=== PATIENT | male | born 1960 | race Caucasian/White ===

== ENCOUNTER 2016-06-14 10:55 | Inpatient (IN) | payer OTHER ==
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
[2016-06-14] MEDS ORDERED: chlordiazePOXIDE HCL 25 MG CAPSULE PO PRN (16:23)
[2016-06-14] MEDS ORDERED: MAG HYDROX/AL HYDROX/SIMETH 30 ML UNIT-DOSE CUP PO PRN (16:23)
[2016-06-14] MEDS ORDERED: MAGNESIUM HYDROX 2400MG/30ML ORAL SUSPENSION 30 ML CUP PO PRN (16:23)
[2016-06-14] MEDS ORDERED: MAGNESIUM CITRATE 300 ML BOTTLE PO PRN (16:23)
[2016-06-14] MEDS ORDERED: MENTHOL/PHENOL 1 EACH UD MM PRN (16:23)
[2016-06-14] MEDS ORDERED: P-EPHED 60MG/TRIPROLIDI 2.5MG TABLET PO PRN (16:23)
[2016-06-14] MEDS ORDERED: guaiFENesin/D-METHORPHAN HB 10 ML UNIT-DOSE CUPS PO PRN (16:23)
[2016-06-14] MEDS ORDERED: LOPERAMIDE HCL 2 MG CAPSULE PO PRN (16:23)
[2016-06-14] MEDS ORDERED: chlordiazePOXIDE HCL 25 MG CAPSULE PO ONE (17:00)
[2016-06-14] MEDS: chlordiazePOXIDE HCL 25 MG CAPSULE PO SCH ×2 (17:53→22:03)
[2016-06-14] MEDS: THIAMINE HCL 100 MG TABLET (FP) PO SCH (22:03)
[2016-06-14] MEDS: hydrOXYzine PAMOATE 50 MG CAPSULE (FP) PO PRN (22:03)
[2016-06-15] MEDS: chlordiazePOXIDE HCL 25 MG CAPSULE PO SCH ×4 (05:37→22:24)
[2016-06-15 10:36] LABS: URINE APPEARANCE CLEAR; URINE BILIRUBIN NEGATIVE (NEGATIVE); URINE BLOOD NEGATIVE (NEGATIVE); URINE COLOR YELLOW; URINE GLUCOSE (UA) NEGATIVE (NEGATIVE); URINE KETONE NEGATIVE (NEGATIVE); URINE LEUK ESTERASE NEGATIVE (NEGATIVE); URINE NITRITE NEGATIVE (NEGATIVE); URINE PROTEIN NEGATIVE (NEGATIVE); URINE UROBILINOGEN 2.0 E.U/dl E.U./dl (0.2-1.0)
[2016-06-15 10:37] LABS: BASOPHIL 0.4 % (0-2.0); EOSINOPHIL 0.7 % (0-4.5); MCHC 33.5 g/dl (32.0-35.9); MEAN CELL VOLUME 89.7 fl (80-96); MEAN PLT VOLUME 8.5 fl (7.5-11.1); PLATELET COUNT 204 K/MM3 (134-434); RDW 15.7 % (11.9-15.9); WHITE BLOOD COUNT 7.8 K/mm3 (4.0-10.0)
[2016-06-15] MEDS: NICOTINE 21 MG/24 HOURS TOPICAL PATCH TD SCH (10:41)
[2016-06-15] MEDS: PRENATAL VITAMINS W/ FOLIC ACID TABLET (FP) PO SCH (10:41)
[2016-06-15 10:46] LABS: ALBUMIN 4.1 g/dl (3.4-5.0); ALK PHOS 131 U/L (45-117); ANION GAP 10 (8-16); BILIRUBIN,TOTAL 0.5 mg/dL (0.2-1.0); CALCIUM 10.1 mg/dL (8.5-10.1); CO2 26 mmol/L (21-32); CREATININE 0.8 mg/dL (0.7-1.3); GLUCOSE,RANDOM 86 mg/dL (74-106); SGOT/AST 30 U/L (15-37); SGPT/ALT 58 U/L (12-78); TOT PROT 8.2 g/dl (6.4-8.2)
[2016-06-15 11:32] LABS: HIV 1 & 2 AB NEGATIVE; HIV 1 AGp24 NEGATIVE
--- NOTE | 2016-06-15 11:34 | CONSULT ---
[facility] Psychiatric Consult - Data Date of interview: 06/15/16 Admission source: [facility] Identifying data: Readmisssion to [facility] for this 56 y/o male seeking detox treatment on for alcohol dependence.Patient is single,a father of one,domiciled,unemployed and supported on [facility] benefits. Substance Abuse History: - Smoking Cessation. Smoking history: Current every day smoker. Have you smoked in the past 12 months: Yes. Aproximately how many cigarettes per day: 10. Cigars Per Day: 0. Hx Chewing Tobacco Use: No. Initiated information on smoking cessation: Yes. 'Breaking Loose' booklet given : 06/14/16. - Substance & Tx. History. Hx Alcohol Use: Yes. Substance Use Type: Alcohol. Hx Substance Use Treatment: Yes. - Substances Abused. Alcohol. Route: Oral. Frequency: Daily. Amount used: 1 AND 1/2 PINTS VODKA. Age of first use: 37. Date of Last Use: 06/14/16. Patient confirmed. Medical History: Consistent with left eye blindness (traumatic injury in 1998). Psychiatric History: Patient denies. Physical/Sexual Abuse/Trauma History: Patient denies. Mental Status Exam - Mental Status Exam Alert and Oriented to: Time, Place, Person Cognitive Function: Good Patient Appearance: Well Groomed Mood: Hopeful, Euthymic Affect: Appropriate, Normal Range Patient Behavior: Fatigued, Appropriate, Cooperative Speech Pattern: Clear Voice Loudness: Normal Thought Process: Goal Oriented Thought Disorder: Not Present Hallucinations: Denies Suicidal Ideation: Denies Homicidal Ideation: Denies Insight/Judgement: Fair Sleep: Poorly, Difficulty falling asleep Appetite: Good Muscle strength/Tone: Normal Gait/Station: Normal Psychiatric Findings - Problem List ([place] 1, 2,3) (1) Alcohol dependence with uncomplicated withdrawal Current Visit: Yes Status: Acute (2) Nicotine dependence Current Visit: Yes Status: Acute Qualifiers: Nicotine product type: cigarettes Substance use status: uncomplicated Qualified Code(s): F17.210 - Nicotine dependence, cigarettes, uncomplicated (3) Substance induced mood disorder Current Visit: Yes Status: Chronic (4) 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 (5) Insomnia Current Visit: Yes Status: Acute - Initial Treatment Plan Initial Treatment Plan: Psychoeducation.Detoxification.Zolpidem 10 mg po hs prn (only for duration of detox course).Discussed with patient.He agrees with plan.Made aware of risk of parasomnias.Observation.
[2016-06-15] MEDS: ZOLPIDEM TARTRATE 5 MG TABLET PO PRN (22:22)
[2016-06-15] MEDS: THIAMINE HCL 100 MG TABLET (FP) PO SCH (22:22)
--- NOTE | 2016-06-15 23:11 | PN ---
S CIWA - CIWA Score Nausea/Vomitin-No Nausea/No Vomiting Muscle Tremors: 3 Anxiety: 3 Agitation: 4-Moderately Restless Paroxysmal Sweats: 3 Orientation: 0-Oriented Tacttile Disturbances: 0-None Auditory Disturbances: 0-None Visual Disturbances: 0-None Headache: 0-None Present CIWA-Ar Total Score: 13 BHS Progress Note (SOAP) Subjective: ANXIETY,TREMORS,SWEATING,INTERRUPTED SLEEP,RESTLESS. Objective: 06/15/16 23:09 Vital Signs - 8 hr 06/15/16 20:03 Temperature 97.1 F L Pulse Rate 90 Respiratory 18 Rate Blood Pressure 120/81 Assessment: 06/15/16 23:10 Withdrawal sx. Plan: CONTINUE DETOX
[2016-06-16] MEDS: chlordiazePOXIDE HCL 25 MG CAPSULE PO SCH ×2 (05:20→10:17)
[2016-06-16] MEDS: PRENATAL VITAMINS W/ FOLIC ACID TABLET (FP) PO SCH (10:17)
[2016-06-16] MEDS: NICOTINE 21 MG/24 HOURS TOPICAL PATCH TD SCH (10:18)
--- NOTE | 2016-06-16 15:11 | PN ---
S CIWA - CIWA Score Nausea/Vomitin Muscle Tremors: 4-Moderate,w/Arms Extend Anxiety: 4-Mod. Anxious/Guarded Agitation: 4-Moderately Restless Paroxysmal Sweats: No Perspiration Orientation: 0-Oriented Tacttile Disturbances: 1-Very Mild Itch/Numbness Auditory Disturbances: 0-None Visual Disturbances: 0-None Headache: 1-Very Mild CIWA-Ar Total Score: 20 BHS Progress Note (SOAP) Subjective: Nausea, diarrhea, anxiety, restless, interrupted sleep, sweating Objective: 06/16/16 15:10 Last Vital Signs Temp Pulse Resp BP Pulse Ox 96.1 F L 107 H 18 111/81 06/16/16 13:37 06/16/16 13:37 06/16/16 13:37 06/16/16 13:37 Laboratory Tests 06/15/16 06/15/16 06/15/16 06:00 06:00 06:00 WBC 7.8 D RBC 5.51 Hgb 16.5 D Hct 49.4 H D MCV 89.7 MCHC 33.5 RDW 15.7 Plt Count 204 MPV 8.5 Neutrophils % 74.0 Lymphocytes % 18.7 Monocytes % 6.2 Eosinophils % 0.7 Basophils % 0.4 Sodium 143 Potassium 4.6 Chloride 107 Carbon Dioxide 26 Anion Gap 10 BUN 12 Creatinine 0.8 Creat Clearance w eGFR > 60 Random Glucose 86 Calcium 10.1 Total Bilirubin 0.5 AST 30 D ALT 58 Alkaline Phosphatase 131 H D Total Protein 8.2 Albumin 4.1 Urine Color Urine Appearance Urine pH Ur Specific [place] Urine Protein Urine Glucose (UA) Urine Ketones Urine Blood Urine Nitrite Urine Bilirubin Urine Urobilinogen Ur Leukocyte Esterase RPR Titer Nonreactive HIV 1&2 Antibody Screen HIV P24 Antigen 06/15/16 06/15/16 07:30 08:00 WBC RBC Hgb Hct MCV MCHC RDW Plt Count MPV Neutrophils % Lymphocytes % Monocytes % Eosinophils % Basophils % Sodium Potassium Chloride Carbon Dioxide Anion Gap BUN Creatinine Creat Clearance w eGFR Random Glucose Calcium Total Bilirubin AST ALT Alkaline Phosphatase Total Protein Albumin Urine Color Yellow Urine Appearance Clear Urine pH 5.0 D Ur Specific [place] 1.021 Urine Protein Negative Urine Glucose (UA) Negative Urine Ketones Negative Urine Blood Negative Urine Nitrite Negative Urine Bilirubin Negative Urine Urobilinogen 2.0 e.u/dl Ur Leukocyte Esterase Negative RPR Titer HIV 1&2 Antibody Screen Negative HIV P24 Antigen Negative Labs noted Assessment: 06/16/16 15:11 Withdrawal symptoms Plan: Continue detox
[2016-06-16] MEDS: chlordiazePOXIDE 5 MG CAPSULE PO SCH ×2 (17:33→22:43)
[2016-06-16] MEDS: THIAMINE HCL 100 MG TABLET (FP) PO SCH (22:43)
[2016-06-16] MEDS: ZOLPIDEM TARTRATE 5 MG TABLET PO PRN (22:45)
[2016-06-17] MEDS: chlordiazePOXIDE 5 MG CAPSULE PO SCH ×2 (05:23→10:29)
[2016-06-17] MEDS: NICOTINE 21 MG/24 HOURS TOPICAL PATCH TD SCH (10:29)
[2016-06-17] MEDS: PRENATAL VITAMINS W/ FOLIC ACID TABLET (FP) PO SCH (10:29)
--- NOTE | 2016-06-17 12:01 | PN ---
BHS Progress Note (SOAP) Subjective: alert,irritable,anxious,interrupted sleep Objective: 06/17/16 12:00 Vital Signs Temperature 96.7 F L 06/17/16 10:03 Pulse Rate 100 H 06/17/16 10:03 Respiratory Rate 19 06/17/16 10:03 Blood Pressure 116/78 06/17/16 10:03 O2 Sat by Pulse Oximetry (%) Assessment: 06/17/16 12:01 withdrawal symptom Plan: continue detox
[2016-06-17] MEDS: ACETAMINOPHEN 325 MG TABLET (FP) PO PRN (17:11)
[2016-06-17] MEDS: chlordiazePOXIDE HCL 10 MG CAPSULE PO SCH ×2 (17:11→22:09)
[2016-06-17] MEDS: ZOLPIDEM TARTRATE 5 MG TABLET PO PRN (22:09)
[2016-06-17] MEDS: THIAMINE HCL 100 MG TABLET (FP) PO SCH (22:10)
[2016-06-18] MEDS: chlordiazePOXIDE HCL 10 MG CAPSULE PO SCH (06:20)
--- NOTE | 2016-06-18 09:06 | PN ---
S Progress Note (SOAP) Subjective: ALERT,NO COMPLAINT Objective: 06/18/16 09:04 Vital Signs Temperature 97.3 F L 06/18/16 06:25 Pulse Rate 94 H 06/18/16 06:25 Respiratory Rate 16 06/18/16 06:25 Blood Pressure 118/74 06/18/16 06:25 O2 Sat by Pulse Oximetry (%) Assessment: 06/18/16 09:04 DETOX COMPLETED,NO WITHDRAWAL SYMPTOM Plan: DISCHARGE FROM DETOX TODAY,CONTINUE NEXT LEVEL OF CARE IN [facility], TRANSFER TO REHAB
--- NOTE | 2016-06-18 09:09 | DS ---
[facility] Detox Discharge Summary Admission Date: 06/14/16 Discharge Date: 06/18/16 - History Present History: Alcohol Dependence Additional Comments: TRANSFER TO [facility] FOR CONTINUING CARE Pertinent Past History: BLINDNESS OF LEFT EYE NICOTINE DEPENDENCE POSITIVE PPD - Physical Exam Results Vital Signs: Vital Signs Temperature 97.3 F L 06/18/16 06:25 Pulse Rate 94 H 06/18/16 06:25 Respiratory Rate 16 06/18/16 06:25 Blood Pressure 118/74 06/18/16 06:25 O2 Sat by Pulse Oximetry (%) Pertinent Admission Physical Exam Findings: WITHDRAWAL SYMPTOM - Treatment Hospital Course: Detox Protocol Followed, Detoxed Safely, Responded well, Discharged Condition Good, Rehab Referral Accepted Patient has Accepted a Rehab Referral to: [facility] - Medication Discharge Medications: Ambulatory Orders NK [No Known Home Medication] 06/14/16 - AMA Did Patient Leave Against Medical Advice: No
[2016-06-18] MEDS: NICOTINE 21 MG/24 HOURS TOPICAL PATCH TD SCH (10:37)
[2016-06-18] MEDS: PRENATAL VITAMINS W/ FOLIC ACID TABLET (FP) PO SCH (10:37)
[2016-06-18 11:18] VITALS: BMI 24.1
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
[2016-06-18] MEDS: diphenhydrAMINE HCL 50 MG CAPSULE PO PRN (21:19)
[2016-06-18] MEDS: THIAMINE HCL 100 MG TABLET (FP) PO SCH (21:19)
--- NOTE | 2016-06-19 09:39 | EKG ---
Test Reason : Blood Pressure : / mmHG Vent. Rate : 078 BPM Atrial Rate : 078 BPM P-R Int : 150 ms QRS Dur : 092 ms QT Int : 366 ms P-R-T Axes : 083 058 068 degrees QTc Int : 417 ms NORMAL SINUS RHYTHM NORMAL ECG NO PREVIOUS ECGS AVAILABLE Confirmed by MARCELLE STEINER, JENN ([id number]) on 06/19/2016 9:39:28 AM Referred By: Jose Parra Confirmed By:JENN IBANEZ MD
[2016-06-19] MEDS: NICOTINE 21 MG/24 HOURS TOPICAL PATCH TD SCH (10:38)
[2016-06-19] MEDS: PRENATAL VITAMINS W/ FOLIC ACID TABLET (FP) PO SCH (10:38)
[2016-06-19] MEDS: THIAMINE HCL 100 MG TABLET (FP) PO SCH (21:13)
[2016-06-19] MEDS: diphenhydrAMINE HCL 50 MG CAPSULE PO PRN (21:13)
[2016-06-19] MEDS: traZODone HCL 100 MG TABLET (FP) PO SCH (21:13)
[2016-06-20] MEDS: NICOTINE 21 MG/24 HOURS TOPICAL PATCH TD SCH (10:28)
[2016-06-20] MEDS: PRENATAL VITAMINS W/ FOLIC ACID TABLET (FP) PO SCH (10:28)
[2016-06-20] MEDS: traZODone HCL 100 MG TABLET (FP) PO SCH (21:03)
[2016-06-20] MEDS: THIAMINE HCL 100 MG TABLET (FP) PO SCH (21:03)
[2016-06-20] MEDS: ACETAMINOPHEN 325 MG TABLET (FP) PO PRN (21:03)
[2016-06-21] MEDS: PRENATAL VITAMINS W/ FOLIC ACID TABLET (FP) PO SCH (09:45)
[2016-06-21] MEDS: NICOTINE 21 MG/24 HOURS TOPICAL PATCH TD SCH (09:45)
[2016-06-21] MEDS: diphenhydrAMINE HCL 50 MG CAPSULE PO PRN (21:32)
[2016-06-21] MEDS: THIAMINE HCL 100 MG TABLET (FP) PO SCH (21:32)
[2016-06-21] MEDS: traZODone HCL 100 MG TABLET (FP) PO SCH (21:32)
[2016-06-22] MEDS: IBUPROFEN 400 MG TABLET (FP) PO PRN (02:30)
[2016-06-22] MEDS: NICOTINE 21 MG/24 HOURS TOPICAL PATCH TD SCH (10:55)
[2016-06-22] MEDS: PRENATAL VITAMINS W/ FOLIC ACID TABLET (FP) PO SCH (10:55)
[2016-06-22] MEDS: traZODone HCL 100 MG TABLET (FP) PO SCH (21:09)
[2016-06-22] MEDS: diphenhydrAMINE HCL 50 MG CAPSULE PO PRN (21:09)
[2016-06-22] MEDS: THIAMINE HCL 100 MG TABLET (FP) PO SCH (21:09)
[2016-06-23] MEDS: PRENATAL VITAMINS W/ FOLIC ACID TABLET (FP) PO SCH (09:57)
[2016-06-23] MEDS: NICOTINE 21 MG/24 HOURS TOPICAL PATCH TD SCH (09:58)
[2016-06-23] MEDS: traZODone HCL 100 MG TABLET (FP) PO SCH (21:12)
[2016-06-23] MEDS: diphenhydrAMINE HCL 50 MG CAPSULE PO PRN (21:12)
[2016-06-23] MEDS: THIAMINE HCL 100 MG TABLET (FP) PO SCH (21:12)
[2016-06-24] MEDS: PRENATAL VITAMINS W/ FOLIC ACID TABLET (FP) PO SCH (09:43)
[2016-06-24] MEDS: NICOTINE 21 MG/24 HOURS TOPICAL PATCH TD SCH (09:43)
[2016-06-24] MEDS: traZODone HCL 100 MG TABLET (FP) PO SCH (21:38)
[2016-06-24] MEDS: diphenhydrAMINE HCL 50 MG CAPSULE PO PRN (21:38)
[2016-06-24] MEDS: THIAMINE HCL 100 MG TABLET (FP) PO SCH (21:38)
[2016-06-25] MEDS: diphenhydrAMINE HCL 50 MG CAPSULE PO PRN ×2 (01:02→21:21)
[2016-06-25] MEDS: IBUPROFEN 400 MG TABLET (FP) PO PRN (01:02)
[2016-06-25] MEDS: PRENATAL VITAMINS W/ FOLIC ACID TABLET (FP) PO SCH (10:51)
[2016-06-25] MEDS: NICOTINE 21 MG/24 HOURS TOPICAL PATCH TD SCH (10:52)
[2016-06-25] MEDS: THIAMINE HCL 100 MG TABLET (FP) PO SCH (21:21)
[2016-06-25] MEDS: traZODone HCL 100 MG TABLET (FP) PO SCH (21:21)
[2016-06-26] MEDS: diphenhydrAMINE HCL 50 MG CAPSULE PO PRN (00:40)
[2016-06-26] MEDS: ACETAMINOPHEN 325 MG TABLET (FP) PO PRN (00:43)
[2016-06-26] MEDS: NICOTINE 21 MG/24 HOURS TOPICAL PATCH TD SCH (10:29)
[2016-06-26] MEDS: PRENATAL VITAMINS W/ FOLIC ACID TABLET (FP) PO SCH (10:29)
[2016-06-26] MEDS: THIAMINE HCL 100 MG TABLET (FP) PO SCH (22:50)
[2016-06-26] MEDS: traZODone HCL 100 MG TABLET (FP) PO SCH (22:50)
[2016-06-27] MEDS: IBUPROFEN 400 MG TABLET (FP) PO PRN ×2 (04:37→21:35)
[2016-06-27] MEDS: PRENATAL VITAMINS W/ FOLIC ACID TABLET (FP) PO SCH (11:00)
[2016-06-27] MEDS: NICOTINE 21 MG/24 HOURS TOPICAL PATCH TD SCH (11:00)
[2016-06-27] MEDS: ACETAMINOPHEN 325 MG TABLET (FP) PO PRN (17:06)
[2016-06-27] MEDS: THIAMINE HCL 100 MG TABLET (FP) PO SCH ×2 (21:35→22:12)
[2016-06-27] MEDS: traZODone HCL 100 MG TABLET (FP) PO SCH ×2 (21:35→22:12)
[2016-06-28] MEDS: ACETAMINOPHEN 325 MG TABLET (FP) PO PRN ×2 (01:59→21:39)
[2016-06-28] MEDS: PRENATAL VITAMINS W/ FOLIC ACID TABLET (FP) PO SCH (10:24)
[2016-06-28] MEDS: NICOTINE 21 MG/24 HOURS TOPICAL PATCH TD SCH (10:24)
[2016-06-28] MEDS: traZODone HCL 100 MG TABLET (FP) PO SCH (21:38)
[2016-06-28] MEDS: THIAMINE HCL 100 MG TABLET (FP) PO SCH (21:38)
[2016-06-29] MEDS: PRENATAL VITAMINS W/ FOLIC ACID TABLET (FP) PO SCH (10:29)
[2016-06-29] MEDS: NICOTINE 21 MG/24 HOURS TOPICAL PATCH TD SCH (10:29)
[2016-06-29] MEDS: hydrOXYzine PAMOATE 50 MG CAPSULE (FP) PO PRN (21:35)
[2016-06-29] MEDS: THIAMINE HCL 100 MG TABLET (FP) PO SCH (21:35)
[2016-06-29] MEDS: traZODone HCL 100 MG TABLET (FP) PO SCH (21:35)
[2016-06-30] MEDS: PRENATAL VITAMINS W/ FOLIC ACID TABLET (FP) PO SCH (09:46)
[2016-06-30] MEDS: NICOTINE 21 MG/24 HOURS TOPICAL PATCH TD SCH (09:46)
[2016-06-30] MEDS: TOLNAFTATE 1% CREAM 15 GM TUBE TP SCH ×3 (09:47→21:55)
[2016-06-30] MEDS: THIAMINE HCL 100 MG TABLET (FP) PO SCH (21:55)
[2016-06-30] MEDS: traZODone HCL 100 MG TABLET (FP) PO SCH (21:55)
[2016-06-30] MEDS: hydrOXYzine PAMOATE 50 MG CAPSULE (FP) PO PRN (21:55)
[2016-07-01] MEDS: TOLNAFTATE 1% CREAM 15 GM TUBE TP SCH ×2 (10:09→21:54)
[2016-07-01] MEDS: NICOTINE 21 MG/24 HOURS TOPICAL PATCH TD SCH (10:09)
[2016-07-01] MEDS: PRENATAL VITAMINS W/ FOLIC ACID TABLET (FP) PO SCH (10:09)
[2016-07-01] MEDS: THIAMINE HCL 100 MG TABLET (FP) PO SCH (21:53)
[2016-07-01] MEDS: hydrOXYzine PAMOATE 50 MG CAPSULE (FP) PO PRN (21:53)
[2016-07-01] MEDS: traZODone HCL 100 MG TABLET (FP) PO SCH (21:53)
--- NOTE | 2016-07-02 09:07 | PN ---
Psychiatric Progress Note Vital Signs: Vital Signs Period Temp Pulse Resp BP Sys/Avalos Pulse Ox Last 24 Hr 98.3 F 90 18-18 99/59 Date of Session: 07/02/16 Chief Complaint:: Psychiatrist Discharge Note HPI: Patient addressing Alcohol Dependence comorbid with Nicotine Dependence and Substance-InducedMood Disorder ROS: Blindness left eye, PPD+ were medically managed Current Medications: Active Medications Generic Name Dose Route Start Last Admin Trade Name Freq PRN Reason Stop Dose Admin Acetaminophen 650 mg 06/14/16 16:23 06/28/16 21:39 Tylenol - PO 650 mg Q4H PRN Administration FEVER OR PAIN Al Hydroxide/Mg Hydroxide 30 ml 06/14/16 16:23 06/29/16 20:16 Mylanta Oral Suspension - PO 30 ml Q6H PRN Administration DYSPEPSIA Diphenhydramine HCl 50 mg 06/14/16 16:23 06/26/16 00:40 Benadryl - PO 50 mg HSMR1 PRN Administration INSOMNIA Eucalyptus/Menthol/Phenol/Sorbitol 1 each 06/14/16 16:23 Cepastat Lozenge - MM Q4H PRN SORE THROAT Guaifenesin 10 ml 06/14/16 16:23 Robitussin Dm - PO Q6H PRN COUGH Hydroxyzine Pamoate 50 mg 06/14/16 16:23 07/01/16 21:53 Vistaril - PO 50 mg Q4H PRN Administration AGITATION Ibuprofen 400 mg 06/14/16 16:23 06/27/16 21:35 Motrin - PO 400 mg Q6H PRN Administration SEVERE PAIN Loperamide HCl 4 mg 06/14/16 16:23 Imodium - PO Q6H PRN DIARRHEA Magnesium Citrate 300 ml 06/14/16 16:23 Citroma - PO Q48H PRN CONSTIPATION Magnesium Hydroxide 30 ml 06/14/16 16:23 Milk Of Magnesia - PO DAILY PRN CONSTIPATION Nicotine 21 mg 06/15/16 10:00 07/01/16 10:09 Nicoderm Patch - TD Not Given DAILY RAJAN Multivit/Folic Acid/Iron 1 tab 06/15/16 10:00 07/01/16 10:09 Vitamins (Sjr) - PO 1 tab DAILY RAJAN Administration Pseudoephedrine/Triprolidine 1 combo 06/14/16 16:23 Actifed - PO TID PRN NASAL CONGESTION Thiamine HCl 100 mg 06/14/16 22:00 07/01/16 21:53 Vitamin B1 - PO 100 mg HS RAJAN Administration Tolnaftate 1 applic 06/30/16 07:30 07/01/16 21:54 Tinactin 1% Cream - TP 1 applic BID RAJAN Administration Trazodone HCl 100 mg 06/19/16 22:00 07/01/16 21:53 Desyrel - PO 100 mg HS RAJAN Administration Current Side Effect: No Lab tests ordered: Yes Lab tests reviewed: Yes Provider note:: Patient will complete this program on 07/03/16. He has met his treatment goals and will continue to address his issues in outpatient treatment at [facility]. He verbalized understanding of the negative consequences of his addiction and from his participation in this program, he has learned to recognize his triggers and the need to attend outpatient program and 12 steps meeting to maintain abstinent. He responded well to Trazadone 100 mg po HS for insomnia. Script for 30 days supply of that medication will be electronically transmitted to [facility] at [facility] [place] [address]. He is stable for discharge on 07/03/16 Total face to face time:: 5 Psychiatric Treatment Plan - Problem List (1) Alcohol dependence with uncomplicated withdrawal Current Visit: Yes (2) Nicotine dependence Current Visit: Yes Qualifiers: Nicotine product type: cigarettes Substance use status: uncomplicated Qualified Code(s): F17.210 - Nicotine dependence, cigarettes, uncomplicated (3) Substance induced mood disorder Current Visit: Yes (4) Blindness of left eye Current Visit: Yes (5) Positive PPD Current Visit: No Comment: chest x-ray done. negative
[2016-07-02] MEDS: TOLNAFTATE 1% CREAM 15 GM TUBE TP SCH ×2 (10:30→21:28)
[2016-07-02] MEDS: NICOTINE 21 MG/24 HOURS TOPICAL PATCH TD SCH (10:30)
[2016-07-02] MEDS: PRENATAL VITAMINS W/ FOLIC ACID TABLET (FP) PO SCH (10:30)
[2016-07-02] MEDS: THIAMINE HCL 100 MG TABLET (FP) PO SCH (21:28)
[2016-07-02] MEDS: traZODone HCL 100 MG TABLET (FP) PO SCH (21:28)
[2016-07-03 07:35] VITALS: BP 119/65; PULSE 80; TEMP 98.2
== END 2016-07-03 09:55 | disposition home or self-care (01) | DRG 895 ==
LOC: YASAS 10:55 → Y3N 16:22 → Y3W 06-18 10:39
PROVIDERS: ADMIT Internal Medicine; ATTEND Psychiatry & Neurology Psychiatry
PROC: HZ2ZZZZ Detoxification Services for Substance Abuse Treatment (ICD-10-PCS; principal; 2016-06-14)
PROC: HZ42ZZZ Group Counseling for Substance Abuse Treatment, Cognitive-Behavioral (ICD-10-PCS; 2016-06-18)
DX: F10.230 Alcohol dependence with withdrawal, uncomplicated (principal); F17.210 Nicotine dependence, cigarettes, uncomplicated; F19.24 Other psychoactive substance dependence with psychoactive substance-induced mood disorder; H54.41 Blindness, right eye, normal vision left eye; R76.11 Nonspecific reaction to tuberculin skin test without active tuberculosis; G47.00 Insomnia, unspecified
CPT/HCPCS: 36415; 80053; 81003; 85025; 86593; 87389; 93005; 93010

== ENCOUNTER 2017-10-08 10:57 | Inpatient (IN) | payer OTHER ==
[2017-10-08 11:57] VITALS: BMI 20.5
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
[2017-10-08] MEDS ORDERED: MAG HYDROX/AL HYDROX/SIMETH 30 ML UNIT-DOSE CUP PO PRN (13:38)
[2017-10-08] MEDS ORDERED: guaiFENesin/D-METHORPHAN HB 10 ML UNIT-DOSE CUPS PO PRN (13:38)
[2017-10-08] MEDS ORDERED: P-EPHED 60MG/TRIPROLIDI 2.5MG TABLET PO PRN (13:38)
[2017-10-08] MEDS ORDERED: MAGNESIUM CITRATE 300 ML BOTTLE PO PRN (13:38)
[2017-10-08] MEDS ORDERED: ACETAMINOPHEN 325 MG TABLET (FP) PO PRN (13:38)
[2017-10-08] MEDS ORDERED: LOPERAMIDE HCL 2 MG CAPSULE PO PRN (13:38)
[2017-10-08] MEDS ORDERED: hydrOXYzine PAMOATE 50 MG CAPSULE (FP) PO PRN (13:38)
[2017-10-08] MEDS ORDERED: IBUPROFEN 400 MG TABLET (FP) PO PRN (13:38)
[2017-10-08] MEDS ORDERED: MAGNESIUM HYDROX 2400MG/30ML ORAL SUSPENSION 30 ML CUP PO PRN (13:38)
[2017-10-08] MEDS ORDERED: MENTHOL/PHENOL 1 EACH UD MM PRN (13:38)
[2017-10-08] MEDS ORDERED: METHADONE HCL 10 MG TABLET (FOR DETOX USE ONLY) PO ONE ×2 (14:45→23:00)
[2017-10-08] MEDS: diazePAM 5 MG TABLET PO PRN ×2 (14:58→19:44)
[2017-10-08] MEDS: NICOTINE POLACRILEX 2 MG GUM BC PRN (14:59)
[2017-10-08] MEDS: NICOTINE 21 MG/24 HOURS TOPICAL PATCH TD SCH (14:59)
--- NOTE | 2017-10-08 16:53 | CONSULT ---
[facility] Psychiatric Consult - Data Date of interview: 10/08/17 Admission source: [facility] Identifying data: Another admisssion to [facility] for this 57 y/o male seeking detox treatment on for heroin and cocaine dependence.Patient is single,a father of one,domiciled,unemployed and supported on [facility] benefits. Substance Abuse History: Confirmed by patient in this session.Details in current [facility] report : Smoking history: Current every day smoker. Have you smoked in the past 12 months: Yes. Aproximately how many cigarettes per day: 10. Cigars Per Day: 0. Hx Chewing Tobacco Use: No. Initiated information on smoking cessation: Yes. 'Breaking Loose' booklet given: 10/08/17. - Substance & Tx. History. Hx Alcohol Use: No. Hx Substance Use: Yes. Substance Use Type : Cocaine, Heroin. Hx Substance Use Treatment: Yes ([facility] rehab 07/03/16 ). - Substances Abused. Heroin. Route: Injection. Frequency: Daily. Amount used: 10 BAGS. Age of first use: 37. Date of Last Use: 10/08/17. Crack. Route: Smoking. Frequency: Daily. Amount used: $80. Age of first use : 50. Date of Last Use: 10/08/17 Medical History: Hearing impediment,hepatitis C and left eye blindness ( traumatic injury in 1998). Psychiatric History: Patient denies. Physical/Sexual Abuse/Trauma History: Patient denies. Additional Comment: Urine Drug Screen Results: DOMINICK-Cocaine, OPI-Opiates, MTD- Methadone.Noted. Mental Status Exam - Mental Status Exam Alert and Oriented to: Time, Place, Person Cognitive Function: Good Patient Appearance: Well Groomed Mood: Withdrawn, Apprehensive Affect: Mood Congruent Patient Behavior: Fatigued, Appropriate, Cooperative Speech Pattern: Clear Voice Loudness: Normal Thought Process: Intact, Goal Oriented Thought Disorder: Not Present Hallucinations: Denies Suicidal Ideation: Denies Homicidal Ideation: Denies Insight/Judgement: Poor Sleep: Poorly, Difficulty falling asleep Appetite: Fair Muscle strength/Tone: Normal Gait/Station: Normal Psychiatric Findings - Problem List ([place] 1, 2,3) (1) Alcohol dependence with uncomplicated withdrawal Current Visit: Yes Status: Acute (2) Cocaine dependence Current Visit: Yes Status: Acute Qualifiers: Substance use status: uncomplicated Qualified Code(s): F14.20 - Cocaine dependence, uncomplicated (3) Nicotine dependence Current Visit: Yes Status: Acute Qualifiers: Nicotine product type: cigarettes Substance use status: uncomplicated Qualified Code(s): F17.210 - Nicotine dependence, cigarettes, uncomplicated (4) Substance induced mood disorder Current Visit: Yes Status: Acute (5) Insomnia Current Visit: Yes Status: Acute - Initial Treatment Plan Initial Treatment Plan: Psychoeducation and support.Detoxification.Sleep hygiene.Ambien 5 mg po hs prn.Side effects/benefits discussed with the patient.Consent (verbal) given.Observation.
[2017-10-08 18:32] LABS: URINE APPEARANCE SLCLOUDY; URINE BILIRUBIN NEGATIVE (<2.0 mg/dL); URINE COLOR AMBER; URINE GLUCOSE (UA) NEGATIVE (NEGATIVE); URINE KETONE NEGATIVE (NEGATIVE); URINE LEUK ESTERASE NEGATIVE (NEGATIVE); URINE NITRITE NEGATIVE (NEGATIVE); URINE PROTEIN NEGATIVE (NEGATIVE); URINE UROBILINOGEN 4.0 E.U/dl mg/dL (0.2-1.0)
[2017-10-08 19:01] LABS: EPI CELLS RARE /HPF (FEW); URINE BACTERIA RARE /hpf (NONE SEEN); URINE MUCUS MANY
[2017-10-08] MEDS ORDERED: MELATONIN 5 MG TABLETS PO PRN (22:00)
[2017-10-08] MEDS: THIAMINE HCL 100 MG TABLET (FP) PO SCH (22:15)
[2017-10-08] MEDS: BACITRACIN 0.9 GM PACKET TP SCH (22:45)
[2017-10-09] MEDS: diazePAM 5 MG TABLET PO PRN ×3 (02:14→10:17)
[2017-10-09] MEDS: NICOTINE POLACRILEX 2 MG GUM BC PRN ×2 (07:01→10:18)
[2017-10-09 09:51] LABS: HEMATOCRIT 35.7 % (35.4-49); HEMOGLOBIN 12.4 GM/dL (11.7-16.9); MCHC 34.7 g/dl (32.0-35.9); MEAN CELL VOLUME 86.5 fl (80-96); MEAN PLT VOLUME 8.5 fl (7.5-11.1); PLATELET COUNT 222 K/MM3 (134-434); RBC 4.13 M/mm3 (4.00-5.60); RDW 13.5 % (11.9-15.9); WHITE BLOOD COUNT 4.3 K/mm3 (4.0-10.0)
[2017-10-09] MEDS ORDERED: METHADONE HCL 10 MG TABLET (FOR DETOX USE ONLY) PO ONE (10:00)
[2017-10-09] MEDS: PRENATAL VITAMINS W/ FOLIC ACID TABLET (FP) PO SCH (10:17)
[2017-10-09] MEDS: BACITRACIN 0.9 GM PACKET TP SCH ×2 (10:17→22:23)
[2017-10-09] MEDS: NICOTINE 21 MG/24 HOURS TOPICAL PATCH TD SCH (10:18)
[2017-10-09 11:01] LABS: ALBUMIN 3.2 g/dl (3.4-5.0); ANION GAP 3 (8-16); BLOOD UREA NITROGEN 14 mg/dL (7-18); CALCIUM 8.8 mg/dL (8.5-10.1); CHLORIDE 104 mmol/L (98-107); CO2 31 mmol/L (21-32); CREATININE 0.9 mg/dL (0.7-1.3); GLUCOSE,RANDOM 75 mg/dL (74-106); POTASSIUM 5.3 mmol/L (3.5-5.1); SGOT/AST 29 U/L (15-37); SGPT/ALT 34 U/L (12-78); SODIUM 138 mmol/L (136-145)
[2017-10-09 11:02] LABS: ALK PHOS 102 U/L (45-117); BILIRUBIN,TOTAL 0.6 mg/dL (0.2-1.0); TOT PROT 7.7 g/dl (6.4-8.2)
--- NOTE | 2017-10-09 12:40 | PN ---
BHS COWS - Scale Resting Pulse: 0= [place] 80 or Below Sweatin= Chills/Flushing Restless Observation: 0= Sits Still Pupil Size: 0= Normal to Room Light Bone or Joint Aches: 0= None Runny Nose/ Eye Tearin= Runny Nose/Eyes GI Upset > 30mins: 1= Stomach Cramp Tremor Observation of Outstretched Hands: 0= None Yawning Observation: 2= >3x During Session Anxiety or Irritability: 2=Irritable/Anxious Goose Flesh Skin: 3=Piloerection COWS Score: 11 BHS Progress Note (SOAP) Subjective: Fatigue, Interrupted Sleep, Anxious, H/A, Sweating. Objective: PATIENT A & O X 3. NO ACUTE DISTRESS. 10/09/17 12:38 Vital Signs Temperature 95.8 F L 10/09/17 09:20 Pulse Rate 72 10/09/17 09:20 Respiratory Rate 16 10/09/17 09:20 Blood Pressure 87/54 10/09/17 09:20 O2 Sat by Pulse Oximetry (%) Laboratory Tests 10/08/17 10/08/17 10/09/17 15:00 15:00 06:00 WBC 4.3 D RBC 4.13 D Hgb 12.4 D Hct 35.7 D MCV 86.5 MCH 30.0 MCHC 34.7 RDW 13.5 D Plt Count 222 MPV 8.5 Sodium Potassium Chloride Carbon Dioxide Anion Gap BUN Creatinine Creat Clearance w eGFR Random Glucose Calcium Total Bilirubin AST ALT Alkaline Phosphatase Total Protein Albumin Urine Color Claire Urine Appearance Slcloudy Urine pH 6.0 Ur Specific [place] 1.024 Urine Protein Negative Urine Glucose (UA) Negative Urine Ketones Negative Urine Blood 1+ H Urine Nitrite Negative Urine Bilirubin Negative Urine Urobilinogen 4.0 e.u/dl Ur Leukocyte Esterase Negative Urine WBC (Auto) 1 Urine RBC (Auto) 7 Ur Epithelial Cells Rare Urine Bacteria Rare Urine Mucus Many RPR Titer HIV 1&2 Antibody Screen Negative HIV P24 Antigen Negative 10/09/17 10/09/17 06:00 06:00 WBC RBC Hgb Hct MCV MCH MCHC RDW Plt Count MPV Sodium 138 Potassium 5.3 H Chloride 104 Carbon Dioxide 31 Anion Gap 3 L BUN 14 Creatinine 0.9 Creat Clearance w eGFR > 60 Random Glucose 75 Calcium 8.8 Total Bilirubin 0.6 AST 29 ALT 34 D Alkaline Phosphatase 102 D Total Protein 7.7 Albumin 3.2 L D Urine Color Urine Appearance Urine pH Ur Specific [place] Urine Protein Urine Glucose (UA) Urine Ketones Urine Blood Urine Nitrite Urine Bilirubin Urine Urobilinogen Ur Leukocyte Esterase Urine WBC (Auto) Urine RBC (Auto) Ur Epithelial Cells Urine Bacteria Urine Mucus RPR Titer Nonreactive HIV 1&2 Antibody Screen HIV P24 Antigen LABS NOTED. Assessment: 10/09/17 12:39 WITHDRAWAL SYMPTOMS. Plan: CONTINUE DETOX. INCREASE DAILY PO FLUID INTAKE. REPEAT K LEVEL ON 10/11/2017 FOR ELEVATED ADMISSION LEVEL.
[2017-10-09] MEDS: THIAMINE HCL 100 MG TABLET (FP) PO SCH (22:23)
[2017-10-09] MEDS: ZOLPIDEM TARTRATE 5 MG TABLET PO PRN (23:26)
[2017-10-10] MEDS: diazePAM 5 MG TABLET PO PRN ×4 (05:12→19:35)
[2017-10-10] MEDS ORDERED: METHADONE HCL 5 MG TABLET (FOR DETOX USE ONLY) PO ONE (10:00)
[2017-10-10] MEDS: PRENATAL VITAMINS W/ FOLIC ACID TABLET (FP) PO SCH (10:16)
[2017-10-10] MEDS: BACITRACIN 0.9 GM PACKET TP SCH ×2 (10:16→22:22)
[2017-10-10] MEDS: NICOTINE 21 MG/24 HOURS TOPICAL PATCH TD SCH (10:17)
[2017-10-10] MEDS: NICOTINE POLACRILEX 2 MG GUM BC PRN ×2 (10:18→19:37)
--- NOTE | 2017-10-10 12:40 | PN ---
BHS COWS - Scale Resting Pulse: 0= [place] 80 or Below Sweatin= Chills/Flushing Restless Observation: 1= Difficult to Sit Still Pupil Size: 0= Normal to Room Light Bone or Joint Aches: 0= None Runny Nose/ Eye Tearin= Runny Nose/Eyes GI Upset > 30mins: 0= None Tremor Observation of Outstretched Hands: 2= Slight Tremor Visible Yawning Observation: 1= 1-2x During Session Anxiety or Irritability: 2=Irritable/Anxious Goose Flesh Skin: 3=Piloerection COWS Score: 12 BHS Progress Note (SOAP) Subjective: Tremors, H/A, Anxious, Fatigue. Objective: PATIENT A & O X 3, OBSERVED AMBULATING ON UNIT. NO ACUTE DISTRESS. 10/10/17 12:41 Vital Signs Temperature 96.9 F L 10/10/17 09:29 Pulse Rate 79 10/10/17 09:29 Respiratory Rate 16 10/10/17 09:29 Blood Pressure 102/57 10/10/17 09:29 O2 Sat by Pulse Oximetry (%) Laboratory Tests 10/08/17 10/08/17 10/09/17 15:00 15:00 06:00 WBC 4.3 D RBC 4.13 D Hgb 12.4 D Hct 35.7 D MCV 86.5 MCH 30.0 MCHC 34.7 RDW 13.5 D Plt Count 222 MPV 8.5 Sodium Potassium Chloride Carbon Dioxide Anion Gap BUN Creatinine Creat Clearance w eGFR Random Glucose Calcium Total Bilirubin AST ALT Alkaline Phosphatase Total Protein Albumin Urine Color Claire Urine Appearance Slcloudy Urine pH 6.0 Ur Specific [place] 1.024 Urine Protein Negative Urine Glucose (UA) Negative Urine Ketones Negative Urine Blood 1+ H Urine Nitrite Negative Urine Bilirubin Negative Urine Urobilinogen 4.0 e.u/dl Ur Leukocyte Esterase Negative Urine WBC (Auto) 1 Urine RBC (Auto) 7 Ur Epithelial Cells Rare Urine Bacteria Rare Urine Mucus Many RPR Titer HIV 1&2 Antibody Screen Negative HIV P24 Antigen Negative 10/09/17 10/09/17 06:00 06:00 WBC RBC Hgb Hct MCV MCH MCHC RDW Plt Count MPV Sodium 138 Potassium 5.3 H Chloride 104 Carbon Dioxide 31 Anion Gap 3 L BUN 14 Creatinine 0.9 Creat Clearance w eGFR > 60 Random Glucose 75 Calcium 8.8 Total Bilirubin 0.6 AST 29 ALT 34 D Alkaline Phosphatase 102 D Total Protein 7.7 Albumin 3.2 L D Urine Color Urine Appearance Urine pH Ur Specific [place] Urine Protein Urine Glucose (UA) Urine Ketones Urine Blood Urine Nitrite Urine Bilirubin Urine Urobilinogen Ur Leukocyte Esterase Urine WBC (Auto) Urine RBC (Auto) Ur Epithelial Cells Urine Bacteria Urine Mucus RPR Titer Nonreactive HIV 1&2 Antibody Screen HIV P24 Antigen LABS NOTED. Assessment: 10/10/17 12:41 WITHDRAWAL SYMPTOMS. Plan: CONTINUE DETOX. INCREASE DAILY PO FLUID INTAKE.
[2017-10-10] MEDS: THIAMINE HCL 100 MG TABLET (FP) PO SCH (22:23)
[2017-10-10] MEDS: ZOLPIDEM TARTRATE 5 MG TABLET PO PRN (22:23)
[2017-10-11] MEDS: diazePAM 5 MG TABLET PO PRN ×3 (00:41→10:31)
[2017-10-11] MEDS ORDERED: METHADONE HCL 5 MG TABLET (FOR DETOX USE ONLY) PO ONE (10:00)
[2017-10-11] MEDS: BACITRACIN 0.9 GM PACKET TP SCH ×2 (10:31→22:24)
[2017-10-11] MEDS: NICOTINE 21 MG/24 HOURS TOPICAL PATCH TD SCH (10:31)
[2017-10-11] MEDS: PRENATAL VITAMINS W/ FOLIC ACID TABLET (FP) PO SCH (10:31)
[2017-10-11] MEDS: NICOTINE POLACRILEX 2 MG GUM BC PRN (10:33)
--- NOTE | 2017-10-11 16:24 | PN ---
BHS Progress Note (SOAP) Subjective: Fatigue, Sweating, Tremors. Objective: PATIENT A & O X 3, OBSERVED AMBULATING ON UNIT. NO ACUTE DISTRESS. 10/11/17 16:25 Vital Signs Temperature 96.4 F L 10/11/17 13:25 Pulse Rate 80 10/11/17 13:25 Respiratory Rate 16 10/11/17 13:25 Blood Pressure 105/61 10/11/17 13:25 O2 Sat by Pulse Oximetry (%) Laboratory Tests 10/08/17 10/08/17 10/09/17 15:00 15:00 06:00 WBC 4.3 D RBC 4.13 D Hgb 12.4 D Hct 35.7 D MCV 86.5 MCH 30.0 MCHC 34.7 RDW 13.5 D Plt Count 222 MPV 8.5 Sodium Potassium Chloride Carbon Dioxide Anion Gap BUN Creatinine Creat Clearance w eGFR Random Glucose Calcium Total Bilirubin AST ALT Alkaline Phosphatase Total Protein Albumin Urine Color Claire Urine Appearance Slcloudy Urine pH 6.0 Ur Specific [place] 1.024 Urine Protein Negative Urine Glucose (UA) Negative Urine Ketones Negative Urine Blood 1+ H Urine Nitrite Negative Urine Bilirubin Negative Urine Urobilinogen 4.0 e.u/dl Ur Leukocyte Esterase Negative Urine WBC (Auto) 1 Urine RBC (Auto) 7 Ur Epithelial Cells Rare Urine Bacteria Rare Urine Mucus Many RPR Titer HIV 1&2 Antibody Screen Negative HIV P24 Antigen Negative 10/09/17 10/09/17 10/11/17 06:00 06:00 07:40 WBC RBC Hgb Hct MCV MCH MCHC RDW Plt Count MPV Sodium 138 Potassium 5.3 H 4.1 D Chloride 104 Carbon Dioxide 31 Anion Gap 3 L BUN 14 Creatinine 0.9 Creat Clearance w eGFR > 60 Random Glucose 75 Calcium 8.8 Total Bilirubin 0.6 AST 29 ALT 34 D Alkaline Phosphatase 102 D Total Protein 7.7 Albumin 3.2 L D Urine Color Urine Appearance Urine pH Ur Specific [place] Urine Protein Urine Glucose (UA) Urine Ketones Urine Blood Urine Nitrite Urine Bilirubin Urine Urobilinogen Ur Leukocyte Esterase Urine WBC (Auto) Urine RBC (Auto) Ur Epithelial Cells Urine Bacteria Urine Mucus RPR Titer Nonreactive HIV 1&2 Antibody Screen HIV P24 Antigen LABS NOTED. Assessment: 10/11/17 16:25 WITHDRAWAL SYMPTOMS. Plan: CONTINUE DETOX.
[2017-10-11] MEDS: THIAMINE HCL 100 MG TABLET (FP) PO SCH (22:24)
[2017-10-11] MEDS: ZOLPIDEM TARTRATE 5 MG TABLET PO PRN (22:24)
[2017-10-12 06:35] VITALS: BP 90/64; PULSE 81; TEMP 96.1
[2017-10-12] MEDS ORDERED: METHADONE HCL 10 MG TABLET (FOR DETOX USE ONLY) PO ONE (10:00)
--- NOTE | 2017-10-12 16:24 | PN ---
S Progress Note (SOAP) Subjective: PT DECLINED TO CONTINUE WITH DETOX. Objective: 10/12/17 16:31 Vital Signs Temperature 96.1 F L 10/12/17 06:35 Pulse Rate 81 10/12/17 06:35 Respiratory Rate 18 10/12/17 06:35 Blood Pressure 90/64 10/12/17 06:35 O2 Sat by Pulse Oximetry (%) Laboratory Last Values WBC 4.3 K/mm3 (4.0-10.0) D 10/09/17 06:00 RBC 4.13 M/mm3 (4.00-5.60) D 10/09/17 06:00 Hgb 12.4 GM/dL (11.7-16.9) D 10/09/17 06:00 Hct 35.7 % (35.4-49) D 10/09/17 06:00 MCV 86.5 fl (80-96) 10/09/17 06:00 MCH 30.0 pg (25.7-33.7) 10/09/17 06:00 MCHC 34.7 g/dl (32.0-35.9) 10/09/17 06:00 RDW 13.5 % (11.9-15.9) D 10/09/17 06:00 Plt Count 222 K/MM3 (134-434) 10/09/17 06:00 MPV 8.5 fl (7.5-11.1) 10/09/17 06:00 Sodium 138 mmol/L (136-145) 10/09/17 06:00 Potassium 4.1 mmol/L (3.5-5.1) D 10/11/17 07:40 Chloride 104 mmol/L (98-107) 10/09/17 06:00 Carbon Dioxide 31 mmol/L (21-32) 10/09/17 06:00 Anion Gap 3 (8-16) L 10/09/17 06:00 BUN 14 mg/dL (7-18) 10/09/17 06:00 Creatinine 0.9 mg/dL (0.7-1.3) 10/09/17 06:00 Creat Clearance w eGFR > 60 (>60) 10/09/17 06:00 Random Glucose 75 mg/dL (74-106) 10/09/17 06:00 Calcium 8.8 mg/dL (8.5-10.1) 10/09/17 06:00 Total Bilirubin 0.6 mg/dL (0.2-1.0) 10/09/17 06:00 AST 29 U/L (15-37) 10/09/17 06:00 ALT 34 U/L (12-78) D 10/09/17 06:00 Alkaline Phosphatase 102 U/L (45-117) D 10/09/17 06:00 Total Protein 7.7 g/dl (6.4-8.2) 10/09/17 06:00 Albumin 3.2 g/dl (3.4-5.0) L D 10/09/17 06:00 Urine Color Claire 10/08/17 15:00 Urine Appearance Slcloudy 10/08/17 15:00 Urine pH 6.0 (5.0-8.0) 10/08/17 15:00 Ur Specific [place] 1.024 (1.001-1.035) 10/08/17 15:00 Urine Protein Negative (NEGATIVE) 10/08/17 15:00 Urine Glucose (UA) Negative (NEGATIVE) 10/08/17 15:00 Urine Ketones Negative (NEGATIVE) 10/08/17 15:00 Urine Blood 1+ (NEGATIVE) H 10/08/17 15:00 Urine Nitrite Negative (NEGATIVE) 10/08/17 15:00 Urine Bilirubin Negative (<2.0 mg/dL) 10/08/17 15:00 Urine Urobilinogen 4.0 e.u/dl mg/dL (0.2-1.0) 10/08/17 15:00 Ur Leukocyte Esterase Negative (NEGATIVE) 10/08/17 15:00 Urine WBC (Auto) 1 /hpf (3-5) 10/08/17 15:00 Urine RBC (Auto) 7 /hpf (0-3) 10/08/17 15:00 Ur Epithelial Cells Rare /HPF (FEW) 10/08/17 15:00 Urine Bacteria Rare /hpf (NONE SEEN) 10/08/17 15:00 Urine Mucus Many 10/08/17 15:00 RPR Titer Nonreactive (NONREACTIVE) 10/09/17 06:00 HIV 1&2 Antibody Screen Negative 10/08/17 15:00 HIV P24 Antigen Negative 10/08/17 15:00 Assessment: 10/12/17 16:32 NAD Plan: PT SIGNED OUT AMA
--- NOTE | 2017-10-12 16:24 | DS ---
[facility] Detox Discharge Summary Admission Date: 10/08/17 Discharge Date: 10/12/17 - History Present History: Cocaine Dependence, Opioid Dependence Additional Comments: PT DECLINED TO CONTINUE WITH DETOX. ALERT O X 3. NAD. Pertinent Past History: PLEASE SEE DX BELOW - Physical Exam Results Vital Signs: Vital Signs Temperature 96.1 F L 10/12/17 06:35 Pulse Rate 81 10/12/17 06:35 Respiratory Rate 18 10/12/17 06:35 Blood Pressure 90/64 10/12/17 06:35 O2 Sat by Pulse Oximetry (%) Pertinent Admission Physical Exam Findings: WITHDRAWAL SX Laboratory Tests 10/08/17 10/08/17 10/09/17 15:00 15:00 06:00 WBC 4.3 D RBC 4.13 D Hgb 12.4 D Hct 35.7 D MCV 86.5 MCH 30.0 MCHC 34.7 RDW 13.5 D Plt Count 222 MPV 8.5 Sodium Potassium Chloride Carbon Dioxide Anion Gap BUN Creatinine Creat Clearance w eGFR Random Glucose Calcium Total Bilirubin AST ALT Alkaline Phosphatase Total Protein Albumin Urine Color [place] Urine Appearance Slcloudy Urine pH 6.0 Ur Specific [place] 1.024 Urine Protein Negative Urine Glucose (UA) Negative Urine Ketones Negative Urine Blood 1+ H Urine Nitrite Negative Urine Bilirubin Negative Urine Urobilinogen 4.0 e.u/dl Ur Leukocyte Esterase Negative Urine WBC (Auto) 1 Urine RBC (Auto) 7 Ur Epithelial Cells Rare Urine Bacteria Rare Urine Mucus Many RPR Titer HIV 1&2 Antibody Screen Negative HIV P24 Antigen Negative 10/09/17 10/09/17 10/11/17 06:00 06:00 07:40 WBC RBC Hgb Hct MCV MCH MCHC RDW Plt Count MPV Sodium 138 Potassium 5.3 H 4.1 D Chloride 104 Carbon Dioxide 31 Anion Gap 3 L BUN 14 Creatinine 0.9 Creat Clearance w eGFR > 60 Random Glucose 75 Calcium 8.8 Total Bilirubin 0.6 AST 29 ALT 34 D Alkaline Phosphatase 102 D Total Protein 7.7 Albumin 3.2 L D Urine Color Urine Appearance Urine pH Ur Specific [place] Urine Protein Urine Glucose (UA) Urine Ketones Urine Blood Urine Nitrite Urine Bilirubin Urine Urobilinogen Ur Leukocyte Esterase Urine WBC (Auto) Urine RBC (Auto) Ur Epithelial Cells Urine Bacteria Urine Mucus RPR Titer Nonreactive HIV 1&2 Antibody Screen HIV P24 Antigen - Treatment Hospital Course: Discharged Condition Good - Medication Discharge Medications: Ambulatory Orders NK [No Known Home Medication] 10/08/17 - Diagnosis (1) Cocaine dependence Status: Acute Qualifiers: Substance use status: uncomplicated Qualified Code(s): F14.20 - Cocaine dependence, uncomplicated (2) Nicotine dependence Status: Acute Qualifiers: Nicotine product type: cigarettes Substance use status: in withdrawal Qualified Code(s): F17.213 - Nicotine dependence, cigarettes, with withdrawal (3) Opioid dependence with withdrawal Status: Acute (4) Weight loss Status: Acute (5) Blindness of left eye Status: Chronic - AMA Did Patient Leave Against Medical Advice: Yes (AMA)
[2017-10-13] MEDS ORDERED: METHADONE HCL 5 MG TABLET (FOR DETOX USE ONLY) PO ONE (06:00)
== END 2017-10-12 09:00 | disposition left against medical advice (07) | DRG 894 ==
LOC: YASAS 10:57 → Y3N 14:17
PROVIDERS: ADMIT Internal Medicine; ATTEND Internal Medicine
PROC: HZ2ZZZZ Detoxification Services for Substance Abuse Treatment (ICD-10-PCS; principal; 2017-10-08)
DX: F11.23 Opioid dependence with withdrawal (principal); F14.20 Cocaine dependence, uncomplicated; F17.213 Nicotine dependence, cigarettes, with withdrawal; F51.05 Insomnia due to other mental disorder; F19.24 Other psychoactive substance dependence with psychoactive substance-induced mood disorder; H54.42A3 Blindness left eye category 3, normal vision right eye
CPT/HCPCS: 36415; 71046-TC-FY; 80053; 81003; 81015; 84132; 85027; 86593; 87389

== ENCOUNTER 2018-02-14 13:07 | Inpatient (IN) | payer OTHER ==
[2018-02-14 13:58] VITALS: BMI 20.6
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
[2018-02-14] MEDS ORDERED: MENTHOL/PHENOL 1 EACH UD MM PRN (14:55)
[2018-02-14] MEDS ORDERED: MAGNESIUM CITRATE 300 ML BOTTLE PO PRN (14:55)
[2018-02-14] MEDS ORDERED: MAGNESIUM HYDROX 2400MG/30ML ORAL SUSPENSION 30 ML CUP PO PRN (14:55)
[2018-02-14] MEDS ORDERED: IBUPROFEN 400 MG TABLET (FP) PO PRN (14:55)
[2018-02-14] MEDS ORDERED: guaiFENesin/D-METHORPHAN HB 10 ML UNIT-DOSE CUPS PO PRN (14:55)
[2018-02-14] MEDS ORDERED: ACETAMINOPHEN 325 MG TABLET (FP) PO PRN (14:55)
[2018-02-14] MEDS ORDERED: hydrOXYzine PAMOATE 25 MG CAPSULE (FP) PO PRN (14:55)
[2018-02-14] MEDS ORDERED: MAG HYDROX/AL HYDROX/SIMETH 30 ML UNIT-DOSE CUP PO PRN (14:55)
[2018-02-14] MEDS ORDERED: LOPERAMIDE HCL 2 MG CAPSULE PO PRN (14:55)
[2018-02-14] MEDS ORDERED: P-EPHED 60MG/TRIPROLIDI 2.5MG TABLET PO PRN (14:55)
[2018-02-14] MEDS ORDERED: METHADONE HCL 10 MG TABLET (FOR DETOX USE ONLY) PO ONE ×2 (14:55→23:00)
[2018-02-14] MEDS ORDERED: METHADONE HCL 10 MG TABLET (FOR DETOX USE ONLY) ONE (19:41)
[2018-02-14] MEDS: diazePAM 5 MG TABLET PO PRN ×2 (19:42→22:54)
[2018-02-14] MEDS ORDERED: MELATONIN 5 MG TABLETS PO PRN (22:00)
[2018-02-14] MEDS: THIAMINE HCL 100 MG TABLET (FP) PO SCH (22:53)
[2018-02-15] MEDS ORDERED: METHADONE HCL 10 MG TABLET (FOR DETOX USE ONLY) PO ONE (10:00)
[2018-02-15] MEDS: PRENATAL VITAMINS W/ FOLIC ACID TABLET (FP) PO SCH (10:25)
[2018-02-15 10:52] LABS: HEMATOCRIT 35.2 % (35.4-49); HEMOGLOBIN 11.9 GM/dL (11.7-16.9); MCH 28.4 pg (25.7-33.7); MCHC 33.7 g/dl (32.0-35.9); MEAN PLT VOLUME 8.1 fl (7.5-11.1); PLATELET COUNT 183 K/MM3 (134-434); RBC 4.19 M/mm3 (4.00-5.60); WHITE BLOOD COUNT 4.1 K/mm3 (4.0-10.0)
[2018-02-15 11:04] LABS: ALBUMIN 2.7 g/dl (3.4-5.0); ALK PHOS 134 U/L (45-117); ANION GAP 9 MMOL/L (8-16); BILIRUBIN,TOTAL 0.3 mg/dL (0.2-1.0); BLOOD UREA NITROGEN 16 mg/dL (7-18); CALCIUM 8.4 mg/dL (8.5-10.1); CHLORIDE 107 mmol/L (98-107); CO2 26 mmol/L (21-32); CREATININE 0.7 mg/dL (0.7-1.3); GLUCOSE,RANDOM 87 mg/dL (74-106); SGOT/AST 38 U/L (15-37); SGPT/ALT 50 U/L (12-78); SODIUM 142 mmol/L (136-145); TOT PROT 7.2 g/dl (6.4-8.2)
[2018-02-15 11:33] LABS: URINE APPEARANCE SLCLOUDY; URINE BILIRUBIN NEGATIVE (<2.0 mg/dL); URINE COLOR YELLOW; URINE GLUCOSE (UA) NEGATIVE (NEGATIVE); URINE KETONE NEGATIVE (NEGATIVE); URINE LEUK ESTERASE NEGATIVE (NEGATIVE); URINE NITRITE NEGATIVE (NEGATIVE); URINE PROTEIN NEGATIVE (NEGATIVE); URINE UROBILINOGEN 4.0 E.U/dl mg/dL (0.2-1.0)
[2018-02-15] MEDS: diazePAM 5 MG TABLET PO PRN ×2 (14:38→22:39)
--- NOTE | 2018-02-15 14:39 | PN ---
BHS COWS - Scale Resting Pulse: 0= [place] 80 or Below Sweatin= Chills/Flushing Restless Observation: 3= Extraneous Movement Pupil Size: 1= Pupils >than Normal Bone or Joint Aches: 2= Severe Diffuse Aches Runny Nose/ Eye Tearin= Runny Nose/Eyes GI Upset > 30mins: 2= Nausea/Diarrhea Tremor Observation of Outstretched Hands: 2= Slight Tremor Visible Yawning Observation: 1= 1-2x During Session Anxiety or Irritability: 2=Irritable/Anxious Goose Flesh Skin: 0=Smooth Skin COWS Score: 16 BHS Progress Note (SOAP) Subjective: Stomach cramps, sweating, interrupted sleep, anxious Objective: 02/15/18 14:38 Last Vital Signs Temp Pulse Resp BP Pulse Ox 96.1 F L 75 18 97/69 02/15/18 13:12 02/15/18 13:12 02/15/18 13:12 02/15/18 13:12 Laboratory Tests 02/15/18 02/15/18 02/15/18 08:00 08:00 08:00 WBC 4.1 RBC 4.19 Hgb 11.9 Hct 35.2 L MCV 84.0 MCH 28.4 MCHC 33.7 RDW 15.0 D Plt Count 183 MPV 8.1 Sodium 142 Potassium 4.0 Chloride 107 Carbon Dioxide 26 Anion Gap 9 BUN 16 Creatinine 0.7 Creat Clearance w eGFR > 60 Random Glucose 87 Calcium 8.4 L Total Bilirubin 0.3 AST 38 H D ALT 50 D Alkaline Phosphatase 134 H Total Protein 7.2 Albumin 2.7 L Urine Color Urine Appearance Urine pH Ur Specific [place] Urine Protein Urine Glucose (UA) Urine Ketones Urine Blood Urine Nitrite Urine Bilirubin Urine Urobilinogen Ur Leukocyte Esterase RPR Titer Nonreactive HIV 1&2 Antibody Screen HIV P24 Antigen 02/15/18 02/15/18 09:00 09:30 WBC RBC Hgb Hct MCV MCH MCHC RDW Plt Count MPV Sodium Potassium Chloride Carbon Dioxide Anion Gap BUN Creatinine Creat Clearance w eGFR Random Glucose Calcium Total Bilirubin AST ALT Alkaline Phosphatase Total Protein Albumin Urine Color Yellow Urine Appearance Slcloudy Urine pH 6.0 Ur Specific [place] 1.019 Urine Protein Negative Urine Glucose (UA) Negative Urine Ketones Negative Urine Blood Negative Urine Nitrite Negative Urine Bilirubin Negative Urine Urobilinogen 4.0 e.u/dl Ur Leukocyte Esterase Negative RPR Titer HIV 1&2 Antibody Screen Negative HIV P24 Antigen Negative Labs reviewed Assessment: 02/15/18 14:39 Withdrawal symptoms Plan: Continue detox Encouraged PO water hydration
[2018-02-15] MEDS: THIAMINE HCL 100 MG TABLET (FP) PO SCH (22:39)
[2018-02-16] MEDS: diazePAM 5 MG TABLET PO PRN ×4 (06:32→22:19)
[2018-02-16] MEDS ORDERED: METHADONE HCL 5 MG TABLET (FOR DETOX USE ONLY) PO ONE (10:00)
[2018-02-16] MEDS: PRENATAL VITAMINS W/ FOLIC ACID TABLET (FP) PO SCH (10:40)
--- NOTE | 2018-02-16 11:24 | EKG ---
Test Reason : Blood Pressure : / mmHG Vent. Rate : 066 BPM Atrial Rate : 066 BPM P-R Int : 166 ms QRS Dur : 092 ms QT Int : 414 ms P-R-T Axes : 074 049 057 degrees QTc Int : 434 ms NORMAL SINUS RHYTHM NORMAL ECG WHEN COMPARED WITH ECG OF 14-JUN-2016 17:59, NO SIGNIFICANT CHANGE WAS FOUND Confirmed by SP MELVIN MD ([id number]) on 02/16/2018 11:24:01 AM Referred By: Confirmed By:SP MELVIN MD
--- NOTE | 2018-02-16 12:43 | PN ---
BHS COWS - Scale Resting Pulse: 0= [place] 80 or Below Sweatin= Chills/Flushing Restless Observation: 3= Extraneous Movement Pupil Size: 2= Moderately Dilated Bone or Joint Aches: 4=Acute Joint/Muscle Pain Runny Nose/ Eye Tearin= None GI Upset > 30mins: 0= None Tremor Observation of Outstretched Hands: 2= Slight Tremor Visible Yawning Observation: 1= 1-2x During Session Anxiety or Irritability: 2=Irritable/Anxious Goose Flesh Skin: 0=Smooth Skin COWS Score: 15 BHS Progress Note (SOAP) Subjective: ANXIETY,SWEATS,CHILLS,MUSCLE ACHES. Objective: 02/16/18 12:42 Vital Signs 02/16/18 02/16/18 02/16/18 06:15 06:30 10:49 Temperature 97 F L 98.6 F Pulse Rate 64 74 Respiratory 18 18 20 Rate Blood Pressure 91/58 100/62 Laboratory Tests 02/15/18 02/15/18 02/15/18 08:00 08:00 08:00 WBC 4.1 RBC 4.19 Hgb 11.9 Hct 35.2 L MCV 84.0 MCH 28.4 MCHC 33.7 RDW 15.0 D Plt Count 183 MPV 8.1 Sodium 142 Potassium 4.0 Chloride 107 Carbon Dioxide 26 Anion Gap 9 BUN 16 Creatinine 0.7 Creat Clearance w eGFR > 60 Random Glucose 87 Calcium 8.4 L Total Bilirubin 0.3 AST 38 H D ALT 50 D Alkaline Phosphatase 134 H Total Protein 7.2 Albumin 2.7 L Urine Color Urine Appearance Urine pH Ur Specific [place] Urine Protein Urine Glucose (UA) Urine Ketones Urine Blood Urine Nitrite Urine Bilirubin Urine Urobilinogen Ur Leukocyte Esterase RPR Titer Nonreactive HIV 1&2 Antibody Screen HIV P24 Antigen 02/15/18 02/15/18 09:00 09:30 WBC RBC Hgb Hct MCV MCH MCHC RDW Plt Count MPV Sodium Potassium Chloride Carbon Dioxide Anion Gap BUN Creatinine Creat Clearance w eGFR Random Glucose Calcium Total Bilirubin AST ALT Alkaline Phosphatase Total Protein Albumin Urine Color Yellow Urine Appearance Slcloudy Urine pH 6.0 Ur Specific [place] 1.019 Urine Protein Negative Urine Glucose (UA) Negative Urine Ketones Negative Urine Blood Negative Urine Nitrite Negative Urine Bilirubin Negative Urine Urobilinogen 4.0 e.u/dl Ur Leukocyte Esterase Negative RPR Titer HIV 1&2 Antibody Screen Negative HIV P24 Antigen Negative Assessment: 02/16/18 12:42 WITHDRAWAL SX Plan: CONTINUE DETOX
[2018-02-16] MEDS: NICOTINE POLACRILEX 4 MG GUM BC PRN (17:42)
[2018-02-16] MEDS: THIAMINE HCL 100 MG TABLET (FP) PO SCH (22:19)
[2018-02-17] MEDS ORDERED: METHADONE HCL 5 MG TABLET (FOR DETOX USE ONLY) PO ONE (10:00)
[2018-02-17] MEDS: PRENATAL VITAMINS W/ FOLIC ACID TABLET (FP) PO SCH (10:34)
[2018-02-17] MEDS: diazePAM 5 MG TABLET PO PRN (10:34)
--- NOTE | 2018-02-17 12:38 | PN ---
BHS Progress Note (SOAP) Subjective: SLIGHT ANXIETY,SWEATS, FATIGUE. OOB WITH STEADY GAIT. REPORTS DETOX TAPER PROCEEDING WELL. Objective: 02/17/18 12:38 Vital Signs - 24 hr 02/16/18 02/16/18 02/16/18 14:22 18:06 22:00 Temperature 96.1 F L 97.8 F 97.3 F L Pulse Rate 83 97 H 92 H Respiratory 16 18 18 Rate Blood Pressure 107/74 97/63 102/71 02/17/18 02/17/18 02/17/18 00:30 04:56 06:31 Temperature 97.9 F Pulse Rate 67 Respiratory 18 18 18 Rate Blood Pressure 100/63 02/17/18 10:30 Temperature 96.8 F L Pulse Rate 74 Respiratory 18 Rate Blood Pressure 102/61 Laboratory Tests 02/15/18 02/15/18 02/15/18 08:00 08:00 08:00 WBC 4.1 RBC 4.19 Hgb 11.9 Hct 35.2 L MCV 84.0 MCH 28.4 MCHC 33.7 RDW 15.0 D Plt Count 183 MPV 8.1 Sodium 142 Potassium 4.0 Chloride 107 Carbon Dioxide 26 Anion Gap 9 BUN 16 Creatinine 0.7 Creat Clearance w eGFR > 60 Random Glucose 87 Calcium 8.4 L Total Bilirubin 0.3 AST 38 H D ALT 50 D Alkaline Phosphatase 134 H Total Protein 7.2 Albumin 2.7 L Urine Color Urine Appearance Urine pH Ur Specific [place] Urine Protein Urine Glucose (UA) Urine Ketones Urine Blood Urine Nitrite Urine Bilirubin Urine Urobilinogen Ur Leukocyte Esterase RPR Titer Nonreactive HIV 1&2 Antibody Screen HIV P24 Antigen 02/15/18 02/15/18 09:00 09:30 WBC RBC Hgb Hct MCV MCH MCHC RDW Plt Count MPV Sodium Potassium Chloride Carbon Dioxide Anion Gap BUN Creatinine Creat Clearance w eGFR Random Glucose Calcium Total Bilirubin AST ALT Alkaline Phosphatase Total Protein Albumin Urine Color Yellow Urine Appearance Slcloudy Urine pH 6.0 Ur Specific [place] 1.019 Urine Protein Negative Urine Glucose (UA) Negative Urine Ketones Negative Urine Blood Negative Urine Nitrite Negative Urine Bilirubin Negative Urine Urobilinogen 4.0 e.u/dl Ur Leukocyte Esterase Negative RPR Titer HIV 1&2 Antibody Screen Negative HIV P24 Antigen Negative Assessment: 02/17/18 12:39 WITHDRAWAL SX Plan: CONTINUE DETOX INCREASE PO FLUIDS.
[2018-02-17] MEDS: THIAMINE HCL 100 MG TABLET (FP) PO SCH (22:01)
[2018-02-18] MEDS ORDERED: METHADONE HCL 10 MG TABLET (FOR DETOX USE ONLY) PO ONE (10:00)
[2018-02-18] MEDS: PRENATAL VITAMINS W/ FOLIC ACID TABLET (FP) PO SCH (10:26)
[2018-02-18] MEDS: NICOTINE POLACRILEX 4 MG GUM BC PRN ×2 (10:27→17:37)
--- NOTE | 2018-02-18 14:29 | PN ---
BHS Progress Note (SOAP) Subjective: DETOX PROCEEDING WELL-DECREASED ANXIETY, IRRITABILITY, FATIGUE. OOB. NAD. Objective: 02/18/18 14:29 Vital Signs 02/18/18 02/18/18 02/18/18 06:36 10:49 13:46 Temperature 98.1 F 98.2 F Pulse Rate 77 57 L Respiratory 18 18 18 Rate Blood Pressure 98/64 91/55 Laboratory Tests 02/15/18 02/15/18 02/15/18 08:00 08:00 08:00 WBC 4.1 RBC 4.19 Hgb 11.9 Hct 35.2 L MCV 84.0 MCH 28.4 MCHC 33.7 RDW 15.0 D Plt Count 183 MPV 8.1 Sodium 142 Potassium 4.0 Chloride 107 Carbon Dioxide 26 Anion Gap 9 BUN 16 Creatinine 0.7 Creat Clearance w eGFR > 60 Random Glucose 87 Calcium 8.4 L Total Bilirubin 0.3 AST 38 H D ALT 50 D Alkaline Phosphatase 134 H Total Protein 7.2 Albumin 2.7 L Urine Color Urine Appearance Urine pH Ur Specific [place] Urine Protein Urine Glucose (UA) Urine Ketones Urine Blood Urine Nitrite Urine Bilirubin Urine Urobilinogen Ur Leukocyte Esterase RPR Titer Nonreactive HIV 1&2 Antibody Screen HIV P24 Antigen 02/15/18 02/15/18 09:00 09:30 WBC RBC Hgb Hct MCV MCH MCHC RDW Plt Count MPV Sodium Potassium Chloride Carbon Dioxide Anion Gap BUN Creatinine Creat Clearance w eGFR Random Glucose Calcium Total Bilirubin AST ALT Alkaline Phosphatase Total Protein Albumin Urine Color Yellow Urine Appearance Slcloudy Urine pH 6.0 Ur Specific [place] 1.019 Urine Protein Negative Urine Glucose (UA) Negative Urine Ketones Negative Urine Blood Negative Urine Nitrite Negative Urine Bilirubin Negative Urine Urobilinogen 4.0 e.u/dl Ur Leukocyte Esterase Negative RPR Titer HIV 1&2 Antibody Screen Negative HIV P24 Antigen Negative Assessment: 02/18/18 14:29 WITHDRAWAL SX Plan: CONTINUE DETOX
[2018-02-18] MEDS: THIAMINE HCL 100 MG TABLET (FP) PO SCH (22:04)
[2018-02-19] MEDS ORDERED: METHADONE HCL 5 MG TABLET (FOR DETOX USE ONLY) PO ONE (06:00)
[2018-02-19 06:22] VITALS: BP 100/54; PULSE 66; TEMP 97
--- NOTE | 2018-02-19 11:20 | DS ---
[facility] Detox Discharge Summary Admission Date: 02/14/18 - History Present History: Alcohol Dependence - Physical Exam Results Vital Signs: Vital Signs Temperature 97.0 F L 02/19/18 06:21 Pulse Rate 66 02/19/18 06:21 Respiratory Rate 02/19/18 07:12 Blood Pressure 100/54 02/19/18 06:21 O2 Sat by Pulse Oximetry (%) - Treatment Hospital Course: Detox Protocol Followed, Detoxed Safely, Responded well, Discharged Condition Good - Medication Discharge Medications: Ambulatory Orders NK [No Known Home Medication] 10/08/17 - AMA Did Patient Leave Against Medical Advice: No
== END 2018-02-19 08:56 | disposition home or self-care (01) | DRG 897 ==
LOC: YASAS 13:07 → Y3N 17:19
PROC: HZ2ZZZZ Detoxification Services for Substance Abuse Treatment (ICD-10-PCS; principal; 2018-02-14)
DX: F11.23 Opioid dependence with withdrawal (principal); F14.20 Cocaine dependence, uncomplicated; F17.213 Nicotine dependence, cigarettes, with withdrawal; F41.8 Other specified anxiety disorders; H54.62 Unqualified visual loss, left eye, normal vision right eye; R63.6 Underweight; Z68.20 Body mass index [BMI] 20.0-20.9, adult; R76.11 Nonspecific reaction to tuberculin skin test without active tuberculosis
CPT/HCPCS: 36415; 80053; 81003; 85027; 86593; 87389; 93005; 93010

== ENCOUNTER 2018-03-23 14:35 | Inpatient (IN) | payer OTHER ==
[2018-03-23 16:20] VITALS: BMI 20.9
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
[2018-03-23] MEDS ORDERED: LOPERAMIDE HCL 2 MG CAPSULE PO PRN (17:24)
[2018-03-23] MEDS ORDERED: MAGNESIUM HYDROX 2400MG/30ML ORAL SUSPENSION 30 ML CUP PO PRN (17:24)
[2018-03-23] MEDS ORDERED: IBUPROFEN 400 MG TABLET (FP) PO PRN (17:24)
[2018-03-23] MEDS ORDERED: MAG HYDROX/AL HYDROX/SIMETH 30 ML UNIT-DOSE CUP PO PRN (17:24)
[2018-03-23] MEDS ORDERED: P-EPHED 60MG/TRIPROLIDI 2.5MG TABLET PO PRN (17:24)
[2018-03-23] MEDS ORDERED: guaiFENesin/D-METHORPHAN HB 10 ML UNIT-DOSE CUPS PO PRN (17:24)
[2018-03-23] MEDS ORDERED: MENTHOL/PHENOL 1 EACH UD MM PRN (17:24)
[2018-03-23] MEDS ORDERED: NICOTINE POLACRILEX 2 MG GUM BC PRN (17:24)
[2018-03-23] MEDS ORDERED: ACETAMINOPHEN 325 MG TABLET (FP) PO PRN (17:24)
[2018-03-23] MEDS ORDERED: MAGNESIUM CITRATE 300 ML BOTTLE PO PRN (17:24)
[2018-03-23] MEDS ORDERED: METHADONE HCL 10 MG TABLET (FOR DETOX USE ONLY) PO ONE ×2 (18:15→23:00)
[2018-03-23] MEDS: chlordiazePOXIDE HCL 25 MG CAPSULE PO PRN (19:16)
[2018-03-23 22:14] LABS: URINE APPEARANCE CLOUDY; URINE BILIRUBIN NEGATIVE (<2.0 mg/dL); URINE COLOR YELLOW; URINE GLUCOSE (UA) NEGATIVE (NEGATIVE); URINE KETONE NEGATIVE (NEGATIVE); URINE LEUK ESTERASE NEGATIVE (NEGATIVE); URINE NITRITE NEGATIVE (NEGATIVE); URINE PROTEIN NEGATIVE (NEGATIVE); URINE UROBILINOGEN NEGATIVE mg/dL (0.2-1.0)
[2018-03-23] MEDS: chlordiazePOXIDE HCL 25 MG CAPSULE PO SCH (22:54)
[2018-03-23] MEDS: THIAMINE HCL 100 MG TABLET (FP) PO SCH (22:54)
[2018-03-23 23:24] LABS: CALCIUM OXALATE CRYSTALS MODERATE /hpf (NONE SEEN); EPI CELLS RARE /HPF (FEW); URINE MUCUS MODERATE
[2018-03-24] MEDS: chlordiazePOXIDE HCL 25 MG CAPSULE PO SCH ×4 (05:23→22:08)
[2018-03-24] MEDS ORDERED: METHADONE HCL 10 MG TABLET (FOR DETOX USE ONLY) PO SCH (10:00)
[2018-03-24 10:11] LABS: HEMATOCRIT 41.9 % (35.4-49); HEMOGLOBIN 14.6 GM/dL (11.7-16.9); MCH 29.9 pg (25.7-33.7); MCHC 34.8 g/dl (32.0-35.9); MEAN CELL VOLUME 85.8 fl (80-96); MEAN PLT VOLUME 8.4 fl (7.5-11.1); PLATELET COUNT 168 K/MM3 (134-434); RBC 4.88 M/mm3 (4.00-5.60); RDW 14.8 % (11.9-15.9); WHITE BLOOD COUNT 5.1 K/mm3 (4.0-10.0)
[2018-03-24] MEDS: PRENATAL VITAMINS W/ FOLIC ACID TABLET (FP) PO SCH (10:20)
[2018-03-24] MEDS: NICOTINE 14 MG/24 HOURS TOPICAL PATCH TD SCH (10:20)
[2018-03-24 10:26] LABS: ALBUMIN 3.6 g/dl (3.4-5.0); ALK PHOS 131 U/L (45-117); ANION GAP 8 MMOL/L (8-16); BILIRUBIN,TOTAL 0.8 mg/dL (0.2-1); BLOOD UREA NITROGEN 11 mg/dL (7-18); CALCIUM 9.9 mg/dL (8.5-10.1); CHLORIDE 106 mmol/L (98-107); CO2 28 mmol/L (21-32); CREATININE 0.8 mg/dL (0.55-1.3); GLUCOSE,RANDOM 80 mg/dL (74-106); POTASSIUM 4.5 mmol/L (3.5-5.1); SGOT/AST 55 U/L (15-37); SGPT/ALT 96 U/L (13-61); SODIUM 142 mmol/L (136-145); TOT PROT 8.4 g/dl (6.4-8.2)
[2018-03-24] MEDS ORDERED: FLU VACCINE QUAD 60 MCG/0.5 ML (MDV 18-19) IM ONE (12:00)
--- NOTE | 2018-03-24 12:43 | PN ---
[facility] CIWA - CIWA Score Nausea/Vomitin Muscle Tremors: 4-Moderate,w/Arms Extend Anxiety: 4-Mod. Anxious/Guarded Agitation: 4-Moderately Restless Paroxysmal Sweats: 3 Orientation: 0-Oriented Tacttile Disturbances: 1-Very Mild Itch/Numbness Auditory Disturbances: 0-None Visual Disturbances: 0-None Headache: 0-None Present CIWA-Ar Total Score: 18 BHS COWS - Scale Resting Pulse: 1= [place] 81-100 Sweatin= Chills/Flushing Restless Observation: 3= Extraneous Movement Pupil Size: 1= Pupils >than Normal Bone or Joint Aches: 1= Mild Discomfort Runny Nose/ Eye Tearin= Runny Nose/Eyes GI Upset > 30mins: 2= Nausea/Diarrhea Tremor Observation of Outstretched Hands: 2= Slight Tremor Visible Yawning Observation: 1= 1-2x During Session Anxiety or Irritability: 2=Irritable/Anxious Goose Flesh Skin: 0=Smooth Skin COWS Score: 16 S Progress Note (SOAP) Subjective: Yawning, watery eyes, chills Objective: 03/24/18 12:39 Last Vital Signs Temp Pulse Resp BP Pulse Ox 97.8 F 83 16 103/66 03/24/18 10:08 03/24/18 10:08 03/24/18 10:08 03/24/18 10:08 Laboratory Tests 03/23/18 03/24/18 03/24/18 20:48 07:00 07:00 WBC 5.1 RBC 4.88 Hgb 14.6 Hct 41.9 D MCV 85.8 MCH 29.9 MCHC 34.8 RDW 14.8 Plt Count 168 MPV 8.4 Sodium Potassium Chloride Carbon Dioxide Anion Gap BUN Creatinine Creat Clearance w eGFR Random Glucose Calcium Total Bilirubin AST ALT Alkaline Phosphatase Total Protein Albumin Urine Color Yellow Urine Appearance Cloudy Urine pH 6.0 Ur Specific [place] 1.017 Urine Protein Negative Urine Glucose (UA) Negative Urine Ketones Negative Urine Blood 1+ H Urine Nitrite Negative Urine Bilirubin Negative Urine Urobilinogen Negative Ur Leukocyte Esterase Negative Urine WBC (Auto) None Urine RBC (Auto) 8 Ur Epithelial Cells Rare Calcium Oxalate Crystal Moderate Urine Mucus Moderate RPR Titer HIV 1&2 Antibody Screen Negative HIV P24 Antigen Negative 10/16/18 10/16/18 07:00 07:00 WBC RBC Hgb Hct MCV MCH MCHC RDW Plt Count MPV Sodium 142 Potassium 4.5 Chloride 106 Carbon Dioxide 28 Anion Gap 8 BUN 11 Creatinine 0.8 Creat Clearance w eGFR > 60 Random Glucose 80 Calcium 9.9 Total Bilirubin 0.8 AST 55 H ALT 96 H Alkaline Phosphatase 131 H Total Protein 8.4 H Albumin 3.6 Urine Color Urine Appearance Urine pH Ur Specific [place] Urine Protein Urine Glucose (UA) Urine Ketones Urine Blood Urine Nitrite Urine Bilirubin Urine Urobilinogen Ur Leukocyte Esterase Urine WBC (Auto) Urine RBC (Auto) Ur Epithelial Cells Calcium Oxalate Crystal Urine Mucus RPR Titer Nonreactive HIV 1&2 Antibody Screen HIV P24 Antigen Labs reviewed: abnormal UA Assessment: 03/24/18 12:40 Withdrawal symptoms Noted with abnormal UA Plan: Continue detox Abnormal UA: encouraged PO water intake, repeat UA
--- NOTE | 2018-03-24 13:17 | EKG ---
Test Reason : Blood Pressure : / mmHG Vent. Rate : 077 BPM Atrial Rate : 077 BPM P-R Int : 166 ms QRS Dur : 092 ms QT Int : 364 ms P-R-T Axes : 078 062 070 degrees QTc Int : 411 ms NORMAL SINUS RHYTHM NORMAL ECG WHEN COMPARED WITH ECG OF 14-FEB-2018 18:34, NO SIGNIFICANT CHANGE WAS FOUND Confirmed by MD GUILLEN PENG ([id number]) on 03/24/2018 1:17:25 PM Referred By: Confirmed By:ROCKY GUILLEN MD
--- NOTE | 2018-03-24 13:44 | CONSULT ---
[facility] Psychiatric Consult - Data Date of interview: 03/24/18 Admission source: [facility] Identifying data: Re-admisssion to [facility] for this 58 y/o male seeking detox treatment on for heroin and cocaine dependence.Patient is single,a father of one,undomiciled, unemployed and supported on [facility] benefits. Substance Abuse History: Confirmed by the patient in this interview. Details in current [facility] report : Smoking history: Current every day smoker. Have you smoked in the past 12 months: Yes. Aproximately how many cigarettes per day: 10. Cigars Per Day: 0. Hx Chewing Tobacco Use: No. Initiated information on smoking cessation: Yes. 'Breaking Loose' booklet given: 03/23/18. - Substance & Tx. History. Hx Alcohol Use: Yes. Hx Substance Use: Yes. Substance Use Type : Alcohol, Cocaine, Opiates. Hx Substance Use Treatment: Yes (ast detox [facility] 02/14/18 - 02/19/18). - Substances Abused. Heroin. Route: Injection. Frequency : Daily. Amount used: 6-12 BAGS. Age of first use: 32. Date of Last Use: . Alcohol. Route: Oral. Frequency: Daily. Amount used: 1/2 [place]. Age of first use: 17. Date of Last Use: 03/22/18. Crack. Route: Smoking. Frequency: Daily. Amount used: $40. Age of first use: 52. Date of Last Use: 03/22/18 Medical History: Hearing impediment,hepatitis C and left eye blindness ( traumatic injury in 1998). Psychiatric History: Patient denies history of psychiatric hospitalizations,OPD care or suicide attempts. Physical/Sexual Abuse/Trauma History: Patient denies. Additional Comment: Urine Drug Screen Results: DOMINICK-Cocaine, OPI-Opiates.Noted. Mental Status Exam - Mental Status Exam Alert and Oriented to: Time, Place, Person Cognitive Function: Good Patient Appearance: Well Groomed Mood: Withdrawn, Hopeful Affect: Appropriate, Normal Range Patient Behavior: Fatigued, Cooperative Speech Pattern: Clear, Appropriate Voice Loudness: Normal Thought Process: Intact, Goal Oriented Thought Disorder: Not Present Hallucinations: Denies Suicidal Ideation: Denies Homicidal Ideation: Denies Insight/Judgement: Poor Sleep: Poorly, Difficulty falling asleep Muscle strength/Tone: Normal Gait/Station: Normal Psychiatric Findings - Problem List ([place] 1, 2,3) (1) Opioid dependence with withdrawal Current Visit: Yes Status: Acute (2) Alcohol dependence with uncomplicated withdrawal Current Visit: Yes Status: Acute (3) Cocaine dependence Current Visit: Yes Status: Acute Qualifiers: Substance use status: uncomplicated Qualified Code(s): F14.20 - Cocaine dependence, uncomplicated (4) Nicotine dependence Current Visit: Yes Status: Acute Qualifiers: Nicotine product type: cigarettes Substance use status: in withdrawal Qualified Code(s): F17.213 - Nicotine dependence, cigarettes, with withdrawal (5) Insomnia Current Visit: Yes Status: Acute - Initial Treatment Plan Initial Treatment Plan: Psychoeducation.Sleep hygiene.Detoxification in progress.Insomnia is addressed with melatoinin at bedtime.Patient is in agreement with this careplan.Observation.
[2018-03-24] MEDS: MELATONIN 5 MG TABLETS PO PRN (22:08)
[2018-03-24] MEDS: THIAMINE HCL 100 MG TABLET (FP) PO SCH (22:08)
[2018-03-25] MEDS: chlordiazePOXIDE HCL 25 MG CAPSULE PO PRN (01:06)
[2018-03-25] MEDS: chlordiazePOXIDE HCL 25 MG CAPSULE PO SCH ×3 (05:47→17:53)
[2018-03-25] MEDS: PRENATAL VITAMINS W/ FOLIC ACID TABLET (FP) PO SCH (10:13)
[2018-03-25] MEDS: METHADONE HCL 5 MG TABLET (FOR DETOX USE ONLY) PO SCH (10:13)
[2018-03-25] MEDS: NICOTINE 14 MG/24 HOURS TOPICAL PATCH TD SCH (10:14)
--- NOTE | 2018-03-25 13:52 | PN ---
[facility] CIWA - CIWA Score Nausea/Vomitin-Mild Nausea/No Vomiting Muscle Tremors: 3 Anxiety: 3 Agitation: 3 Paroxysmal Sweats: 3 Orientation: 0-Oriented Tacttile Disturbances: 0-None Auditory Disturbances: 0-None Visual Disturbances: 0-None Headache: 0-None Present CIWA-Ar Total Score: 13 BHS COWS - Scale Resting Pulse: 0= [place] 80 or Below Sweatin= Chills/Flushing Restless Observation: 3= Extraneous Movement Pupil Size: 0= Normal to Room Light Bone or Joint Aches: 2= Severe Diffuse Aches Runny Nose/ Eye Tearin= Runny Nose/Eyes GI Upset > 30mins: 2= Nausea/Diarrhea Tremor Observation of Outstretched Hands: 2= Slight Tremor Visible Yawning Observation: 0= None Anxiety or Irritability: 2=Irritable/Anxious Goose Flesh Skin: 0=Smooth Skin COWS Score: 14 BHS Progress Note (SOAP) Subjective: Interrupted sleep, anxious Objective: 03/25/18 13:52 Last Vital Signs Temp Pulse Resp BP Pulse Ox 96.6 F L 73 18 92/54 L 03/25/18 10:55 03/25/18 10:55 03/25/18 10:55 03/25/18 10:55 Hypotension noted Laboratory Tests 03/23/18 03/24/18 03/24/18 20:48 07:00 07:00 WBC 5.1 RBC 4.88 Hgb 14.6 Hct 41.9 D MCV 85.8 MCH 29.9 MCHC 34.8 RDW 14.8 Plt Count 168 MPV 8.4 Sodium Potassium Chloride Carbon Dioxide Anion Gap BUN Creatinine Creat Clearance w eGFR Random Glucose Calcium Total Bilirubin AST ALT Alkaline Phosphatase Total Protein Albumin Urine Color Yellow Urine Appearance Cloudy Urine pH 6.0 Ur Specific [place] 1.017 Urine Protein Negative Urine Glucose (UA) Negative Urine Ketones Negative Urine Blood 1+ H Urine Nitrite Negative Urine Bilirubin Negative Urine Urobilinogen Negative Ur Leukocyte Esterase Negative Urine WBC (Auto) None Urine RBC (Auto) 8 Ur Epithelial Cells Rare Calcium Oxalate Crystal Moderate Urine Mucus Moderate RPR Titer HIV 1&2 Antibody Screen Negative HIV P24 Antigen Negative 03/24/18 03/24/18 07:00 07:00 WBC RBC Hgb Hct MCV MCH MCHC RDW Plt Count MPV Sodium 142 Potassium 4.5 Chloride 106 Carbon Dioxide 28 Anion Gap 8 BUN 11 Creatinine 0.8 Creat Clearance w eGFR > 60 Random Glucose 80 Calcium 9.9 Total Bilirubin 0.8 AST 55 H ALT 96 H Alkaline Phosphatase 131 H Total Protein 8.4 H Albumin 3.6 Urine Color Urine Appearance Urine pH Ur Specific [place] Urine Protein Urine Glucose (UA) Urine Ketones Urine Blood Urine Nitrite Urine Bilirubin Urine Urobilinogen Ur Leukocyte Esterase Urine WBC (Auto) Urine RBC (Auto) Ur Epithelial Cells Calcium Oxalate Crystal Urine Mucus RPR Titer Nonreactive HIV 1&2 Antibody Screen HIV P24 Antigen Labs reviewed: abnormal UA Assessment: 03/25/18 13:54 Withdrawal symptoms Noted with hypotension and abnormal UA Plan: Continue detox Hypotension: asympotomatic, encouraged to drink more water Abnormal UA: encouraged PO water intake, repeat UA
[2018-03-25 15:58] LABS: URINE APPEARANCE CLEAR; URINE BILIRUBIN NEGATIVE (<2.0 mg/dL); URINE COLOR LTYELLOW; URINE GLUCOSE (UA) NEGATIVE (NEGATIVE); URINE KETONE NEGATIVE (NEGATIVE); URINE LEUK ESTERASE NEGATIVE (NEGATIVE); URINE NITRITE NEGATIVE (NEGATIVE); URINE PROTEIN NEGATIVE (NEGATIVE); URINE UROBILINOGEN NEGATIVE mg/dL (0.2-1.0)
[2018-03-25] MEDS: chlordiazePOXIDE 5 MG CAPSULE PO SCH (22:07)
[2018-03-25] MEDS: THIAMINE HCL 100 MG TABLET (FP) PO SCH (22:07)
[2018-03-25] MEDS: MELATONIN 5 MG TABLETS PO PRN (22:07)
[2018-03-26] MEDS: chlordiazePOXIDE 5 MG CAPSULE PO SCH ×3 (06:11→17:20)
[2018-03-26] MEDS: PRENATAL VITAMINS W/ FOLIC ACID TABLET (FP) PO SCH (10:25)
[2018-03-26] MEDS: METHADONE HCL 5 MG TABLET (FOR DETOX USE ONLY) PO SCH (10:25)
[2018-03-26] MEDS: NICOTINE 14 MG/24 HOURS TOPICAL PATCH TD SCH (10:26)
--- NOTE | 2018-03-26 13:06 | PN ---
BHS Progress Note (SOAP) Subjective: Back pain Objective: 03/26/18 13:04 Last Vital Signs Temp Pulse Resp BP Pulse Ox 97.9 F 70 18 96/82 03/26/18 10:30 03/26/18 10:30 03/26/18 10:30 03/26/18 10:30 Hypotension noted Laboratory Tests 03/23/18 03/24/18 03/24/18 20:48 07:00 07:00 WBC 5.1 RBC 4.88 Hgb 14.6 Hct 41.9 D MCV 85.8 MCH 29.9 MCHC 34.8 RDW 14.8 Plt Count 168 MPV 8.4 Sodium Potassium Chloride Carbon Dioxide Anion Gap BUN Creatinine Creat Clearance w eGFR Random Glucose Calcium Total Bilirubin AST ALT Alkaline Phosphatase Total Protein Albumin Urine Color Yellow Urine Appearance Cloudy Urine pH 6.0 Ur Specific [place] 1.017 Urine Protein Negative Urine Glucose (UA) Negative Urine Ketones Negative Urine Blood 1+ H Urine Nitrite Negative Urine Bilirubin Negative Urine Urobilinogen Negative Ur Leukocyte Esterase Negative Urine WBC (Auto) None Urine RBC (Auto) 8 Ur Epithelial Cells Rare Calcium Oxalate Crystal Moderate Urine Mucus Moderate RPR Titer HIV 1&2 Antibody Screen Negative HIV P24 Antigen Negative 03/24/18 03/24/18 03/25/18 07:00 07:00 09:10 WBC RBC Hgb Hct MCV MCH MCHC RDW Plt Count MPV Sodium 142 Potassium 4.5 Chloride 106 Carbon Dioxide 28 Anion Gap 8 BUN 11 Creatinine 0.8 Creat Clearance w eGFR > 60 Random Glucose 80 Calcium 9.9 Total Bilirubin 0.8 AST 55 H ALT 96 H Alkaline Phosphatase 131 H Total Protein 8.4 H Albumin 3.6 Urine Color L[place] Urine Appearance Clear Urine pH 7.0 Ur Specific [place] 1.010 Urine Protein Negative Urine Glucose (UA) Negative Urine Ketones Negative Urine Blood Negative Urine Nitrite Negative Urine Bilirubin Negative Urine Urobilinogen Negative Ur Leukocyte Esterase Negative Urine WBC (Auto) Urine RBC (Auto) Ur Epithelial Cells Calcium Oxalate Crystal Urine Mucus RPR Titer Nonreactive HIV 1&2 Antibody Screen HIV P24 Antigen Labs reviewed Assessment: 03/26/18 13:05 Withdrawal symptoms Noted with hypotension Plan: Continue detox Hypotension: asymptomatic, encouraged PO water intake
[2018-03-26] MEDS: MELATONIN 5 MG TABLETS PO PRN (22:19)
[2018-03-26] MEDS: chlordiazePOXIDE HCL 10 MG CAPSULE PO SCH (22:19)
[2018-03-26] MEDS: THIAMINE HCL 100 MG TABLET (FP) PO SCH (22:19)
[2018-03-27] MEDS: chlordiazePOXIDE HCL 10 MG CAPSULE PO SCH ×3 (05:48→17:18)
[2018-03-27] MEDS ORDERED: TRIMETHOBENZAMIDE HCL 200MG/2ML INJ IM PRN (09:26)
[2018-03-27] MEDS ORDERED: METHADONE HCL 10 MG TABLET (FOR DETOX USE ONLY) PO SCH (10:00)
[2018-03-27] MEDS: NICOTINE 14 MG/24 HOURS TOPICAL PATCH TD SCH (10:28)
[2018-03-27] MEDS: PRENATAL VITAMINS W/ FOLIC ACID TABLET (FP) PO SCH (10:28)
--- NOTE | 2018-03-27 14:35 | PN ---
BHS Progress Note (SOAP) Subjective: Vomiting, interrupted sleep Objective: 03/27/18 14:30 Last Vital Signs Temp Pulse Resp BP Pulse Ox 96.8 F L 82 18 94/65 03/27/18 09:42 03/27/18 09:42 03/27/18 09:42 03/27/18 09:42 Hypotension: b/p 94/65 Laboratory Tests 03/23/18 03/24/18 03/24/18 20:48 07:00 07:00 WBC 5.1 RBC 4.88 Hgb 14.6 Hct 41.9 D MCV 85.8 MCH 29.9 MCHC 34.8 RDW 14.8 Plt Count 168 MPV 8.4 Sodium Potassium Chloride Carbon Dioxide Anion Gap BUN Creatinine Creat Clearance w eGFR Random Glucose Calcium Total Bilirubin AST ALT Alkaline Phosphatase Total Protein Albumin Urine Color Yellow Urine Appearance Cloudy Urine pH 6.0 Ur Specific [place] 1.017 Urine Protein Negative Urine Glucose (UA) Negative Urine Ketones Negative Urine Blood 1+ H Urine Nitrite Negative Urine Bilirubin Negative Urine Urobilinogen Negative Ur Leukocyte Esterase Negative Urine WBC (Auto) None Urine RBC (Auto) 8 Ur Epithelial Cells Rare Calcium Oxalate Crystal Moderate Urine Mucus Moderate RPR Titer HIV 1&2 Antibody Screen Negative HIV P24 Antigen Negative 03/24/18 03/24/18 03/25/18 07:00 07:00 09:10 WBC RBC Hgb Hct MCV MCH MCHC RDW Plt Count MPV Sodium 142 Potassium 4.5 Chloride 106 Carbon Dioxide 28 Anion Gap 8 BUN 11 Creatinine 0.8 Creat Clearance w eGFR > 60 Random Glucose 80 Calcium 9.9 Total Bilirubin 0.8 AST 55 H ALT 96 H Alkaline Phosphatase 131 H Total Protein 8.4 H Albumin 3.6 Urine Color L[place]ellow Urine Appearance Clear Urine pH 7.0 Ur Specific [place] 1.010 Urine Protein Negative Urine Glucose (UA) Negative Urine Ketones Negative Urine Blood Negative Urine Nitrite Negative Urine Bilirubin Negative Urine Urobilinogen Negative Ur Leukocyte Esterase Negative Urine WBC (Auto) Urine RBC (Auto) Ur Epithelial Cells Calcium Oxalate Crystal Urine Mucus RPR Titer Nonreactive HIV 1&2 Antibody Screen HIV P24 Antigen Labs reviewed Assessment: 03/27/18 14:31 Withdrawal symptoms Noted with hypotension Plan: Continue detox Hypotension: encouraged PO water intake
[2018-03-27] MEDS: THIAMINE HCL 100 MG TABLET (FP) PO SCH (22:17)
[2018-03-27] MEDS: MELATONIN 5 MG TABLETS PO PRN (22:17)
[2018-03-28] MEDS ORDERED: METHADONE HCL 5 MG TABLET (FOR DETOX USE ONLY) PO SCH (06:00)
[2018-03-28 10:44] VITALS: BP 99/66; PULSE 78; TEMP 97
--- NOTE | 2018-03-28 13:46 | DS ---
[facility] Detox Discharge Summary Admission Date: 03/23/18 Discharge Date: 03/28/18 - History Present History: Alcohol Dependence, Opioid Dependence - Physical Exam Results Vital Signs: Vital Signs Temperature 97 F L 03/28/18 10:38 Pulse Rate 78 03/28/18 10:38 Respiratory Rate 18 03/28/18 10:38 Blood Pressure 99/66 03/28/18 10:38 O2 Sat by Pulse Oximetry (%) Pertinent Admission Physical Exam Findings: PATIENT TOLERATED AND COMPLETED DETOX REGIMEN WITHOUT ADVERSE EVENT. MEDICALLY STABLE. DENIES SI/HI. PATIENT ALERT AND ORIENTED X 3, IN NAD. SKIN WARM AND DRY. AMB AD QUENTIN. EXT FULL ROM. P[place]INT ENCOURAGED TO ATTEND GROUP MEETINGS TO PREVENT RELAPSE AND FOLLOW UP WITH PCP WITHIN ONE WEEK OF D/C. PATIENT EDUCATED TO SEEK MEDICAL ATTENTION IF WITHDRAWAL SX OCCUR. D/C INSTRUCTIONS PROVIDED BY STAFF AND GIVEN TO PATIENT. - Treatment Hospital Course: Detox Protocol Followed, Detoxed Safely, Responded well, Discharged Condition Good - Medication Discharge Medications: Ambulatory Orders NK [No Known Home Medication] 10/08/17 - AMA Did Patient Leave Against Medical Advice: No
== END 2018-03-28 12:48 | disposition home or self-care (01) | DRG 897 ==
LOC: YASAS 14:35 → Y3N 17:27
PROC: HZ2ZZZZ Detoxification Services for Substance Abuse Treatment (ICD-10-PCS; principal; 2018-03-23)
DX: F11.23 Opioid dependence with withdrawal (principal); F14.20 Cocaine dependence, uncomplicated; F10.230 Alcohol dependence with withdrawal, uncomplicated; F17.210 Nicotine dependence, cigarettes, uncomplicated; I95.9 Hypotension, unspecified; G47.00 Insomnia, unspecified; B18.2 Chronic viral hepatitis C; R76.11 Nonspecific reaction to tuberculin skin test without active tuberculosis; R82.90 Unspecified abnormal findings in urine; R63.4 Abnormal weight loss; Z68.21 Body mass index [BMI] 21.0-21.9, adult; H54.62 Unqualified visual loss, left eye, normal vision right eye
CPT/HCPCS: 36415; 80053; 81003; 81015; 85027; 86593; 87389; 90688; 93005; 93010; G0008

== ENCOUNTER 2019-01-09 10:04 | Inpatient (IN) | payer OTHER ==
[2019-01-09 10:31] VITALS: BMI 21.1
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
[2019-01-09] MEDS ORDERED: METHADONE HCL 10 MG TABLET (FOR DETOX USE ONLY) PO ONE (12:25)
[2019-01-09] MEDS ORDERED: MAGNESIUM CITRATE 300 ML BOTTLE PO PRN (12:25)
[2019-01-09] MEDS ORDERED: MAGNESIUM HYDROX 2400MG/30ML ORAL SUSPENSION 30 ML CUP PO PRN (12:25)
[2019-01-09] MEDS ORDERED: MELATONIN 5 MG TABLETS PO PRN (12:25)
[2019-01-09] MEDS ORDERED: MAG HYDROX/AL HYDROX/SIMETH 30 ML UNIT-DOSE CUP PO PRN (12:25)
[2019-01-09] MEDS ORDERED: METHOCARBAMOL 500 MG TABLET PO PRN (12:25)
[2019-01-09] MEDS ORDERED: cloNIDine HCL 0.1 MG TABLET PO PRN (12:25)
[2019-01-09] MEDS ORDERED: MENTHOL/PHENOL 1 EACH UD MM PRN (12:25)
[2019-01-09] MEDS ORDERED: IBUPROFEN 400 MG TABLET (FP) PO PRN (12:25)
[2019-01-09] MEDS ORDERED: BISMUTH SUBSALICYLATE 262 MG/15 ML BTL PO PRN (12:25)
[2019-01-09] MEDS ORDERED: ACETAMINOPHEN 325 MG TABLET (FP) PO PRN (12:25)
[2019-01-09] MEDS: NICOTINE 21 MG/24 HOURS TOPICAL PATCH TD SCH (13:36)
[2019-01-09] MEDS: THIAMINE HCL 100 MG TABLET (FP) PO SCH (22:34)
[2019-01-09] MEDS: clonazePAM 0.5 MG TABLET PO PRN (22:34)
[2019-01-09] MEDS: QUEtiapine FUMARATE 100 MG TABLET (FP) PO PRN (22:34)
[2019-01-10] MEDS ORDERED: METHADONE HCL 5 MG TABLET (FOR DETOX USE ONLY) ONE (08:44)
[2019-01-10] MEDS ORDERED: METHADONE HCL 10 MG TABLET (FOR DETOX USE ONLY) ONE (08:44)
[2019-01-10] MEDS ORDERED: METHADONE (DETOX) 20 MG, METHADONE (DETOX) 5 MG PO ONE (10:00)
[2019-01-10] MEDS: NICOTINE 21 MG/24 HOURS TOPICAL PATCH TD SCH (10:30)
[2019-01-10] MEDS: PRENATAL VITAMINS W/ FOLIC ACID TABLET (FP) PO SCH (10:30)
--- NOTE | 2019-01-10 10:36 | PN ---
BHS COWS - Scale Resting Pulse: 1= [place] 81-100 Sweatin= Chills/Flushing Restless Observation: 0= Sits Still Pupil Size: 1= Pupils >than Normal Bone or Joint Aches: 1= Mild Discomfort Runny Nose/ Eye Tearin= None GI Upset > 30mins: 1= Stomach Cramp Tremor Observation of Outstretched Hands: 1= Tremor [place], Not Seen Yawning Observation: 0= None Anxiety or Irritability: 1=Feels Anxious/Irritable Goose Flesh Skin: 3=Piloerection COWS Score: 10 BHS Progress Note (SOAP) Subjective: 58 years old male admitted on 01/09/19 for opiate withdrawal sx management doing well with methadone detox regimen less body aches better concentration discuss medication assisted treatment program Objective: 01/10/19 10:36 Vital Signs Temperature 97.4 F L 01/10/19 09:23 Pulse Rate 87 01/10/19 09:23 Respiratory Rate 18 01/10/19 09:23 Blood Pressure 97/69 01/10/19 09:23 O2 Sat by Pulse Oximetry (%) 01/10/19 10:36 admission lab ordered Assessment: 01/10/19 10:37 opiate withdrawal sx Plan: continue opiate detox
[2019-01-10] MEDS: THIAMINE HCL 100 MG TABLET (FP) PO SCH (22:15)
[2019-01-10] MEDS: clonazePAM 0.5 MG TABLET PO PRN (22:15)
[2019-01-10] MEDS: QUEtiapine FUMARATE 100 MG TABLET (FP) PO PRN (22:15)
[2019-01-11] MEDS ORDERED: METHADONE HCL 10 MG TABLET (FOR DETOX USE ONLY) PO ONE (10:00)
--- NOTE | 2019-01-11 10:05 | PN ---
BHS COWS - Scale Resting Pulse: 1= [place] 81-100 Sweatin= Chills/Flushing Restless Observation: 0= Sits Still Pupil Size: 1= Pupils >than Normal Bone or Joint Aches: 1= Mild Discomfort Runny Nose/ Eye Tearin= Nasal Congestion GI Upset > 30mins: 1= Stomach Cramp Tremor Observation of Outstretched Hands: 1= Tremor [place], Not Seen Yawning Observation: 1= 1-2x During Session Anxiety or Irritability: 1=Feels Anxious/Irritable Goose Flesh Skin: 0=Smooth Skin COWS Score: 9 BHS Progress Note (SOAP) Subjective: doing well with methadone detox regimen less body aches mild sweat but tired resting on bed discuss medication assisted treatment program Objective: 01/11/19 10:05 Vital Signs Temperature 97.4 F L 01/11/19 09:08 Pulse Rate 86 01/11/19 09:08 Respiratory Rate 18 01/11/19 09:08 Blood Pressure 97/69 01/11/19 09:08 O2 Sat by Pulse Oximetry (%) 01/11/19 10:06 lab pending Assessment: 01/11/19 10:06 opiate withdrawal sx Plan: continue opiate detox
[2019-01-11] MEDS: PRENATAL VITAMINS W/ FOLIC ACID TABLET (FP) PO SCH (10:39)
[2019-01-11] MEDS: NICOTINE 21 MG/24 HOURS TOPICAL PATCH TD SCH (10:39)
[2019-01-11] MEDS: NICOTINE POLACRILEX 4 MG GUM BUC PRN (10:39)
[2019-01-11 10:47] LABS: HEMOGLOBIN 13.5 GM/dL (11.7-16.9); MCH 29.3 pg (25.7-33.7); MCHC 33.8 g/dl (32.0-35.9); MEAN CELL VOLUME 86.8 fl (80-96); MEAN PLT VOLUME 8.5 fl (7.5-11.1); PLATELET COUNT 170 K/MM3 (134-434); RDW 14.3 % (11.9-15.9); WHITE BLOOD COUNT 4.7 K/mm3 (4.0-10.0)
[2019-01-11 11:10] LABS: ALBUMIN 3.4 g/dl (3.4-5.0); BILIRUBIN,TOTAL 0.4 mg/dL (0.2-1); CALCIUM 9.3 mg/dL (8.5-10.1); CREATININE 0.8 mg/dL (0.55-1.3); POTASSIUM 4.1 mmol/L (3.5-5.1); TOT PROT 8.1 g/dl (6.4-8.2)
[2019-01-11] MEDS: THIAMINE HCL 100 MG TABLET (FP) PO SCH (22:28)
[2019-01-11] MEDS: QUEtiapine FUMARATE 100 MG TABLET (FP) PO PRN (22:28)
[2019-01-11] MEDS: clonazePAM 0.5 MG TABLET PO PRN (22:30)
[2019-01-12] MEDS ORDERED: METHADONE HCL 5 MG TABLET (FOR DETOX USE ONLY) ONE (09:04)
[2019-01-12] MEDS ORDERED: METHADONE HCL 10 MG TABLET (FOR DETOX USE ONLY) ONE (09:04)
[2019-01-12] MEDS ORDERED: METHADONE (DETOX) 10 MG, METHADONE (DETOX) 5 MG PO ONE (10:00)
[2019-01-12] MEDS: NICOTINE POLACRILEX 4 MG GUM BUC PRN (10:14)
[2019-01-12] MEDS: PRENATAL VITAMINS W/ FOLIC ACID TABLET (FP) PO SCH (10:14)
[2019-01-12] MEDS: NICOTINE 21 MG/24 HOURS TOPICAL PATCH TD SCH (10:52)
--- NOTE | 2019-01-12 14:06 | PN ---
BHS COWS - Scale Resting Pulse: 2= ND 101-120 Sweatin= Chills/Flushing Restless Observation: 0= Sits Still Pupil Size: 1= Pupils >than Normal Bone or Joint Aches: 1= Mild Discomfort Runny Nose/ Eye Tearin= None GI Upset > 30mins: 0= None Tremor Observation of Outstretched Hands: 1= Tremor [place], Not Seen Yawning Observation: 0= None Anxiety or Irritability: 1=Feels Anxious/Irritable Goose Flesh Skin: 0=Smooth Skin COWS Score: 7 BHS Progress Note (SOAP) Subjective: patient is doing well with methadone detox regimen tolerate food and fluid well social with peers in day room discuss medication assisted treatment program Objective: 01/12/19 14:10 Vital Signs Temperature 97.4 F L 01/12/19 13:26 Pulse Rate 101 H 01/12/19 13:26 Respiratory Rate 20 01/12/19 13:26 Blood Pressure 90/61 01/12/19 13:26 O2 Sat by Pulse Oximetry (%) Laboratory Last Values WBC 4.7 K/mm3 (4.0-10.0) 01/11/19 07:00 RBC 4.60 M/mm3 (4.00-5.60) 01/11/19 07:00 Hgb 13.5 GM/dL (11.7-16.9) 01/11/19 07:00 Hct 40.0 % (35.4-49) 01/11/19 07:00 MCV 86.8 fl (80-96) 01/11/19 07:00 MCH 29.3 pg (25.7-33.7) 01/11/19 07:00 MCHC 33.8 g/dl (32.0-35.9) 01/11/19 07:00 RDW 14.3 % (11.9-15.9) 01/11/19 07:00 Plt Count 170 K/MM3 (134-434) 01/11/19 07:00 MPV 8.5 fl (7.5-11.1) 01/11/19 07:00 Sodium 139 mmol/L (136-145) 01/11/19 07:00 Potassium 4.1 mmol/L (3.5-5.1) 01/11/19 07:00 Chloride 106 mmol/L (98-107) 01/11/19 07:00 Carbon Dioxide 26 mmol/L (21-32) 01/11/19 07:00 Anion Gap 7 MMOL/L (8-16) L 01/11/19 07:00 BUN 12.0 mg/dL (7-18) 01/11/19 07:00 Creatinine 0.8 mg/dL (0.55-1.3) 01/11/19 07:00 Est GFR (CKD-EPI)AfAm 115.74 01/11/19 07:00 Est GFR (CKD-EPI)NonAf 99.86 01/11/19 07:00 Random Glucose 81 mg/dL (74-106) 01/11/19 07:00 Calcium 9.3 mg/dL (8.5-10.1) 01/11/19 07:00 Total Bilirubin 0.4 mg/dL (0.2-1) 01/11/19 07:00 AST 30 U/L (15-37) 01/11/19 07:00 ALT 55 U/L (13-61) 01/11/19 07:00 Alkaline Phosphatase 106 U/L (45-117) 01/11/19 07:00 Total Protein 8.1 g/dl (6.4-8.2) 01/11/19 07:00 Albumin 3.4 g/dl (3.4-5.0) 01/11/19 07:00 RPR Titer Nonreactive (NONREACTIVE) 01/11/19 07:00 lab noted Assessment: 01/12/19 14:12 opiate withdrawal sx Plan: continue opiate detox
[2019-01-12] MEDS: THIAMINE HCL 100 MG TABLET (FP) PO SCH (22:18)
[2019-01-12] MEDS: clonazePAM 0.5 MG TABLET PO PRN (22:18)
[2019-01-12] MEDS: QUEtiapine FUMARATE 100 MG TABLET (FP) PO PRN (22:18)
[2019-01-13] MEDS ORDERED: METHADONE HCL 10 MG TABLET (FOR DETOX USE ONLY) PO ONE (10:00)
[2019-01-13] MEDS: PRENATAL VITAMINS W/ FOLIC ACID TABLET (FP) PO SCH (10:24)
[2019-01-13] MEDS: NICOTINE 21 MG/24 HOURS TOPICAL PATCH TD SCH (10:24)
--- NOTE | 2019-01-13 10:46 | PN ---
BHS COWS - Scale Resting Pulse: 1= [place] 81-100 Sweatin= No chills or Flushing Restless Observation: 0= Sits Still Pupil Size: 0= Normal to Room Light Bone or Joint Aches: 1= Mild Discomfort Runny Nose/ Eye Tearin= None GI Upset > 30mins: 0= None Tremor Observation of Outstretched Hands: 1= Tremor [place], Not Seen Yawning Observation: 0= None Anxiety or Irritability: 1=Feels Anxious/Irritable Goose Flesh Skin: 0=Smooth Skin COWS Score: 4 S Progress Note (SOAP) Subjective: doing well with methadone detox mild body aches less tremor discuss medication assisted treatment program Objective: 01/13/19 10:45 Vital Signs Temperature 97.1 F L 01/13/19 09:22 Pulse Rate 88 01/13/19 09:22 Respiratory Rate 18 01/13/19 09:22 Blood Pressure 91/64 01/13/19 09:22 O2 Sat by Pulse Oximetry (%) Laboratory Last Values WBC 4.7 K/mm3 (4.0-10.0) 01/11/19 07:00 RBC 4.60 M/mm3 (4.00-5.60) 01/11/19 07:00 Hgb 13.5 GM/dL (11.7-16.9) 01/11/19 07:00 Hct 40.0 % (35.4-49) 01/11/19 07:00 MCV 86.8 fl (80-96) 01/11/19 07:00 MCH 29.3 pg (25.7-33.7) 01/11/19 07:00 MCHC 33.8 g/dl (32.0-35.9) 01/11/19 07:00 RDW 14.3 % (11.9-15.9) 01/11/19 07:00 Plt Count 170 K/MM3 (134-434) 01/11/19 07:00 MPV 8.5 fl (7.5-11.1) 01/11/19 07:00 Sodium 139 mmol/L (136-145) 01/11/19 07:00 Potassium 4.1 mmol/L (3.5-5.1) 01/11/19 07:00 Chloride 106 mmol/L (98-107) 01/11/19 07:00 Carbon Dioxide 26 mmol/L (21-32) 01/11/19 07:00 Anion Gap 7 MMOL/L (8-16) L 01/11/19 07:00 BUN 12.0 mg/dL (7-18) 01/11/19 07:00 Creatinine 0.8 mg/dL (0.55-1.3) 01/11/19 07:00 Est GFR (CKD-EPI)AfAm 115.74 01/11/19 07:00 Est GFR (CKD-EPI)NonAf 99.86 01/11/19 07:00 Random Glucose 81 mg/dL (74-106) 01/11/19 07:00 Calcium 9.3 mg/dL (8.5-10.1) 01/11/19 07:00 Total Bilirubin 0.4 mg/dL (0.2-1) 01/11/19 07:00 AST 30 U/L (15-37) 01/11/19 07:00 ALT 55 U/L (13-61) 01/11/19 07:00 Alkaline Phosphatase 106 U/L (45-117) 01/11/19 07:00 Total Protein 8.1 g/dl (6.4-8.2) 01/11/19 07:00 Albumin 3.4 g/dl (3.4-5.0) 01/11/19 07:00 RPR Titer Nonreactive (NONREACTIVE) 01/11/19 07:00 lab noted Assessment: 01/13/19 10:45 opiate withdrawal sx Plan: continue opiate detox
[2019-01-13] MEDS: QUEtiapine FUMARATE 100 MG TABLET (FP) PO PRN (22:24)
[2019-01-13] MEDS: clonazePAM 0.5 MG TABLET PO PRN (22:24)
[2019-01-13] MEDS: THIAMINE HCL 100 MG TABLET (FP) PO SCH (22:24)
[2019-01-14] MEDS ORDERED: METHADONE HCL 5 MG TABLET (FOR DETOX USE ONLY) PO ONE (06:00)
[2019-01-14 06:16] VITALS: BP 94/59; PULSE 57; TEMP 98
--- NOTE | 2019-01-14 11:30 | DS ---
[facility] Detox Discharge Summary Admission Date: 01/09/19 Discharge Date: 01/14/19 - History Present History: Opioid Dependence Additional Comments: 58 years old presented to [facility] with opiate withdrawal sx treated with methadone detox regimen tolerate well no complication through out the detox stay history of hepatitic c positive ppd and left eye blind x "years" patient is alert oriented x 3 denies shortness of breathe no dizziness S1S2 clear lung bilaterally abdomen soft none tenderness - Physical Exam Results Vital Signs: Vital Signs Temperature 98 F 01/14/19 06:15 Pulse Rate 57 L 01/14/19 06:15 Respiratory Rate 16 01/14/19 06:15 Blood Pressure 94/59 L 01/14/19 06:15 O2 Sat by Pulse Oximetry (%) Pertinent Admission Physical Exam Findings: opiate withdrawal sx Vital Signs Temperature 98 F 01/14/19 06:15 Pulse Rate 57 L 01/14/19 06:15 Respiratory Rate 16 01/14/19 06:15 Blood Pressure 94/59 L 01/14/19 06:15 O2 Sat by Pulse Oximetry (%) Laboratory Last Values WBC 4.7 K/mm3 (4.0-10.0) 01/11/19 07:00 RBC 4.60 M/mm3 (4.00-5.60) 01/11/19 07:00 Hgb 13.5 GM/dL (11.7-16.9) 01/11/19 07:00 Hct 40.0 % (35.4-49) 01/11/19 07:00 MCV 86.8 fl (80-96) 01/11/19 07:00 MCH 29.3 pg (25.7-33.7) 01/11/19 07:00 MCHC 33.8 g/dl (32.0-35.9) 01/11/19 07:00 RDW 14.3 % (11.9-15.9) 01/11/19 07:00 Plt Count 170 K/MM3 (134-434) 01/11/19 07:00 MPV 8.5 fl (7.5-11.1) 01/11/19 07:00 Sodium 139 mmol/L (136-145) 01/11/19 07:00 Potassium 4.1 mmol/L (3.5-5.1) 01/11/19 07:00 Chloride 106 mmol/L (98-107) 01/11/19 07:00 Carbon Dioxide 26 mmol/L (21-32) 01/11/19 07:00 Anion Gap 7 MMOL/L (8-16) L 01/11/19 07:00 BUN 12.0 mg/dL (7-18) 01/11/19 07:00 Creatinine 0.8 mg/dL (0.55-1.3) 01/11/19 07:00 Est GFR (CKD-EPI)AfAm 115.74 01/11/19 07:00 Est GFR (CKD-EPI)NonAf 99.86 01/11/19 07:00 Random Glucose 81 mg/dL (74-106) 01/11/19 07:00 Calcium 9.3 mg/dL (8.5-10.1) 01/11/19 07:00 Total Bilirubin 0.4 mg/dL (0.2-1) 01/11/19 07:00 AST 30 U/L (15-37) 01/11/19 07:00 ALT 55 U/L (13-61) 01/11/19 07:00 Alkaline Phosphatase 106 U/L (45-117) 01/11/19 07:00 Total Protein 8.1 g/dl (6.4-8.2) 01/11/19 07:00 Albumin 3.4 g/dl (3.4-5.0) 01/11/19 07:00 RPR Titer Nonreactive (NONREACTIVE) 01/11/19 07:00 lab noted - Treatment Hospital Course: Detox Protocol Followed, Detoxed Safely, Responded well, Discharged Condition Good, Rehab Referral Accepted Patient has Accepted a Rehab Referral to: [facility] - Medication Discharge Medications: Ambulatory Orders NK [No Known Home Medication] 10/08/17 - Diagnosis (1) Nicotine dependence Status: Acute Qualifiers: Nicotine product type: cigarettes Substance use status: in withdrawal Qualified Code(s): F17.213 - Nicotine dependence, cigarettes, with withdrawal (2) PPD positive, treated Status: Resolved (3) Substance induced mood disorder Status: Suspected (4) Underweight Status: Acute (5) Blindness of left eye Status: Chronic Qualifiers: Right eye visual impairment category: right - unspecified blindness Qualified Code(s): H54.3 - Unqualified visual loss, both eyes (6) Hepatitis C Status: Chronic Qualifiers: Viral hepatitis chronicity: chronic Hepatic coma status: without hepatic coma Qualified Code(s): B18.2 - Chronic viral hepatitis C (7) Opioid dependence with withdrawal Status: Acute - AMA Did Patient Leave Against Medical Advice: No
== END 2019-01-14 08:49 | disposition home or self-care (01) | DRG 897 ==
LOC: YASAS 10:04 → Y3N 12:41
PROVIDERS: ADMIT Surgery; ATTEND Surgery
PROC: HZ2ZZZZ Detoxification Services for Substance Abuse Treatment (ICD-10-PCS; principal; 2019-01-09)
DX: F11.23 Opioid dependence with withdrawal (principal); F14.20 Cocaine dependence, uncomplicated; F17.210 Nicotine dependence, cigarettes, uncomplicated; F32.9 Major depressive disorder, single episode, unspecified; B18.2 Chronic viral hepatitis C; H54.62 Unqualified visual loss, left eye, normal vision right eye; R63.4 Abnormal weight loss; Z68.21 Body mass index [BMI] 21.0-21.9, adult
CPT/HCPCS: 36415; 80053; 85027; 86593

== ENCOUNTER 2019-05-12 14:14 | Inpatient (IN) | payer OTHER ==
[2019-05-12 15:52] VITALS: BMI 21.6
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
[2019-05-12] MEDS ORDERED: MAGNESIUM HYDROX 2400MG/30ML ORAL SUSPENSION 30 ML CUP PO PRN (17:51)
[2019-05-12] MEDS ORDERED: IBUPROFEN 400 MG TABLET (FP) PO PRN (17:51)
[2019-05-12] MEDS ORDERED: NICOTINE POLACRILEX 4 MG GUM BUC PRN (17:51)
[2019-05-12] MEDS ORDERED: PROCHLORPERAZINE MALEATE 5 MG TABLET PO PRN (17:51)
[2019-05-12] MEDS ORDERED: MENTHOL/PHENOL 1 EACH UD MM PRN (17:51)
[2019-05-12] MEDS ORDERED: METHOCARBAMOL 500 MG TABLET PO PRN (17:51)
[2019-05-12] MEDS ORDERED: BISMUTH SUBSALICYLATE 524 MG/30 ML UD PO PRN (17:51)
[2019-05-12] MEDS ORDERED: hydrOXYzine PAMOATE 25 MG CAPSULE (FP) PO PRN (17:51)
[2019-05-12] MEDS ORDERED: MAGNESIUM CITRATE 300 ML BOTTLE PO PRN (17:51)
[2019-05-12] MEDS ORDERED: MAG HYDROX/AL HYDROX/SIMETH 30 ML UNIT-DOSE CUP PO PRN (17:51)
[2019-05-12] MEDS ORDERED: ACETAMINOPHEN 325 MG TABLET (FP) PO PRN ×2 (17:51)
[2019-05-12] MEDS ORDERED: cloNIDine HCL 0.1 MG TABLET PO PRN (18:08)
[2019-05-12] MEDS ORDERED: METHADONE HCL 10 MG TABLET (FOR DETOX USE ONLY) PO ONE (18:30)
--- NOTE | 2019-05-12 19:11 | PN ---
Teaching Attending Note Name of Resident: Mona Mayer ATTENDING PHYSICIAN STATEMENT I saw and evaluated the patient. I reviewed the resident's note and discussed the case with the resident. I agree with the resident's findings and plan as documented. SUBJECTIVE:59 y/o male pt here requesting detox from opiate use , claims 10-12 bags/day via IV , illicit methadone use 30 mg 2 days ago , DENIES participation in [facility] . ETOH - not daily , 1/2 pint vodka 2 days ago . cocaine 20 $ occasional use tobacco : 1/2 ppd x 30 yrs PMH: treated hep c 1 yr ago in [place] Psych: none PSH: none OBJECTIVE: thin Vital Signs - 24 hr 05/12/19 05/12/19 15:45 18:32 Temperature 98.3 F 97.9 F Pulse Rate 81 71 Respiratory 17 18 Rate Blood Pressure 105/71 103/70 ASSESSMENT AND PLAN:OUD - Methadone detox
[2019-05-12] MEDS: THIAMINE HCL 100 MG TABLET (FP) PO SCH (22:07)
[2019-05-12] MEDS: MELATONIN 5 MG TABLETS PO PRN (22:07)
[2019-05-13] MEDS ORDERED: METHADONE HCL 10 MG TABLET (FOR DETOX USE ONLY) ONE (08:43)
[2019-05-13] MEDS ORDERED: diazePAM 5 MG TABLET PO PRN (09:41)
--- NOTE | 2019-05-13 09:42 | PN ---
[facility] CIWA - CIWA Score Nausea/Vomitin-Mild Nausea/No Vomiting Muscle Tremors: 3 Anxiety: 3 Agitation: 2 Paroxysmal Sweats: 1-Minimal [place]ms Moist Orientation: 0-Oriented Tacttile Disturbances: 1-Very Mild Itch/Numbness Auditory Disturbances: 0-None Visual Disturbances: 0-None Headache: 0-None Present CIWA-Ar Total Score: 11 BHS COWS - Scale Resting Pulse: 0= [place] 80 or Below Sweatin= Chills/Flushing Restless Observation: 0= Sits Still Pupil Size: 1= Pupils >than Normal Bone or Joint Aches: 1= Mild Discomfort Runny Nose/ Eye Tearin= Nasal Congestion GI Upset > 30mins: 2= Nausea/Diarrhea Tremor Observation of Outstretched Hands: 1= Tremor [place], Not Seen Yawning Observation: 1= 1-2x During Session Anxiety or Irritability: 1=Feels Anxious/Irritable Goose Flesh Skin: 0=Smooth Skin COWS Score: 9 [facility] Progress Note (SOAP) Subjective: 59 years old male admitted on 05/12/19 for opiate and alcohol withdrawal sx management treated with valium prn and methadone detox regimen patient has bp below 140/90 discontinue clonidine 0.1mg po prn begin valium prn for alcohol withdrawal sx Objective: 05/13/19 09:46 Vital Signs Temperature 96.9 F L 05/13/19 09:02 Pulse Rate 63 05/13/19 09:02 Respiratory Rate 16 05/13/19 09:02 Blood Pressure 92/61 05/13/19 09:02 O2 Sat by Pulse Oximetry (%) 05/13/19 09:46 lab pending Assessment: 05/13/19 09:47 alcohol and opiate withdrawal sx Plan: valium prn and methadone detox regimen
[2019-05-13 09:46] LABS: HEMATOCRIT 40.9 % (35.4-49); HEMOGLOBIN 13.9 GM/dL (11.7-16.9); MCH 28.9 pg (25.7-33.7); MCHC 34.1 g/dl (32.0-35.9); MEAN CELL VOLUME 84.7 fl (80-96); MEAN PLT VOLUME 8.2 fl (7.5-11.1); PLATELET COUNT 168 K/MM3 (134-434); RBC 4.83 M/mm3 (4.00-5.60); RDW 14.6 % (11.9-15.9); WHITE BLOOD COUNT 4.2 K/mm3 (4.0-10.0)
[2019-05-13] MEDS ORDERED: METHADONE HCL 10 MG TABLET (FOR DETOX USE ONLY) PO ONE (10:00)
[2019-05-13] MEDS ORDERED: METHADONE HCL 5 MG TABLET (FOR DETOX USE ONLY) PO ONE (10:00)
[2019-05-13] MEDS ORDERED: METHADONE (DETOX) 20 MG, METHADONE (DETOX) 5 MG PO ONE (10:00)
[2019-05-13] MEDS: PRENATAL VITAMINS W/ FOLIC ACID TABLET (FP) PO SCH (10:05)
[2019-05-13 10:11] LABS: ALBUMIN 3.3 g/dl (3.4-5.0); BILIRUBIN,TOTAL 0.9 mg/dL (0.2-1); CREATININE 0.8 mg/dL (0.55-1.3); POTASSIUM 4.2 mmol/L (3.5-5.1); TOT PROT 7.9 g/dl (6.4-8.2)
--- NOTE | 2019-05-13 10:45 | EKG ---
Test Reason : Blood Pressure : / mmHG Vent. Rate : 071 BPM Atrial Rate : 071 BPM P-R Int : 180 ms QRS Dur : 094 ms QT Int : 416 ms P-R-T Axes : 071 040 052 degrees QTc Int : 452 ms NORMAL SINUS RHYTHM LOW VOLTAGE QRS BORDERLINE ECG WHEN COMPARED WITH ECG OF 23-MAR-2018 18:59, NO SIGNIFICANT CHANGE WAS FOUND Confirmed by CHAPO VERDUGO MD ([id number]) on 05/13/2019 10:44:59 AM Referred By: Confirmed By:CHAPO VERDUGO MD
[2019-05-13] MEDS: BACITRACIN 15 GM TUBE TOPICAL OINTMENT TP SCH (11:31)
[2019-05-13] MEDS: THIAMINE HCL 100 MG TABLET (FP) PO SCH (22:02)
[2019-05-13] MEDS: MELATONIN 5 MG TABLETS PO PRN (22:02)
[2019-05-14] MEDS ORDERED: METHADONE HCL 10 MG TABLET (FOR DETOX USE ONLY) PO ONE (10:00)
[2019-05-14] MEDS: BACITRACIN 15 GM TUBE TOPICAL OINTMENT TP SCH (10:09)
[2019-05-14] MEDS: PRENATAL VITAMINS W/ FOLIC ACID TABLET (FP) PO SCH (10:10)
[2019-05-14] MEDS: diazePAM 5 MG TABLET PO PRN ×2 (10:10→19:09)
--- NOTE | 2019-05-14 11:25 | PN ---
[facility] CIWA - CIWA Score Nausea/Vomitin-No Nausea/No Vomiting Muscle Tremors: 2 Anxiety: 3 Agitation: 1-Slight > Activity Paroxysmal Sweats: 2 Orientation: 0-Oriented Tacttile Disturbances: 2-Mild Itch/Numbness/Burn Auditory Disturbances: 0-None Visual Disturbances: 0-None Headache: 1-Very Mild CIWA-Ar Total Score: 11 S COWS - Scale Resting Pulse: 1= [place] 81-100 Sweatin=Flushed/Facial Moisture Restless Observation: 1= Difficult to Sit Still Pupil Size: 0= Normal to Room Light Bone or Joint Aches: 1= Mild Discomfort Runny Nose/ Eye Tearin= Runny Nose/Eyes GI Upset > 30mins: 0= None Tremor Observation of Outstretched Hands: 0= None Yawning Observation: 2= >3x During Session Anxiety or Irritability: 2=Irritable/Anxious Goose Flesh Skin: 0=Smooth Skin COWS Score: 11 S Progress Note (SOAP) Subjective: Patient admitted for opiate and alcohol withdrawal sx management treated with valium prn and methadone detox regimen c/o of chills, sweats, interrupted sleep Objective: 05/14/19 11:21 Vital Signs Temperature 97.7 F 05/14/19 09:19 Pulse Rate 85 05/14/19 09:19 Respiratory Rate 18 05/14/19 09:19 Blood Pressure 95/70 05/14/19 09:19 O2 Sat by Pulse Oximetry (%) Laboratory Last Values WBC 4.2 K/mm3 (4.0-10.0) 05/13/19 08:00 RBC 4.83 M/mm3 (4.00-5.60) 05/13/19 08:00 Hgb 13.9 GM/dL (11.7-16.9) 05/13/19 08:00 Hct 40.9 % (35.4-49) 05/13/19 08:00 MCV 84.7 fl (80-96) 05/13/19 08:00 MCH 28.9 pg (25.7-33.7) 05/13/19 08:00 MCHC 34.1 g/dl (32.0-35.9) 05/13/19 08:00 RDW 14.6 % (11.9-15.9) 05/13/19 08:00 Plt Count 168 K/MM3 (134-434) 05/13/19 08:00 MPV 8.2 fl (7.5-11.1) 05/13/19 08:00 Sodium 137 mmol/L (136-145) 05/13/19 08:00 Potassium 4.2 mmol/L (3.5-5.1) 05/13/19 08:00 Chloride 104 mmol/L (98-107) 05/13/19 08:00 Carbon Dioxide 27 mmol/L (21-32) 05/13/19 08:00 Anion Gap 6 MMOL/L (8-16) L 05/13/19 08:00 BUN 12.0 mg/dL (7-18) 05/13/19 08:00 Creatinine 0.8 mg/dL (0.55-1.3) 05/13/19 08:00 Est GFR (CKD-EPI)AfAm 114.93 05/13/19 08:00 Est GFR (CKD-EPI)NonAf 99.16 05/13/19 08:00 Random Glucose 83 mg/dL (74-106) 05/13/19 08:00 Calcium 9.0 mg/dL (8.5-10.1) 05/13/19 08:00 Total Bilirubin 0.9 mg/dL (0.2-1) 05/13/19 08:00 AST 50 U/L (15-37) H 05/13/19 08:00 ALT 72 U/L (13-61) H 05/13/19 08:00 Alkaline Phosphatase 117 U/L (45-117) 05/13/19 08:00 Total Protein 7.9 g/dl (6.4-8.2) 05/13/19 08:00 Albumin 3.3 g/dl (3.4-5.0) L 05/13/19 08:00 RPR Titer Nonreactive (NONREACTIVE) 05/13/19 08:00 Assessment: 05/14/19 11:23 Patient Aox3 no acute distress no adventitious breath sounds full ROM no gait disturbance ambulating in the unit withdrawal sx elevated LFTS Plan: Patient to follow up with PCP upon discharge increase PO fluids continue detox Continue to monitor
[2019-05-14] MEDS: MELATONIN 5 MG TABLETS PO PRN (22:00)
[2019-05-14] MEDS: THIAMINE HCL 100 MG TABLET (FP) PO SCH (22:00)
[2019-05-15] MEDS: diazePAM 5 MG TABLET PO PRN ×2 (06:16→17:59)
[2019-05-15] MEDS ORDERED: METHADONE HCL 10 MG TABLET (FOR DETOX USE ONLY) ONE (09:04)
[2019-05-15] MEDS ORDERED: METHADONE HCL 5 MG TABLET (FOR DETOX USE ONLY) ONE (09:04)
[2019-05-15] MEDS ORDERED: METHADONE (DETOX) 10 MG, METHADONE (DETOX) 5 MG PO ONE (10:00)
[2019-05-15] MEDS: BACITRACIN 15 GM TUBE TOPICAL OINTMENT TP SCH (10:09)
[2019-05-15] MEDS: PRENATAL VITAMINS W/ FOLIC ACID TABLET (FP) PO SCH (10:10)
--- NOTE | 2019-05-15 11:47 | PN ---
[facility] CIWA - CIWA Score Nausea/Vomitin-No Nausea/No Vomiting Muscle Tremors: None Anxiety: 3 Agitation: 0-Normal Activity Paroxysmal Sweats: 3 Orientation: 0-Oriented Tacttile Disturbances: 0-None Auditory Disturbances: 0-None Visual Disturbances: 0-None Headache: 2-Mild CIWA-Ar Total Score: 8 S COWS - Scale Resting Pulse: 0= [place] 80 or Below Sweatin= Beads of Sweat on Face Restless Observation: 1= Difficult to Sit Still Pupil Size: 0= Normal to Room Light Bone or Joint Aches: 1= Mild Discomfort Runny Nose/ Eye Tearin= None GI Upset > 30mins: 0= None Tremor Observation of Outstretched Hands: 0= None Yawning Observation: 1= 1-2x During Session Anxiety or Irritability: 2=Irritable/Anxious Goose Flesh Skin: 0=Smooth Skin COWS Score: 8 [facility] Progress Note (SOAP) Subjective: c/o sweats, anxiety, headache, and irritability. Objective: 05/15/19 11:45 Vital Signs 05/15/19 05/15/19 05/15/19 06:30 06:51 09:16 Temperature 97.4 F L 96.4 F L Pulse Rate 58 L 76 Respiratory 18 18 16 Rate Blood Pressure 95/61 94/62 Laboratory Last Values WBC 4.2 K/mm3 (4.0-10.0) 05/13/19 08:00 RBC 4.83 M/mm3 (4.00-5.60) 05/13/19 08:00 Hgb 13.9 GM/dL (11.7-16.9) 05/13/19 08:00 Hct 40.9 % (35.4-49) 05/13/19 08:00 MCV 84.7 fl (80-96) 05/13/19 08:00 MCH 28.9 pg (25.7-33.7) 05/13/19 08:00 MCHC 34.1 g/dl (32.0-35.9) 05/13/19 08:00 RDW 14.6 % (11.9-15.9) 05/13/19 08:00 Plt Count 168 K/MM3 (134-434) 05/13/19 08:00 MPV 8.2 fl (7.5-11.1) 05/13/19 08:00 Sodium 137 mmol/L (136-145) 05/13/19 08:00 Potassium 4.2 mmol/L (3.5-5.1) 05/13/19 08:00 Chloride 104 mmol/L (98-107) 05/13/19 08:00 Carbon Dioxide 27 mmol/L (21-32) 05/13/19 08:00 Anion Gap 6 MMOL/L (8-16) L 05/13/19 08:00 BUN 12.0 mg/dL (7-18) 05/13/19 08:00 Creatinine 0.8 mg/dL (0.55-1.3) 05/13/19 08:00 Est GFR (CKD-EPI)AfAm 114.93 05/13/19 08:00 Est GFR (CKD-EPI)NonAf 99.16 05/13/19 08:00 Random Glucose 83 mg/dL (74-106) 05/13/19 08:00 Calcium 9.0 mg/dL (8.5-10.1) 05/13/19 08:00 Total Bilirubin 0.9 mg/dL (0.2-1) 05/13/19 08:00 AST 50 U/L (15-37) H 05/13/19 08:00 ALT 72 U/L (13-61) H 05/13/19 08:00 Alkaline Phosphatase 117 U/L (45-117) 05/13/19 08:00 Total Protein 7.9 g/dl (6.4-8.2) 05/13/19 08:00 Albumin 3.3 g/dl (3.4-5.0) L 05/13/19 08:00 RPR Titer Nonreactive (NONREACTIVE) 05/13/19 08:00 Labs noted. Assessment: 05/15/19 11:46 AOX3, in no acute respiratory distress. Full ROM, ambulating in the unit. Withdrawal symptoms. 05/15/19 11:46 Plan: continue detox.
[2019-05-15] MEDS: MELATONIN 5 MG TABLETS PO PRN (22:00)
[2019-05-15] MEDS: THIAMINE HCL 100 MG TABLET (FP) PO SCH (22:00)
[2019-05-16] MEDS ORDERED: diazePAM 5 MG TABLET PO PRN (00:01)
[2019-05-16] MEDS ORDERED: METHADONE HCL 10 MG TABLET (FOR DETOX USE ONLY) PO ONE (10:00)
[2019-05-16] MEDS: PRENATAL VITAMINS W/ FOLIC ACID TABLET (FP) PO SCH (10:52)
[2019-05-16] MEDS: BACITRACIN 15 GM TUBE TOPICAL OINTMENT TP SCH (11:04)
--- NOTE | 2019-05-16 11:25 | PN ---
S CIWA - CIWA Score Nausea/Vomitin-No Nausea/No Vomiting Muscle Tremors: 1-None Visible, but [place] Anxiety: 1-Mildly Anxious Agitation: 1-Slight > Activity Paroxysmal Sweats: 1-Minimal Palms Moist Orientation: 0-Oriented Tacttile Disturbances: 0-None Auditory Disturbances: 0-None Visual Disturbances: 0-None Headache: 0-None Present CIWA-Ar Total Score: 4 BHS COWS - Scale Resting Pulse: 0= [place] 80 or Below Sweatin= Chills/Flushing Restless Observation: 0= Sits Still Pupil Size: 0= Normal to Room Light Bone or Joint Aches: 0= None Runny Nose/ Eye Tearin= None GI Upset > 30mins: 1= Stomach Cramp Tremor Observation of Outstretched Hands: 1= Tremor [place], Not Seen Yawning Observation: 0= None Anxiety or Irritability: 1=Feels Anxious/Irritable Goose Flesh Skin: 0=Smooth Skin COWS Score: 4 S Progress Note (SOAP) Subjective: 59 years old male admitted on 05/12/19 for alcohol and opiate withdrawal sx management treated with valium and methadone detox regimen feeling better today less tremor mild anxiety 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5-11.1) 05/13/19 08:00 Sodium 137 mmol/L (136-145) 05/13/19 08:00 Potassium 4.2 mmol/L (3.5-5.1) 05/13/19 08:00 Chloride 104 mmol/L (98-107) 05/13/19 08:00 Carbon Dioxide 27 mmol/L (21-32) 05/13/19 08:00 Anion Gap 6 MMOL/L (8-16) L 05/13/19 08:00 BUN 12.0 mg/dL (7-18) 05/13/19 08:00 Creatinine 0.8 mg/dL (0.55-1.3) 05/13/19 08:00 Est GFR (CKD-EPI)AfAm 114.93 05/13/19 08:00 Est GFR (CKD-EPI)NonAf 99.16 05/13/19 08:00 Random Glucose 83 mg/dL (74-106) 05/13/19 08:00 Calcium 9.0 mg/dL (8.5-10.1) 05/13/19 08:00 Total Bilirubin 0.9 mg/dL (0.2-1) 05/13/19 08:00 AST 50 U/L (15-37) H 05/13/19 08:00 ALT 72 U/L (13-61) H 05/13/19 08:00 Alkaline Phosphatase 117 U/L (45-117) 05/13/19 08:00 Total Protein 7.9 g/dl (6.4-8.2) 05/13/19 08:00 Albumin 3.3 g/dl (3.4-5.0) L 05/13/19 08:00 RPR Titer Nonreactive (NONREACTIVE) 05/13/19 08:00 lab noted Assessment: 05/16/19 11:25 alcohol and opiate withdrawal sx Plan: continue valium and methadone detox regimen
[2019-05-16] MEDS: MELATONIN 5 MG TABLETS PO PRN (22:04)
[2019-05-16] MEDS: THIAMINE HCL 100 MG TABLET (FP) PO SCH (22:04)
[2019-05-17] MEDS ORDERED: METHADONE HCL 5 MG TABLET (FOR DETOX USE ONLY) PO ONE (06:00)
[2019-05-17 09:05] VITALS: BP 93/56; PULSE 70; TEMP 98
--- NOTE | 2019-05-17 11:42 | DS ---
[facility] Detox Discharge Summary Admission Date: 05/12/19 Discharge Date: 05/17/19 - History Present History: Alcohol Dependence, Opioid Dependence Additional Comments: 59 years old male admitted on 05/12/19 for alcohol and opiate withdrawal sx management treated with valium and methadone detox regimen patient tolerated well alert oriented x 3 cardiac s1s2 regular rate rhythm respiratory clear lung bilaterally on auscultation extremities full range of motion - Physical Exam Results Vital Signs: Vital Signs Temperature 98.0 F 05/17/19 09:05 Pulse Rate 70 05/17/19 09:05 Respiratory Rate 16 05/17/19 09:05 Blood Pressure 93/56 L 05/17/19 09:05 O2 Sat by Pulse Oximetry (%) Pertinent Admission Physical Exam Findings: alcohol opiate withdrawal sx Laboratory Last Values WBC 4.2 K/mm3 (4.0-10.0) 05/13/19 08:00 RBC 4.83 M/mm3 (4.00-5.60) 05/13/19 08:00 Hgb 13.9 GM/dL (11.7-16.9) 05/13/19 08:00 Hct 40.9 % (35.4-49) 05/13/19 08:00 MCV 84.7 fl (80-96) 05/13/19 08:00 MCH 28.9 pg (25.7-33.7) 05/13/19 08:00 MCHC 34.1 g/dl (32.0-35.9) 05/13/19 08:00 RDW 14.6 % (11.9-15.9) 05/13/19 08:00 Plt Count 168 K/MM3 (134-434) 05/13/19 08:00 MPV 8.2 fl (7.5-11.1) 05/13/19 08:00 Sodium 137 mmol/L (136-145) 05/13/19 08:00 Potassium 4.2 mmol/L (3.5-5.1) 05/13/19 08:00 Chloride 104 mmol/L (98-107) 05/13/19 08:00 Carbon Dioxide 27 mmol/L (21-32) 05/13/19 08:00 Anion Gap 6 MMOL/L (8-16) L 05/13/19 08:00 BUN 12.0 mg/dL (7-18) 05/13/19 08:00 Creatinine 0.8 mg/dL (0.55-1.3) 05/13/19 08:00 Est GFR (CKD-EPI)AfAm 114.93 05/13/19 08:00 Est GFR (CKD-EPI)NonAf 99.16 05/13/19 08:00 Random Glucose 83 mg/dL (74-106) 05/13/19 08:00 Calcium 9.0 mg/dL (8.5-10.1) 05/13/19 08:00 Total Bilirubin 0.9 mg/dL (0.2-1) 05/13/19 08:00 AST 50 U/L (15-37) H 05/13/19 08:00 ALT 72 U/L (13-61) H 05/13/19 08:00 Alkaline Phosphatase 117 U/L (45-117) 05/13/19 08:00 Total Protein 7.9 g/dl (6.4-8.2) 05/13/19 08:00 Albumin 3.3 g/dl (3.4-5.0) L 05/13/19 08:00 RPR Titer Nonreactive (NONREACTIVE) 05/13/19 08:00 lab noted Vital Signs Temperature 98.0 F 05/17/19 09:05 Pulse Rate 70 05/17/19 09:05 Respiratory Rate 16 05/17/19 09:05 Blood Pressure 93/56 L 05/17/19 09:05 O2 Sat by Pulse Oximetry (%) - Treatment Hospital Course: Detox Protocol Followed, Detoxed Safely, Responded well, Discharged Condition Good, Rehab Referral Accepted Patient has Accepted a [facility] Referral [facility]: [facility] - Medication Discharge Medications: Ambulatory Orders Naloxone HCl [Narcan] 4 mg NS ASDIR PRN #1 spray 05/13/19 - Diagnosis (1) Nicotine dependence Current Visit: Yes Status: Acute Qualifiers: Nicotine product type: cigarettes Substance use status: in withdrawal Qualified Code(s): F17.213 - Nicotine dependence, cigarettes, with withdrawal (2) Opioid dependence with withdrawal Current Visit: Yes Status: Acute (3) Underweight Current Visit: Yes Status: Acute (4) 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 Qualifiers: Right eye visual impairment category: right - unspecified blindness Qualified Code(s): H54.3 - Unqualified visual loss, both eyes (5) Hepatitis C Current Visit: Yes Status: Chronic Qualifiers: Viral hepatitis chronicity: chronic Hepatic coma status: without hepatic coma Qualified Code(s): B18.2 - Chronic viral hepatitis C (6) Positive PPD Current Visit: Yes Status: Resolved (7) Substance induced mood disorder Current Visit: Yes Status: Suspected (8) Alcohol dependence with uncomplicated withdrawal Current Visit: Yes Status: Acute - AMA Did Patient Leave Against Medical Advice: No CIWA Score - CIWA Score Nausea/Vomitin-No Nausea/No Vomiting Muscle Tremors: 1-None Visible, but [place] Anxiety: 0-No Anxiety, at Ease Agitation: 0-Normal Activity Paroxysmal Sweats: No Perspiration Orientation: 0-Oriented Tacttile Disturbances: 0-None Auditory Disturbances: 0-None Visual Disturbances: 0-None Headache: 0-None Present CIWA-Ar Total Score: 1 COWS (PN) - Opiate Withdrawal Resting Pulse: 0= [place] 80 or Below Sweatin= Chills/Flushing Restless Observation: 0= Sits Still Pupil Size: 0= Normal to Room Light Bone or Joint Aches: 0= None Runny Nose/ Eye Tearin= None GI Upset > 30mins: 0= None Tremor Observation of Outstretched Hands: 0= None Yawning Observation: 0= None Anxiety or Irritability: 0= None Goose Flesh Skin: 0=Smooth Skin COWS Score: 1
== END 2019-05-17 09:31 | disposition home or self-care (01) | DRG 897 ==
LOC: YASAS 14:14 → Y3N 18:00
PROVIDERS: ADMIT Allergy & Immunology; ATTEND Allergy & Immunology
PROC: HZ2ZZZZ Detoxification Services for Substance Abuse Treatment (ICD-10-PCS; principal; 2019-05-12)
DX: F10.230 Alcohol dependence with withdrawal, uncomplicated (principal); F14.20 Cocaine dependence, uncomplicated; F11.23 Opioid dependence with withdrawal; F17.213 Nicotine dependence, cigarettes, with withdrawal; F19.24 Other psychoactive substance dependence with psychoactive substance-induced mood disorder; F32.9 Major depressive disorder, single episode, unspecified; H54.62 Unqualified visual loss, left eye, normal vision right eye; B18.2 Chronic viral hepatitis C; R76.11 Nonspecific reaction to tuberculin skin test without active tuberculosis; R63.6 Underweight; Z68.21 Body mass index [BMI] 21.0-21.9, adult
CPT/HCPCS: 36415; 80053; 85027; 86593; 93005; 93010

== ENCOUNTER 2019-07-23 13:07 | Inpatient (IN) | payer OTHER ==
--- NOTE | 2019-07-23 13:37 | BHS.RME ---
Substance Use & Tx History - Substance Use History Alcohol Substance amount: 1/2 pint vodka Frequency of use: Less than 3 times per week Substance route: Oral Date of Last Use: 07/21/19 Opiates (Heroin) Substance amount: 12-15 bags Frequency of use: Daily Substance route: Injection (ex: intravenous or skin popping) Date of Last Use: 07/23/19 Physical/Psych/Mental Status - Behavior General Behavior: Increased activity (restlessness, agitation) Eye Contact: Normal - Cooperativeness Cooperativeness: Cooperative - Thinking Thought Processes: Tight, Logical, Goal Directed Thought content: Future oriented - Physical Health Problems Is patient presently having any pain?: No Does patient presently have any injuries (include location): No Does patient currently have a fever: No Is patient : No COWS - Scale Resting Pulse: 1= [place] 81-100 Sweatin= Chills/Flushing Restless Observation: 3= Extraneous Movement Pupil Size: 1= Pupils >than Normal Bone or Joint Aches: 1= Mild Discomfort Runny Nose/ Eye Tearin= Nasal Congestion GI Upset > 30mins: 1= Stomach Cramp Tremor Observation: 1= Tremor [place], Not Seen Yawning Observation: 1= 1-2x During Session Anxiety or Irritability: 2=Irritable/Anxious Goose Flesh Skin: 0=Smooth Skin COWS Score: 13
[2019-07-23 13:49] VITALS: BMI 21.9
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
[2019-07-23] MEDS ORDERED: cloNIDine HCL 0.1 MG TABLET PO PRN (14:30)
[2019-07-23] MEDS ORDERED: hydrOXYzine PAMOATE 25 MG CAPSULE (FP) PO PRN (14:30)
[2019-07-23] MEDS ORDERED: MAG HYDROX/AL HYDROX/SIMETH 30 ML UNIT-DOSE CUP PO PRN (14:30)
[2019-07-23] MEDS ORDERED: BISMUTH SUBSALICYLATE 262 MG/15 ML BTL PO PRN (14:30)
[2019-07-23] MEDS ORDERED: MAGNESIUM CITRATE 300 ML BOTTLE PO PRN (14:30)
[2019-07-23] MEDS ORDERED: METHOCARBAMOL 500 MG TABLET PO PRN (14:30)
[2019-07-23] MEDS ORDERED: MAGNESIUM HYDROX 2400MG/30ML ORAL SUSPENSION 30 ML CUP PO PRN (14:30)
[2019-07-23] MEDS ORDERED: ACETAMINOPHEN 325 MG TABLET (FP) PO PRN ×2 (14:30)
[2019-07-23] MEDS ORDERED: MELATONIN 5 MG TABLETS PO PRN (14:30)
[2019-07-23] MEDS ORDERED: IBUPROFEN 400 MG TABLET (FP) PO PRN (14:30)
[2019-07-23] MEDS ORDERED: MENTHOL/PHENOL 1 EACH UD MM PRN (14:30)
[2019-07-23] MEDS ORDERED: METHADONE HCL 10 MG TABLET (FOR DETOX USE ONLY) PO ONE (14:50)
[2019-07-23] MEDS: NICOTINE 7 MG/24 HOURS TOPICAL PATCH TD SCH (15:45)
[2019-07-23 16:53] LABS: HEMATOCRIT 38.7 % (35.4-49); HEMOGLOBIN 13.2 GM/dL (11.7-16.9); MCH 28.9 pg (25.7-33.7); MCHC 34.2 g/dl (32.0-35.9); MEAN CELL VOLUME 84.5 fl (80-96); MEAN PLT VOLUME 7.9 fl (7.5-11.1); PLATELET COUNT 187 K/MM3 (134-434); RBC 4.58 M/mm3 (4.00-5.60); RDW 14.6 % (11.9-15.9)
[2019-07-23 17:14] LABS: ALBUMIN 3.5 g/dl (3.4-5.0); BILIRUBIN,TOTAL 0.8 mg/dL (0.2-1); BLOOD UREA NITROGEN 9.8 mg/dL (7-18); CALCIUM 9.3 mg/dL (8.5-10.1); CREATININE 0.9 mg/dL (0.55-1.3); POTASSIUM 4.6 mmol/L (3.5-5.1); TOT PROT 8.5 g/dl (6.4-8.2)
[2019-07-23] MEDS: THIAMINE HCL 100 MG TABLET (FP) PO SCH (22:37)
[2019-07-24] MEDS ORDERED: METHADONE (DETOX) 20 MG, METHADONE (DETOX) 5 MG PO ONE (10:00)
[2019-07-24] MEDS ORDERED: METHADONE HCL 10 MG TABLET (FOR DETOX USE ONLY) ONE (10:13)
[2019-07-24] MEDS ORDERED: METHADONE HCL 5 MG TABLET (FOR DETOX USE ONLY) ONE (10:13)
[2019-07-24] MEDS: NICOTINE 7 MG/24 HOURS TOPICAL PATCH TD SCH (11:12)
[2019-07-24] MEDS: PRENATAL VITAMINS W/ FOLIC ACID TABLET (FP) PO SCH (11:12)
--- NOTE | 2019-07-24 11:50 | PN ---
BHS COWS - Scale Resting Pulse: 1= [place] 81-100 Sweatin= Chills/Flushing Restless Observation: 3= Extraneous Movement Pupil Size: 1= Pupils >than Normal Bone or Joint Aches: 1= Mild Discomfort Runny Nose/ Eye Tearin= Nasal Congestion GI Upset > 30mins: 1= Stomach Cramp Tremor Observation of Outstretched Hands: 1= Tremor [place], Not Seen Yawning Observation: 0= None Anxiety or Irritability: 1=Feels Anxious/Irritable Goose Flesh Skin: 0=Smooth Skin COWS Score: 11 BHS Progress Note (SOAP) Subjective: pt admitted yesterday for OUD. would like seroquel- needs to see , on methadone O: Vital Signs - 24 hr 07/23/19 07/23/19 07/23/19 13:46 17:00 22:42 Temperature 97.7 F 98.2 F 98.2 F Pulse Rate 92 H 88 71 Respiratory 18 18 17 Rate Blood Pressure 103/67 98/70 102/65 07/24/19 07/24/19 07/24/19 00:43 04:28 05:52 Temperature 97.3 F L Pulse Rate 59 L Respiratory 16 16 18 Rate Blood Pressure 106/58 L 07/24/19 10:01 Temperature 97.9 F Pulse Rate 94 H Respiratory 18 Rate Blood Pressure 103/67 Laboratory Tests 07/23/19 07/23/19 07/23/19 15:05 15:05 15:05 WBC 5.0 RBC 4.58 Hgb 13.2 Hct 38.7 MCV 84.5 MCH 28.9 MCHC 34.2 RDW 14.6 Plt Count 187 MPV 7.9 Sodium 135 L Potassium 4.6 Chloride 104 Carbon Dioxide 27 Anion Gap 5 L BUN 9.8 Creatinine 0.9 Est GFR (CKD-EPI)AfAm 109.50 Est GFR (CKD-EPI)NonAf 94.48 Random Glucose 63 L Calcium 9.3 Total Bilirubin 0.8 AST 42 H ALT 44 Alkaline Phosphatase 116 Total Protein 8.5 H Albumin 3.5 RPR Titer Nonreactive a/p OUD- on 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
[2019-07-24] MEDS ORDERED: NALOXONE HCL 0.4 MG/ML VIAL IM PRN (11:52)
[2019-07-24] MEDS ORDERED: clonazePAM 0.5 MG TABLET PO PRN (11:52)
[2019-07-24] MEDS ORDERED: cloNIDine HCL 0.1 MG TABLET PO PRN (11:52)
[2019-07-24] MEDS ORDERED: traZODone HCL 50 MG TABLET (FP) PO PRN (13:12)
[2019-07-24] MEDS: THIAMINE HCL 100 MG TABLET (FP) PO SCH (22:49)
[2019-07-25] MEDS ORDERED: METHADONE HCL 10 MG TABLET (FOR DETOX USE ONLY) PO ONE (10:00)
[2019-07-25] MEDS: PRENATAL VITAMINS W/ FOLIC ACID TABLET (FP) PO SCH (10:56)
[2019-07-25] MEDS: NICOTINE 7 MG/24 HOURS TOPICAL PATCH TD SCH (10:57)
--- NOTE | 2019-07-25 12:59 | PN ---
BHS COWS - Scale Resting Pulse: 1= [place] 81-100 Sweatin=Flushed/Facial Moisture Restless Observation: 0= Sits Still Pupil Size: 0= Normal to Room Light Bone or Joint Aches: 2= Severe Diffuse Aches Runny Nose/ Eye Tearin= None GI Upset > 30mins: 2= Nausea/Diarrhea Tremor Observation of Outstretched Hands: 1= Tremor [place], Not Seen Yawning Observation: 0= None Anxiety or Irritability: 2=Irritable/Anxious Goose Flesh Skin: 0=Smooth Skin COWS Score: 10 BHS Progress Note (SOAP) Subjective: Patient admitted for opiod withdrawal sx. He complains of chills, sweats, nausea and anxiety. Objective: 07/25/19 12:59 Laboratory Tests 07/23/19 07/23/19 07/23/19 15:05 15:05 15:05 WBC 5.0 RBC 4.58 Hgb 13.2 Hct 38.7 MCV 84.5 MCH 28.9 MCHC 34.2 RDW 14.6 Plt Count 187 MPV 7.9 Sodium 135 L Potassium 4.6 Chloride 104 Carbon Dioxide 27 Anion Gap 5 L BUN 9.8 Creatinine 0.9 Est GFR (CKD-EPI)AfAm 109.50 Est GFR (CKD-EPI)NonAf 94.48 Random Glucose 63 L Calcium 9.3 Total Bilirubin 0.8 AST 42 H ALT 44 Alkaline Phosphatase 116 Total Protein 8.5 H Albumin 3.5 RPR Titer Nonreactive Vital Signs Temperature 98.2 F 07/25/19 11:43 Pulse Rate 91 H 07/25/19 11:43 Respiratory Rate 17 07/25/19 11:43 Blood Pressure 97/61 07/25/19 11:43 O2 Sat by Pulse Oximetry (%) PE alert and oriented x 3 skin warm, mild moisture to forehead +perrla, eoms intact bl gi nt, nd ext full rom, amb ad brenda mild tremors anxious Assessment: 07/25/19 13:00 Opiod withdrawal sx Plan: continue detox
[2019-07-25] MEDS: THIAMINE HCL 100 MG TABLET (FP) PO SCH (23:06)
--- NOTE | 2019-07-26 09:22 | PN ---
BHS COWS - Scale Resting Pulse: 0= [place] 80 or Below Sweatin= No chills or Flushing Restless Observation: 1= Difficult to Sit Still Pupil Size: 1= Pupils >than Normal Bone or Joint Aches: 1= Mild Discomfort Runny Nose/ Eye Tearin= Nasal Congestion GI Upset > 30mins: 1= Stomach Cramp Tremor Observation of Outstretched Hands: 1= Tremor [place], Not Seen Yawning Observation: 1= 1-2x During Session Anxiety or Irritability: 2=Irritable/Anxious Goose Flesh Skin: 0=Smooth Skin COWS Score: 9 BHS Progress Note (SOAP) Subjective: alert,irritable,anxious,interrupted sleep,pain in the body Objective: 07/26/19 09:21 Vital Signs Temperature 98.2 F 07/25/19 20:47 Pulse Rate 91 H 07/25/19 20:47 Respiratory Rate 18 07/26/19 03:37 Blood Pressure 108/62 07/25/19 20:47 O2 Sat by Pulse Oximetry (%) Assessment: 07/26/19 09:21 withdrawal symptom Plan: continue detox methadone regimen
--- NOTE | 2019-07-26 09:28 | DS ---
[facility] Detox Discharge Summary Admission Date: 07/23/19 Discharge Date: 07/26/19 - History Present History: Opioid Dependence Additional Comments: patient did not want to complete treatment,all attempts to convince patient to stay with no avail,high risks of relapsing explained,understood, sgned release amella,seen by counselor,advise to call 911 if not feeling well alert,oriented x 3 ambulationon the unit heart normal heart sound lung clear,bilaterally no abdominal pain time spending on discharge 35 mins - Physical Exam Results Vital Signs: Vital Signs Temperature 98.2 F 07/25/19 20:47 Pulse Rate 91 H 07/25/19 20:47 Respiratory Rate 18 07/26/19 03:37 Blood Pressure 108/62 07/25/19 20:47 O2 Sat by Pulse Oximetry (%) Pertinent Admission Physical Exam Findings: withdraw Laboratory Last Values WBC 5.0 K/mm3 (4.0-10.0) 07/23/19 15:05 RBC 4.58 M/mm3 (4.00-5.60) 07/23/19 15:05 Hgb 13.2 GM/dL (11.7-16.9) 07/23/19 15:05 Hct 38.7 % (35.4-49) 07/23/19 15:05 MCV 84.5 fl (80-96) 07/23/19 15:05 MCH 28.9 pg (25.7-33.7) 07/23/19 15:05 MCHC 34.2 g/dl (32.0-35.9) 07/23/19 15:05 RDW 14.6 % (11.9-15.9) 07/23/19 15:05 Plt Count 187 K/MM3 (134-434) 07/23/19 15:05 MPV 7.9 fl (7.5-11.1) 07/23/19 15:05 Sodium 135 mmol/L (136-145) L 07/23/19 15:05 Potassium 4.6 mmol/L (3.5-5.1) 07/23/19 15:05 Chloride 104 mmol/L (98-107) 07/23/19 15:05 Carbon Dioxide 27 mmol/L (21-32) 07/23/19 15:05 Anion Gap 5 MMOL/L (8-16) L 07/23/19 15:05 BUN 9.8 mg/dL (7-18) 07/23/19 15:05 Creatinine 0.9 mg/dL (0.55-1.3) 07/23/19 15:05 Est GFR (CKD-EPI)AfAm 109.50 07/23/19 15:05 Est GFR (CKD-EPI)NonAf 94.48 07/23/19 15:05 Random Glucose 63 mg/dL (74-106) L 07/23/19 15:05 Calcium 9.3 mg/dL (8.5-10.1) 07/23/19 15:05 Total Bilirubin 0.8 mg/dL (0.2-1) 07/23/19 15:05 AST 42 U/L (15-37) H 07/23/19 15:05 ALT 44 U/L (13-61) 07/23/19 15:05 Alkaline Phosphatase 116 U/L (45-117) 07/23/19 15:05 Total Protein 8.5 g/dl (6.4-8.2) H 07/23/19 15:05 Albumin 3.5 g/dl (3.4-5.0) 07/23/19 15:05 RPR Titer Nonreactive (NONREACTIVE) 07/23/19 15:05 al signs and symptom Vital Signs Temperature 98.2 F 07/25/19 20:47 Pulse Rate 91 H 07/25/19 20:47 Respiratory Rate 18 07/26/19 03:37 Blood Pressure 108/62 07/25/19 20:47 O2 Sat by Pulse Oximetry (%) - Medication Discharge Medications: Ambulatory Orders NK [No Known Home Medication] 07/23/19 - Diagnosis (1) Nicotine dependence Current Visit: Yes Status: Acute Qualifiers: Nicotine product type: cigarettes Substance use status: in withdrawal Qualified Code(s): F17.213 - Nicotine dependence, cigarettes, with withdrawal (2) Opioid dependence with withdrawal Current Visit: Yes Status: Acute - AMA Did Patient Leave Against Medical Advice: Yes
[2019-07-26] MEDS ORDERED: METHADONE (DETOX) 10 MG, METHADONE (DETOX) 5 MG PO ONE (10:00)
[2019-07-26 11:06] VITALS: BP 117/79; PULSE 84; TEMP 97.9
[2019-07-27] MEDS ORDERED: METHADONE HCL 10 MG TABLET (FOR DETOX USE ONLY) PO ONE (10:00)
[2019-07-28] MEDS ORDERED: METHADONE HCL 5 MG TABLET (FOR DETOX USE ONLY) PO ONE (06:00)
== END 2019-07-26 09:55 | disposition left against medical advice (07) | DRG 894 ==
LOC: YASAS 13:07 → Y6N 14:40
PROVIDERS: ADMIT Allergy & Immunology; ATTEND Allergy & Immunology
PROC: HZ2ZZZZ Detoxification Services for Substance Abuse Treatment (ICD-10-PCS; principal; 2019-07-23)
DX: F11.23 Opioid dependence with withdrawal (principal); F10.230 Alcohol dependence with withdrawal, uncomplicated; F17.213 Nicotine dependence, cigarettes, with withdrawal; F32.9 Major depressive disorder, single episode, unspecified; G47.00 Insomnia, unspecified; B18.2 Chronic viral hepatitis C
CPT/HCPCS: 36415; 80053; 85027; 86593

== ENCOUNTER 2020-01-12 10:20 | Inpatient (IN) | payer OTHER ==
--- NOTE | 2020-01-12 11:40 | BHS.RME ---
Substance Use & Tx History - Substance Use History Alcohol Substance amount: one pint vodka Frequency of use: Daily Substance route: Oral Date of Last Use: 01/12/20 (First use age 18 y. No seizure or blackout. 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 NO Od. Has Narcan at home) Xanax Substance amount: 2 mg x 3 tabs Frequency of use: More than 3 times per week Substance route: Oral Date of Last Use: 01/11/20 (First use age 58 y) Nicotine Substance amount: 10 cigs Frequency of use: Daily Substance route: Smoking Date of Last Use: 01/12/20 (First use age 17 y) Physical/Psych/Mental Status - Behavior General Behavior: Increased activity (restlessness, agitation) Eye Contact: Normal - Cooperativeness Cooperativeness: Cooperative - Thinking Thought Processes: Tight Thought content: Future oriented - Physical Health Problems Is patient presently having any pain?: Yes (withdrawal back pain) Does patient presently have any injuries (include location): No Does patient currently have a fever: No COWS - Scale Resting Pulse: 0= [place] 80 or Below Sweatin= Chills/Flushing Restless Observation: 1= Difficult to Sit Still Pupil Size: 0= Normal to Room Light Bone or Joint Aches: 1= Mild Discomfort Runny Nose/ Eye Tearin= Runny Nose/Eyes GI Upset > 30mins: 2= Nausea/Diarrhea Tremor Observation: 1= Tremor [place], Not Seen Yawning Observation: 1= 1-2x During Session Anxiety or Irritability: 2=Irritable/Anxious Goose Flesh Skin: 0=Smooth Skin COWS Score: 11 CIWA Nausea/Vomitin-Mild Nausea/No Vomiting Muscle Tremors: 2 Anxiety: 3 Agitation: 2 Paroxysmal Sweats: 1-Minimal Palms Moist Orientation: 0-Oriented Tacttile Disturbances: 0-None Auditory Disturbances: 2-Mild Harshness/Frighten Visual Disturbances: 0-None Headache: 0-None Present CIWA-Ar Total Score: 11
[2020-01-12 13:01] VITALS: BMI 20.7
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
[2020-01-12] MEDS ORDERED: BISMUTH SUBSALICYLATE 524 MG/30 ML UD PO PRN (13:14)
[2020-01-12] MEDS ORDERED: ACETAMINOPHEN 325 MG TABLET (FP) PO PRN ×2 (13:14)
[2020-01-12] MEDS ORDERED: METHOCARBAMOL 500 MG TABLET PO PRN (13:14)
[2020-01-12] MEDS ORDERED: MENTHOL/PHENOL 1 EACH UD MM PRN (13:14)
[2020-01-12] MEDS ORDERED: ONDANSETRON *ODT* 4 MG TABLET SL ONE (13:14)
[2020-01-12] MEDS ORDERED: IBUPROFEN 400 MG TABLET (FP) PO PRN (13:14)
[2020-01-12] MEDS ORDERED: MAG HYDROX/AL HYDROX/SIMETH 30 ML UNIT-DOSE CUP PO PRN (13:14)
[2020-01-12] MEDS ORDERED: chlordiazePOXIDE HCL 25 MG CAPSULE PO PRN (13:14)
[2020-01-12] MEDS ORDERED: MAGNESIUM HYDROX 2400MG/30ML ORAL SUSPENSION 30 ML CUP PO PRN (13:14)
[2020-01-12] MEDS ORDERED: MAGNESIUM CITRATE 300 ML BOTTLE PO PRN (13:14)
[2020-01-12] MEDS ORDERED: cloNIDine HCL 0.1 MG TABLET PO PRN (13:14)
[2020-01-12] MEDS ORDERED: NICOTINE POLACRILEX 2 MG GUM BUC PRN (13:14)
[2020-01-12] MEDS ORDERED: METHADONE HCL 10 MG TABLET (FOR DETOX USE ONLY) PO ONE (14:00)
[2020-01-12] MEDS: NICOTINE 7 MG/24 HOURS TOPICAL PATCH TD SCH (15:31)
[2020-01-12] MEDS: PRENATAL VITAMINS W/ FOLIC ACID TABLET (FP) PO SCH (15:32)
[2020-01-12] MEDS: chlordiazePOXIDE HCL 25 MG CAPSULE PO SCH ×3 (15:32→22:05)
[2020-01-12] MEDS: hydrOXYzine PAMOATE 25 MG CAPSULE (FP) PO SCH ×3 (15:33→22:05)
[2020-01-12 17:50] LABS: HEMATOCRIT 39.3 % (35.4-49); HEMOGLOBIN 13.2 GM/dL (11.7-16.9); MCH 28.7 pg (25.7-33.7); MCHC 33.7 g/dl (32.0-35.9); MEAN CELL VOLUME 85.3 fl (80-96); MEAN PLT VOLUME 8.7 fl (7.5-11.1); PLATELET COUNT 147 K/MM3 (134-434); RBC 4.61 M/mm3 (4.00-5.60); RDW 17.2 % (11.9-15.9); WHITE BLOOD COUNT 4.5 K/mm3 (4.0-10.0)
[2020-01-12 17:54] LABS: ALBUMIN 3.6 g/dl (3.4-5.0); BILIRUBIN,TOTAL 0.4 mg/dL (0.2-1); BLOOD UREA NITROGEN 12.1 mg/dL (7-18); CALCIUM 9.8 mg/dL (8.5-10.1); CREATININE 0.9 mg/dL (0.55-1.3); POTASSIUM 4.7 mmol/L (3.5-5.1); TOT PROT 8.8 g/dl (6.4-8.2)
[2020-01-12] MEDS: MELATONIN 5 MG TABLETS PO SCH (22:05)
[2020-01-12] MEDS: THIAMINE HCL 100 MG TABLET (FP) PO SCH (22:05)
[2020-01-13] MEDS: hydrOXYzine PAMOATE 25 MG CAPSULE (FP) PO SCH ×5 (05:09→22:19)
[2020-01-13] MEDS: chlordiazePOXIDE HCL 25 MG CAPSULE PO SCH (05:09)
[2020-01-13] MEDS ORDERED: LORazepam 1 MG TABLET PO PRN (09:22)
[2020-01-13] MEDS ORDERED: METHADONE HCL 10 MG TABLET (FOR DETOX USE ONLY) ONE (09:36)
[2020-01-13] MEDS ORDERED: METHADONE HCL 5 MG TABLET (FOR DETOX USE ONLY) ONE (09:36)
[2020-01-13] MEDS ORDERED: METHADONE (DETOX) 20 MG, METHADONE (DETOX) 5 MG PO ONE (10:00)
[2020-01-13] MEDS: PRENATAL VITAMINS W/ FOLIC ACID TABLET (FP) PO SCH (10:06)
[2020-01-13] MEDS: NICOTINE 7 MG/24 HOURS TOPICAL PATCH TD SCH (10:07)
[2020-01-13] MEDS: LORazepam 2 MG TABLET PO SCH ×3 (10:09→22:19)
--- NOTE | 2020-01-13 10:24 | PN ---
S CIWA - CIWA Score Nausea/Vomitin Muscle Tremors: 2 Anxiety: 2 Agitation: 2 Paroxysmal Sweats: No Perspiration Orientation: 0-Oriented Tacttile Disturbances: 1-Very Mild Itch/Numbness Auditory Disturbances: 0-None Visual Disturbances: 0-None Headache: 2-Mild CIWA-Ar Total Score: 11 BHS COWS - Scale Resting Pulse: 0= [place] 80 or Below Sweatin= No chills or Flushing Restless Observation: 0= Sits Still Pupil Size: 1= Pupils >than Normal Bone or Joint Aches: 2= Severe Diffuse Aches Runny Nose/ Eye Tearin= Nasal Congestion GI Upset > 30mins: 2= Nausea/Diarrhea Tremor Observation of Outstretched Hands: 2= Slight Tremor Visible Yawning Observation: 1= 1-2x During Session Anxiety or Irritability: 2=Irritable/Anxious Goose Flesh Skin: 0=Smooth Skin COWS Score: 11 [facility] Progress Note (SOAP) Subjective: alert,irritable,anxious,interrupted sleep,aching pain in the body and back ,nausea Objective: 01/13/20 10:21 Vital Signs Temperature 96.9 F L 01/13/20 08:40 Pulse Rate 79 01/13/20 08:40 Respiratory Rate 18 01/13/20 08:40 Blood Pressure 87/58 L 01/13/20 08:40 O2 Sat by Pulse Oximetry (%) 99 01/13/20 06:12 Laboratory Last Values WBC 4.5 K/mm3 (4.0-10.0) 01/12/20 12:45 RBC 4.61 M/mm3 (4.00-5.60) 01/12/20 12:45 Hgb 13.2 GM/dL (11.7-16.9) 01/12/20 12:45 Hct 39.3 % (35.4-49) 01/12/20 12:45 MCV 85.3 fl (80-96) 01/12/20 12:45 MCH 28.7 pg (25.7-33.7) 01/12/20 12:45 MCHC 33.7 g/dl (32.0-35.9) 01/12/20 12:45 RDW 17.2 % (11.9-15.9) H 01/12/20 12:45 Plt Count 147 K/MM3 (134-434) D 01/12/20 12:45 MPV 8.7 fl (7.5-11.1) D 01/12/20 12:45 Sodium 138 mmol/L (136-145) 01/12/20 12:45 Potassium 4.7 mmol/L (3.5-5.1) 01/12/20 12:45 Chloride 105 mmol/L (98-107) 01/12/20 12:45 Carbon Dioxide 28 mmol/L (21-32) 01/12/20 12:45 Anion Gap 5 MMOL/L (8-16) L 01/12/20 12:45 BUN 12.1 mg/dL (7-18) 01/12/20 12:45 Creatinine 0.9 mg/dL (0.55-1.3) 01/12/20 12:45 Est GFR (CKD-EPI)AfAm 109.50 01/12/20 12:45 Est GFR (CKD-EPI)NonAf 94.48 01/12/20 12:45 Random Glucose 85 mg/dL (74-106) 01/12/20 12:45 Calcium 9.8 mg/dL (8.5-10.1) 01/12/20 12:45 Total Bilirubin 0.4 mg/dL (0.2-1) 01/12/20 12:45 AST 102 U/L (15-37) H 01/12/20 12:45 ALT 157 U/L (13-61) H 01/12/20 12:45 Alkaline Phosphatase 134 U/L (45-117) H 01/12/20 12:45 Total Protein 8.8 g/dl (6.4-8.2) H 01/12/20 12:45 Albumin 3.6 g/dl (3.4-5.0) 01/12/20 12:45 Syphilis Serology Non-reactive (NONREACTIVE) 01/12/20 12:45 COVID-19 ([facility]) Not detected (Not Detected) 01/12/20 14:10 elevation of alt,ast,alkaline phosphatase history of hepatitis c Assessment: 01/13/20 10:22 withdrawal symptom Plan: continue detox,regimen change to methadone and valium instead of methadone and librium,encourage oral fluid,close monitoring of vital sign, ativan on hold this morning due to low bp,will monitor vital signs closely
--- NOTE | 2020-01-13 10:27 | PN ---
BHS Progress Note Note: will repeat hepatic panel function and inr in am
[2020-01-13] MEDS: THIAMINE HCL 100 MG TABLET (FP) PO SCH (22:19)
[2020-01-13] MEDS: MELATONIN 5 MG TABLETS PO SCH (22:20)
[2020-01-14] MEDS ORDERED: chlordiazePOXIDE HCL 25 MG CAPSULE PO SCH (05:00)
[2020-01-14] MEDS: LORazepam 2 MG TABLET PO SCH ×4 (05:34→22:07)
[2020-01-14] MEDS: hydrOXYzine PAMOATE 25 MG CAPSULE (FP) PO SCH ×5 (05:34→22:07)
[2020-01-14] MEDS ORDERED: METHADONE HCL 10 MG TABLET (FOR DETOX USE ONLY) PO ONE (10:00)
[2020-01-14] MEDS: NICOTINE 7 MG/24 HOURS TOPICAL PATCH TD SCH (10:11)
[2020-01-14] MEDS: PRENATAL VITAMINS W/ FOLIC ACID TABLET (FP) PO SCH (10:11)
--- NOTE | 2020-01-14 10:42 | PN ---
S CIWA - CIWA Score Nausea/Vomitin-Mild Nausea/No Vomiting Muscle Tremors: 2 Anxiety: 2 Agitation: 2 Paroxysmal Sweats: No Perspiration Orientation: 0-Oriented Tacttile Disturbances: 1-Very Mild Itch/Numbness Auditory Disturbances: 0-None Visual Disturbances: 0-None Headache: 1-Very Mild CIWA-Ar Total Score: 9 [facility] Progress Note (SOAP) Subjective: alert,irritable,anxious,interrupted sleep,nausea,tremor Objective: 01/14/20 10:39 Vital Signs Temperature 97.3 F L 01/14/20 08:38 Pulse Rate 76 01/14/20 08:38 Respiratory Rate 18 01/14/20 08:38 Blood Pressure 93/62 01/14/20 08:38 O2 Sat by Pulse Oximetry (%) 98 01/14/20 05:30 01/14/20 10:40 repeat hepatic function and inr pending 01/14/20 10:46 Assessment: 01/14/20 10:41 withdrawal symptom Plan: continue detox methadone and ativan regimen,fluid,vital sings monitoring
[2020-01-14 11:01] LABS: INR 1.08 (0.83-1.09); PROTHROMBIN TIME (PATIENT) 12.8 SEC (9.7-13.0)
[2020-01-14 11:08] LABS: ALBUMIN 3.2 g/dl (3.4-5.0); BILIRUBIN,DIRECT 0.2 mg/dL (0.0-0.2); BILIRUBIN,TOTAL 0.4 mg/dL (0.2-1); TOT PROT 7.7 g/dl (6.4-8.2)
[2020-01-14] MEDS: MELATONIN 5 MG TABLETS PO SCH (22:07)
[2020-01-14] MEDS: THIAMINE HCL 100 MG TABLET (FP) PO SCH (22:07)
[2020-01-15] MEDS ORDERED: chlordiazePOXIDE HCL 10 MG CAPSULE PO PRN
[2020-01-15] MEDS ORDERED: chlordiazePOXIDE HCL 10 MG CAPSULE PO SCH (05:00)
[2020-01-15] MEDS: hydrOXYzine PAMOATE 25 MG CAPSULE (FP) PO SCH ×5 (05:02→22:09)
[2020-01-15] MEDS: LORazepam 1 MG TABLET PO SCH ×4 (05:02→22:09)
[2020-01-15] MEDS ORDERED: METHADONE HCL 10 MG TABLET (FOR DETOX USE ONLY) ONE (08:49)
[2020-01-15] MEDS ORDERED: METHADONE HCL 5 MG TABLET (FOR DETOX USE ONLY) ONE (08:49)
[2020-01-15] MEDS ORDERED: METHADONE (DETOX) 10 MG, METHADONE (DETOX) 5 MG PO ONE (10:00)
[2020-01-15] MEDS: PRENATAL VITAMINS W/ FOLIC ACID TABLET (FP) PO SCH (10:53)
[2020-01-15] MEDS: NICOTINE 7 MG/24 HOURS TOPICAL PATCH TD SCH (10:55)
--- NOTE | 2020-01-15 11:05 | PN ---
[facility] CIWA - CIWA Score Nausea/Vomitin-No Nausea/No Vomiting Muscle Tremors: 2 Anxiety: 2 Agitation: 0-Normal Activity Paroxysmal Sweats: 2 Orientation: 0-Oriented Tacttile Disturbances: 0-None Auditory Disturbances: 0-None Visual Disturbances: 0-None Headache: 1-Very Mild CIWA-Ar Total Score: 7 S COWS - Scale Resting Pulse: 0= [place] 80 or Below Sweatin= Beads of Sweat on Face Restless Observation: 1= Difficult to Sit Still Pupil Size: 0= Normal to Room Light Bone or Joint Aches: 0= None Runny Nose/ Eye Tearin= None GI Upset > 30mins: 0= None Tremor Observation of Outstretched Hands: 0= None Yawning Observation: 1= 1-2x During Session Anxiety or Irritability: 2=Irritable/Anxious Goose Flesh Skin: 0=Smooth Skin COWS Score: 7 [facility] Progress Note (SOAP) Subjective: c/o sweats, anxiety, irritability, and headache. Objective: 01/15/20 11:13 Vital Signs 01/15/20 01/15/20 01/15/20 06:29 08:34 10:48 Temperature 96.8 F L 97.3 F L Pulse Rate 69 83 83 Respiratory 18 18 18 Rate Blood Pressure 107/68 85/59 L 93/65 O2 Sat by Pulse 99 Oximetry (%) Laboratory Last Values WBC 4.5 K/mm3 (4.0-10.0) 01/12/20 12:45 RBC 4.61 M/mm3 (4.00-5.60) 01/12/20 12:45 Hgb 13.2 GM/dL (11.7-16.9) 01/12/20 12:45 Hct 39.3 % (35.4-49) 01/12/20 12:45 MCV 85.3 fl (80-96) 01/12/20 12:45 MCH 28.7 pg (25.7-33.7) 01/12/20 12:45 MCHC 33.7 g/dl (32.0-35.9) 01/12/20 12:45 RDW 17.2 % (11.9-15.9) H 01/12/20 12:45 Plt Count 147 K/MM3 (134-434) D 01/12/20 12:45 MPV 8.7 fl (7.5-11.1) D 01/12/20 12:45 PT with INR 12.80 SEC (9.7-13.0) 01/14/20 08:00 INR 1.08 (0.83-1.09) 01/14/20 08:00 Sodium 138 mmol/L (136-145) 01/12/20 12:45 Potassium 4.7 mmol/L (3.5-5.1) 01/12/20 12:45 Chloride 105 mmol/L (98-107) 01/12/20 12:45 Carbon Dioxide 28 mmol/L (21-32) 01/12/20 12:45 Anion Gap 5 MMOL/L (8-16) L 01/12/20 12:45 BUN 12.1 mg/dL (7-18) 01/12/20 12:45 Creatinine 0.9 mg/dL (0.55-1.3) 01/12/20 12:45 Est GFR (CKD-EPI)AfAm 109.50 01/12/20 12:45 Est GFR (CKD-EPI)NonAf 94.48 01/12/20 12:45 Random Glucose 85 mg/dL (74-106) 01/12/20 12:45 Calcium 9.8 mg/dL (8.5-10.1) 01/12/20 12:45 Total Bilirubin 0.4 mg/dL (0.2-1) 01/14/20 07:30 Direct Bilirubin 0.2 mg/dL (0.0-0.2) 01/14/20 07:30 AST 108 U/L (15-37) H 01/14/20 07:30 ALT 154 U/L (13-61) H 01/14/20 07:30 Alkaline Phosphatase 123 U/L (45-117) H 01/14/20 07:30 Total Protein 7.7 g/dl (6.4-8.2) 01/14/20 07:30 Albumin 3.2 g/dl (3.4-5.0) L 01/14/20 07:30 Syphilis Serology Non-reactive (NONREACTIVE) 01/12/20 12:45 COVID-19 ([facility]) Not detected (Not Detected) 01/12/20 14:10 Labs noted. Assessment: 01/15/20 11:14 AOX3 and in no acute respiratory distress. Full ROM, ambulating in the unit. Withdrawal symptoms. Plan: continue detox.
[2020-01-15] MEDS: THIAMINE HCL 100 MG TABLET (FP) PO SCH (22:09)
[2020-01-15] MEDS: MELATONIN 5 MG TABLETS PO SCH (22:09)
[2020-01-16] MEDS ORDERED: LORazepam 0.5 MG TABLET PO PRN
[2020-01-16] MEDS ORDERED: chlordiazePOXIDE HCL 10 MG CAPSULE PO SCH (05:00)
[2020-01-16] MEDS: hydrOXYzine PAMOATE 25 MG CAPSULE (FP) PO SCH ×3 (05:09→13:52)
[2020-01-16] MEDS: LORazepam 0.5 MG TABLET PO SCH ×2 (05:09→10:14)
--- NOTE | 2020-01-16 09:00 | PN ---
[facility] CIWA - CIWA Score Nausea/Vomitin-No Nausea/No Vomiting Muscle Tremors: 1-None Visible, but [place] Anxiety: 1-Mildly Anxious Agitation: 0-Normal Activity Paroxysmal Sweats: 1-Minimal Palms Moist Orientation: 0-Oriented Tacttile Disturbances: 0-None Auditory Disturbances: 0-None Visual Disturbances: 0-None Headache: 1-Very Mild CIWA-Ar Total Score: 4 [facility] COWS - Scale Resting Pulse: 0= [place] 80 or Below Sweatin= No chills or Flushing Restless Observation: 0= Sits Still Pupil Size: 0= Normal to Room Light Bone or Joint Aches: 1= Mild Discomfort Runny Nose/ Eye Tearin= None GI Upset > 30mins: 1= Stomach Cramp Tremor Observation of Outstretched Hands: 1= Tremor [place], Not Seen Yawning Observation: 0= None Anxiety or Irritability: 1=Feels Anxious/Irritable Goose Flesh Skin: 0=Smooth Skin COWS Score: 4 S Progress Note (SOAP) Subjective: 59 years old male admitted on 01/12/20 for alcohol benzo opiate withdrawal sx management treating with ativan and methadone detox regiments feeling better today ate breakfast resting in bed encourage mr saha to consider medication assisted treatment program 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 upon discharge from detox Objective: 01/16/20 09:01 Vital Signs - 24 hr 01/15/20 01/15/20 01/15/20 10:48 12:47 16:37 Temperature 97.3 F L 97.1 F L Pulse Rate 83 81 72 Respiratory 18 16 18 Rate Blood Pressure 93/65 93/57 L 95/64 O2 Sat by Pulse 97 Oximetry (%) 01/15/20 01/16/20 20:41 05:43 Temperature 97.5 F L 97.1 F L Pulse Rate 79 60 Respiratory 18 18 Rate Blood Pressure 93/65 98/58 L O2 Sat by Pulse 96 96 Oximetry (%) Laboratory Tests 01/12/20 01/12/20 01/12/20 12:45 12:45 12:45 WBC 4.5 RBC 4.61 Hgb 13.2 Hct 39.3 MCV 85.3 MCH 28.7 MCHC 33.7 RDW 17.2 H Plt Count 147 D MPV 8.7 D PT with INR INR Sodium 138 Potassium 4.7 Chloride 105 Carbon Dioxide 28 Anion Gap 5 L BUN 12.1 Creatinine 0.9 Est GFR (CKD-EPI)AfAm 109.50 Est GFR (CKD-EPI)NonAf 94.48 Random Glucose 85 Calcium 9.8 Total Bilirubin 0.4 Direct Bilirubin AST 102 H ALT 157 H Alkaline Phosphatase 134 H Total Protein 8.8 H Albumin 3.6 Syphilis Serology Non-reactive COVID-19 ([facility]) 01/12/20 01/14/20 01/14/20 14:10 07:30 08:00 WBC RBC Hgb Hct MCV MCH MCHC RDW Plt Count MPV PT with INR 12.80 INR 1.08 Sodium Potassium Chloride Carbon Dioxide Anion Gap BUN Creatinine Est GFR (CKD-EPI)AfAm Est GFR (CKD-EPI)NonAf Random Glucose Calcium Total Bilirubin 0.4 Direct Bilirubin 0.2 AST 108 H ALT 154 H Alkaline Phosphatase 123 H Total Protein 7.7 Albumin 3.2 L Syphilis Serology COVID-19 ([facility]) Not detected substanc induced liver enzyme elevation Assessment: 01/16/20 09:02 alcohol benzo opiate withdrawal Plan: ativan and methadone regiments
[2020-01-16] MEDS ORDERED: METHADONE HCL 10 MG TABLET (FOR DETOX USE ONLY) PO ONE (10:00)
[2020-01-16] MEDS: PRENATAL VITAMINS W/ FOLIC ACID TABLET (FP) PO SCH (10:14)
[2020-01-16] MEDS: NICOTINE 7 MG/24 HOURS TOPICAL PATCH TD SCH (10:14)
[2020-01-16 13:07] VITALS: BP 90/61; PULSE 104; TEMP 97.5
--- NOTE | 2020-01-16 13:49 | DS ---
[facility] Detox Discharge Summary Admission Date: 01/12/20 Discharge Date: 01/16/20 - History Present History: Alcohol Dependence, Opioid Dependence, Sedative Dependence Additional Comments: 59 years old male blind of left eye admitted on 01/12/20 for alcohol benzo opiate withdrawal sx management treated with ativan and methadone detox regiments * mr saha prefers leave the detox today instead of estimated discharge day of 01/17/20 * * mr saha is alert oriented x 3 speech clearly coherently ambulating with steady gaits * * General Appearance: Yes: Mild Distress, Tremorous, Irritable, Sweating, Anxious HEENTM: Yes: EOMI, Hearing grossly Normal, Normal ENT Inspection, Normocephalic, Normal Voice, Pharynx Normal, Tm's normal Respiratory: Yes: Chest Non-Tender, Lungs Clear, Normal Breath Sounds, No Respiratory Distress, No Accessory Muscle Use Neck: Yes: No masses,lesions,Nodules, Supple, Trachea in good position Breast: Yes: Within Normal Limits Cardiology: Yes: Regular Rhythm, Regular Rate, S1, S2 Abdominal: Yes: Normal Bowel Sounds, Non Tender, Flat, Soft Genitourinary: Yes: Within Normal Limits Back: Yes: Normal Inspection Musculoskeletal: Yes: full range of Motion, Gait Steady, Pelvis Stable Extremities: Yes: Normal Capillary Refill, Normal Inspection, Normal Range of Motion, Non-Tender Neurological: Yes: bath tester II-XII NML intact, Fully Oriented, Alert, Motor Strength 5/5, Normal Mood/Affect, Normal Response Integumentary: Yes: Normal Color, Dry, Warm Lymphatic: Yes: Within Normal Limits Pertinent Past History: time for discharge 46 minutes treatment team met with mr saha to discuss the benefits of ativan and methadone detox regiments completion mr saha insists to leave the detox today instead of estimated discharge date of 01/17/20 - Physical Exam Results Vital Signs: Vital Signs Temperature 97.5 F L 01/16/20 12:38 Pulse Rate 104 H 01/16/20 12:38 Respiratory Rate 20 01/16/20 12:38 Blood Pressure 90/61 01/16/20 12:38 O2 Sat by Pulse Oximetry (%) 100 01/16/20 12:38 Pertinent Admission Physical Exam Findings: alcohol benzo opiate withdrawal Laboratory Tests 01/12/20 01/12/20 01/12/20 12:45 12:45 12:45 WBC 4.5 RBC 4.61 Hgb 13.2 Hct 39.3 MCV 85.3 MCH 28.7 MCHC 33.7 RDW 17.2 H Plt Count 147 D MPV 8.7 D PT with INR INR Sodium 138 Potassium 4.7 Chloride 105 Carbon Dioxide 28 Anion Gap 5 L BUN 12.1 Creatinine 0.9 Est GFR (CKD-EPI)AfAm 109.50 Est GFR (CKD-EPI)NonAf 94.48 Random Glucose 85 Calcium 9.8 Total Bilirubin 0.4 Direct Bilirubin AST 102 H ALT 157 H Alkaline Phosphatase 134 H Total Protein 8.8 H Albumin 3.6 Syphilis Serology Non-reactive COVID-19 ([facility]) 01/12/20 01/14/20 01/14/20 14:10 07:30 08:00 WBC RBC Hgb Hct MCV MCH MCHC RDW Plt Count MPV PT with INR 12.80 INR 1.08 Sodium Potassium Chloride Carbon Dioxide Anion Gap BUN Creatinine Est GFR (CKD-EPI)AfAm Est GFR (CKD-EPI)NonAf Random Glucose Calcium Total Bilirubin 0.4 Direct Bilirubin 0.2 AST 108 H ALT 154 H Alkaline Phosphatase 123 H Total Protein 7.7 Albumin 3.2 L Syphilis Serology COVID-19 ([facility]) Not detected lab noted ast elevation will follow up with [facility] aftercare facility mr saha is under care of [facility] and will return for ast follow up - Treatment Hospital Course: Detox Protocol Followed, Detoxed Safely, Responded well, Discharged Condition Good, Rehab Referral Accepted Patient has Accepted a Rehab Referral to: [facility] - Medication Discharge Medications: Ambulatory Orders Naloxone HCl [Narcan] 4 mg NS ASDIR PRN #1 spray 01/16/20 - Diagnosis (1) Sedative, hypnotic or anxiolytic dependence, uncomplicated Status: Acute (2) Alcohol dependence with uncomplicated withdrawal Status: Acute (3) Nicotine dependence Status: Acute Qualifiers: Nicotine product type: cigarettes Substance use status: in withdrawal Qualified Code(s): F17.213 - Nicotine dependence, cigarettes, with withdrawal (4) Opioid dependence with withdrawal Status: Acute (5) Blindness of left eye Status: Chronic Qualifiers: Right eye visual impairment category: right - unspecified blindness Qualified Code(s): H54.3 - Unqualified visual loss, both eyes (6) Hepatitis C Status: Chronic Qualifiers: Viral hepatitis chronicity: chronic Hepatic coma status: without hepatic coma Qualified Code(s): B18.2 - Chronic viral hepatitis C (7) Weight loss Status: Chronic (8) Substance induced mood disorder Status: Suspected (9) PPD positive, treated Status: Resolved - AMA Did Patient Leave Against Medical Advice: No CIWA Score - CIWA Score Nausea/Vomitin-No Nausea/No Vomiting Muscle Tremors: 1-None Visible, but [place] Anxiety: 1-Mildly Anxious Agitation: 0-Normal Activity Paroxysmal Sweats: No Perspiration Orientation: 0-Oriented Tacttile Disturbances: 0-None Auditory Disturbances: 0-None Visual Disturbances: 0-None Headache: 1-Very Mild CIWA-Ar Total Score: 3 COWS (PN) - Opiate Withdrawal Resting Pulse: 2= [place] 101-120 Sweatin= No chills or Flushing Restless Observation: 0= Sits Still Pupil Size: 0= Normal to Room Light Bone or Joint Aches: 0= None Runny Nose/ Eye Tearin= None GI Upset > 30mins: 0= None Tremor Observation of Outstretched Hands: 1= Tremor [place], Not Seen Yawning Observation: 0= None Anxiety or Irritability: 1=Feels Anxious/Irritable Goose Flesh Skin: 0=Smooth Skin COWS Score: 4
[2020-01-17] MEDS ORDERED: LORazepam 0.5 MG TABLET PO ONE (05:00)
[2020-01-17] MEDS ORDERED: chlordiazePOXIDE HCL 10 MG CAPSULE PO ONE (05:00)
[2020-01-17] MEDS ORDERED: METHADONE HCL 5 MG TABLET (FOR DETOX USE ONLY) PO ONE (06:00)
== END 2020-01-16 14:05 | disposition home or self-care (01) | DRG 897 ==
LOC: YASAS 10:20 → Y3N 13:43
PROVIDERS: ADMIT Allergy & Immunology; ATTEND Allergy & Immunology
PROC: HZ2ZZZZ Detoxification Services for Substance Abuse Treatment (ICD-10-PCS; principal; 2020-01-12)
DX: F11.23 Opioid dependence with withdrawal (principal); F10.230 Alcohol dependence with withdrawal, uncomplicated; F13.230 Sedative, hypnotic or anxiolytic dependence with withdrawal, uncomplicated; F17.213 Nicotine dependence, cigarettes, with withdrawal; F19.24 Other psychoactive substance dependence with psychoactive substance-induced mood disorder; F32.9 Major depressive disorder, single episode, unspecified; H54.3 Unqualified visual loss, both eyes; H54.40 Blindness, one eye, unspecified eye; R63.4 Abnormal weight loss; R76.11 Nonspecific reaction to tuberculin skin test without active tuberculosis; B18.2 Chronic viral hepatitis C; R74.0 Nonspecific elevation of levels of transaminase and lactic acid dehydrogenase [LDH]; G47.00 Insomnia, unspecified
CPT/HCPCS: 36415; 71046-TC-FY; 80053; 80076; 85027; 85610; 86780; U0003

== ENCOUNTER 2020-02-20 11:01 | Inpatient (IN) | payer OTHER ==
--- NOTE | 2020-02-20 13:47 | BHS.RME ---
Substance Use & Tx History - Substance Use History Heroin Substance amount: 10 bags Frequency of use: Daily Substance route: Injection (ex: intravenous or skin popping) Date of Last Use: 02/19/20 Xanax Substance amount: 4 mgs to 6 mgs Frequency of use: Daily Substance route: Oral Date of Last Use: 02/19/20 Cocaine-Crack Substance amount: 59$ Frequency of use: Less than 3 times per week Substance route: Smoking Date of Last Use: 02/18/20 Methadone Substance amount: 30 mgs Frequency of use: Less than 3 times per week Substance route: Oral Date of Last Use: 02/19/20 - Last Treatment Date of last treatment: [facility] 01/12/20 to 01/16/20 Where was last treatment: Detox Physical/Psych/Mental Status - Behavior Eye Contact: Normal - Cooperativeness Cooperativeness: Cooperative - Thinking Thought Processes: Logical Thought content: Future oriented - Physical Health Problems Is patient presently having any pain?: No Does patient presently have any injuries (include location): No Does patient currently have a fever: No COWS - Scale Resting Pulse: 0= [place] 80 or Below Sweatin= Chills/Flushing Restless Observation: 1= Difficult to Sit Still Pupil Size: 1= Pupils >than Normal Bone or Joint Aches: 2= Severe Diffuse Aches Runny Nose/ Eye Tearin= Runny Nose/Eyes GI Upset > 30mins: 2= Nausea/Diarrhea Tremor Observation: 2= Slight Tremor Visible Yawning Observation: 2= >3x During Session Anxiety or Irritability: 2=Irritable/Anxious Goose Flesh Skin: 0=Smooth Skin COWS Score: 15 CIWA Nausea/Vomitin Muscle Tremors: 3 Anxiety: 3 Agitation: 3 Paroxysmal Sweats: 1-Minimal Palms Moist Orientation: 0-Oriented Tacttile Disturbances: 1-Very Mild Itch/Numbness Auditory Disturbances: 0-None Visual Disturbances: 0-None Headache: 2-Mild CIWA-Ar Total Score: 15
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
[2020-02-20] MEDS ORDERED: cloNIDine HCL 0.1 MG TABLET PO PRN (14:22)
[2020-02-20] MEDS ORDERED: ACETAMINOPHEN 325 MG TABLET (FP) PO PRN ×2 (14:22)
[2020-02-20] MEDS ORDERED: BISMUTH SUBSALICYLATE 524 MG/30 ML UD PO PRN (14:22)
[2020-02-20] MEDS ORDERED: IBUPROFEN 400 MG TABLET (FP) PO PRN (14:22)
[2020-02-20] MEDS ORDERED: METHADONE HCL 10 MG TABLET (FOR DETOX USE ONLY) PO ONE (14:22)
[2020-02-20] MEDS ORDERED: ONDANSETRON *ODT* 4 MG TABLET SL PRN (14:22)
[2020-02-20] MEDS ORDERED: MENTHOL/PHENOL 1 EACH UD MM PRN (14:22)
[2020-02-20] MEDS ORDERED: NALOXONE HCL 0.4 MG/ML VIAL IM PRN (14:22)
[2020-02-20] MEDS ORDERED: MAG HYDROX/AL HYDROX/SIMETH 30 ML UNIT-DOSE CUP PO PRN (14:22)
[2020-02-20] MEDS ORDERED: NICOTINE POLACRILEX 2 MG GUM BUC PRN (14:22)
[2020-02-20] MEDS ORDERED: MAGNESIUM HYDROX 2400MG/30ML ORAL SUSPENSION 30 ML CUP PO PRN (14:22)
[2020-02-20] MEDS ORDERED: MAGNESIUM CITRATE 300 ML BOTTLE PO PRN (14:22)
[2020-02-20 14:31] VITALS: BMI 21.1
[2020-02-20] MEDS: NICOTINE 21 MG/24 HOURS TOPICAL PATCH TD SCH (15:51)
[2020-02-20] MEDS: METHOCARBAMOL 500 MG TABLET PO PRN (15:53)
[2020-02-20] MEDS: diazePAM 5 MG TABLET PO SCH ×2 (17:22→22:41)
[2020-02-20] MEDS: hydrOXYzine PAMOATE 25 MG CAPSULE (FP) PO SCH ×2 (17:23→22:42)
[2020-02-20] MEDS: THIAMINE HCL 100 MG TABLET (FP) PO SCH (22:41)
[2020-02-20] MEDS: MELATONIN 5 MG TABLETS PO SCH (22:42)
[2020-02-21] MEDS: diazePAM 5 MG TABLET PO PRN ×2 (02:35→09:04)
[2020-02-21] MEDS: hydrOXYzine PAMOATE 25 MG CAPSULE (FP) PO SCH ×5 (05:20→22:03)
[2020-02-21] MEDS: diazePAM 5 MG TABLET PO SCH ×4 (05:20→22:03)
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
[2020-02-21] MEDS ORDERED: METHADONE HCL 5 MG TABLET (FOR DETOX USE ONLY) ONE (08:52)
[2020-02-21] MEDS ORDERED: METHADONE HCL 10 MG TABLET (FOR DETOX USE ONLY) ONE (08:52)
[2020-02-21] MEDS ORDERED: METHADONE (DETOX) 20 MG, METHADONE (DETOX) 5 MG PO ONE (10:00)
[2020-02-21] MEDS: METHOCARBAMOL 500 MG TABLET PO PRN (10:34)
[2020-02-21] MEDS: PRENATAL VITAMINS W/ FOLIC ACID TABLET (FP) PO SCH (10:35)
[2020-02-21] MEDS: NICOTINE 21 MG/24 HOURS TOPICAL PATCH TD SCH (10:35)
[2020-02-21 10:55] LABS: HEMATOCRIT 39.2 % (35.4-49); HEMOGLOBIN 13.2 GM/dL (11.7-16.9); MCH 28.6 pg (25.7-33.7); MCHC 33.7 g/dl (32.0-35.9); MEAN CELL VOLUME 84.8 fl (80-96); MEAN PLT VOLUME 8.4 fl (7.5-11.1); PLATELET COUNT 152 K/MM3 (134-434); RBC 4.62 M/mm3 (4.00-5.60); RDW 15.2 % (11.9-15.9); WHITE BLOOD COUNT 3.2 K/mm3 (4.0-10.0)
[2020-02-21 11:13] LABS: ALBUMIN 3.3 g/dl (3.4-5.0); BLOOD UREA NITROGEN 14.4 mg/dL (7-18); CALCIUM 9.3 mg/dL (8.5-10.1); CREATININE 0.9 mg/dL (0.55-1.3)
[2020-02-21 11:15] LABS: BILIRUBIN,TOTAL 0.9 mg/dL (0.2-1); TOT PROT 9.5 g/dl (6.4-8.2)
--- NOTE | 2020-02-21 11:54 | PN ---
S CIWA - CIWA Score Nausea/Vomitin-Mild Nausea/No Vomiting Muscle Tremors: 3 Anxiety: 3 Agitation: 1-Slight > Activity Paroxysmal Sweats: 1-Minimal Palms Moist Orientation: 0-Oriented Tacttile Disturbances: 0-None Auditory Disturbances: 0-None Visual Disturbances: 2-Mild Sensitivity Headache: 1-Very Mild CIWA-Ar Total Score: 12 BHS COWS - Scale Resting Pulse: 1= [place] 81-100 Sweatin= No chills or Flushing Restless Observation: 0= Sits Still Pupil Size: 1= Pupils >than Normal Bone or Joint Aches: 1= Mild Discomfort Runny Nose/ Eye Tearin= None GI Upset > 30mins: 2= Nausea/Diarrhea Tremor Observation of Outstretched Hands: 2= Slight Tremor Visible Yawning Observation: 0= None Anxiety or Irritability: 2=Irritable/Anxious Goose Flesh Skin: 3=[place] COWS Score: 12 S Progress Note (SOAP) Subjective: 60 years old male was admitted on 02/20/20 for alcohol benzo opiate withdrawal sx management treating with valium and methadone detox regiment feels tired encourage nutrition supplement and meals ate breakfast and lunch in room prefers to stay in bed today limited conversation with staff Objective: 02/21/20 11:58 Vital Signs - 24 hr 02/20/20 02/20/20 02/20/20 14:27 14:31 17:02 Temperature 97.9 F 97.7 F Pulse Rate 66 70 Respiratory 18 18 Rate Blood Pressure 102/68 105/70 O2 Sat by Pulse 99 Oximetry (%) 02/20/20 02/21/20 02/21/20 22:49 05:09 08:45 Temperature 97.7 F 97.7 F 97.1 F L Pulse Rate 74 87 91 H Respiratory 18 18 20 Rate Blood Pressure 102/68 102/68 90/68 O2 Sat by Pulse 97 98 Oximetry (%) Laboratory Tests 02/20/20 02/21/20 02/21/20 14:45 07:40 07:40 WBC 3.2 L RBC 4.62 Hgb 13.2 Hct 39.2 MCV 84.8 MCH 28.6 MCHC 33.7 RDW 15.2 D Plt Count 152 MPV 8.4 Sodium Potassium Chloride Carbon Dioxide Anion Gap BUN Creatinine Est GFR (CKD-EPI)AfAm Est GFR (CKD-EPI)NonAf Random Glucose Calcium Total Bilirubin AST ALT Alkaline Phosphatase Total Protein Albumin Syphilis Serology Non-reactive COVID-19 ([facility]) Not detected 02/21/20 07:40 WBC RBC Hgb Hct MCV MCH MCHC RDW Plt Count MPV Sodium 136 Potassium 4.0 Chloride 101 Carbon Dioxide 32 Anion Gap 3 L BUN 14.4 Creatinine 0.9 Est GFR (CKD-EPI)AfAm 108.73 Est GFR (CKD-EPI)NonAf 93.82 Random Glucose 96 Calcium 9.3 Total Bilirubin 0.9 AST 40 H ALT 56 Alkaline Phosphatase 139 H Total Protein 9.5 H Albumin 3.3 L Syphilis Serology COVID-19 (MARK) lab noted Assessment: 02/21/20 11:59 alcohol benzo opiate withdrawal Plan: valium and methadone regiments
[2020-02-21] MEDS: THIAMINE HCL 100 MG TABLET (FP) PO SCH (22:03)
[2020-02-21] MEDS: MELATONIN 5 MG TABLETS PO SCH (22:03)
[2020-02-22] MEDS: hydrOXYzine PAMOATE 25 MG CAPSULE (FP) PO SCH ×5 (07:52→22:40)
[2020-02-22] MEDS: diazePAM 5 MG TABLET PO SCH ×3 (07:53→22:08)
[2020-02-22] MEDS ORDERED: METHADONE HCL 10 MG TABLET (FOR DETOX USE ONLY) PO ONE (10:00)
[2020-02-22] MEDS: NICOTINE 21 MG/24 HOURS TOPICAL PATCH TD SCH (10:13)
[2020-02-22] MEDS: PRENATAL VITAMINS W/ FOLIC ACID TABLET (FP) PO SCH (10:13)
[2020-02-22] MEDS: diazePAM 5 MG TABLET PO PRN ×2 (10:15→16:06)
--- NOTE | 2020-02-22 15:25 | PN ---
[facility] CIWA - CIWA Score Nausea/Vomitin-Mild Nausea/No Vomiting Muscle Tremors: 2 Anxiety: 2 Agitation: 0-Normal Activity Paroxysmal Sweats: No Perspiration Orientation: 0-Oriented Tacttile Disturbances: 0-None Auditory Disturbances: 0-None Visual Disturbances: 2-Mild Sensitivity Headache: 2-Mild CIWA-Ar Total Score: 9 S COWS - Scale Resting Pulse: 0= [place] 80 or Below Sweatin= Chills/Flushing Restless Observation: 0= Sits Still Pupil Size: 1= Pupils >than Normal Bone or Joint Aches: 1= Mild Discomfort Runny Nose/ Eye Tearin= None GI Upset > 30mins: 2= Nausea/Diarrhea Tremor Observation of Outstretched Hands: 2= Slight Tremor Visible Yawning Observation: 0= None Anxiety or Irritability: 2=Irritable/Anxious Goose Flesh Skin: 0=Smooth Skin COWS Score: 9 S Progress Note (SOAP) Subjective: 60 years old male was admitted on 02/20/20 for alcohol benzo opiate withdrawal sx management treating with valium and methadone detox regiments Vital Signs - 24 hr 02/21/20 02/21/20 02/22/20 17:00 20:24 06:04 Temperature 97.2 F L 97.5 F L 97.2 F L Pulse Rate 70 80 57 L Respiratory 16 16 18 Rate Blood Pressure 97/66 90/60 99/51 L O2 Sat by Pulse 98 97 Oximetry (%) 02/22/20 02/22/20 08:33 12:42 Temperature 96.4 F L 97.5 F L Pulse Rate 90 71 Respiratory 18 20 Rate Blood Pressure 90/59 L 87/56 L O2 Sat by Pulse 97 98 Oximetry (%) low bp discontinue clonidine Objective: 02/22/20 15:27 Vital Signs - 24 hr lab noted Laboratory Tests 02/20/20 02/21/20 02/21/20 14:45 07:40 07:40 WBC 3.2 L RBC 4.62 Hgb 13.2 Hct 39.2 MCV 84.8 MCH 28.6 MCHC 33.7 RDW 15.2 D Plt Count 152 MPV 8.4 Sodium Potassium Chloride Carbon Dioxide Anion Gap BUN Creatinine Est GFR (CKD-EPI)AfAm Est GFR (CKD-EPI)NonAf Random Glucose Calcium Total Bilirubin AST ALT Alkaline Phosphatase Total Protein Albumin Syphilis Serology Non-reactive COVID-19 (MARK) Not detected 02/21/20 07:40 WBC RBC Hgb Hct MCV MCH MCHC RDW Plt Count MPV Sodium 136 Potassium 4.0 Chloride 101 Carbon Dioxide 32 Anion Gap 3 L BUN 14.4 Creatinine 0.9 Est GFR (CKD-EPI)AfAm 108.73 Est GFR (CKD-EPI)NonAf 93.82 Random Glucose 96 Calcium 9.3 Total Bilirubin 0.9 AST 40 H ALT 56 Alkaline Phosphatase 139 H Total Protein 9.5 H Albumin 3.3 L Syphilis Serology COVID-19 (MARK) Assessment: 02/22/20 15:28 alcohol benzo opiate withdrawal Plan: valium and methadone regiments
[2020-02-22 17:27] LABS: URINE APPEARANCE CLEAR; URINE BILIRUBIN NEGATIVE (NEGATIVE); URINE COLOR YELLOW; URINE GLUCOSE (UA) NEGATIVE (NEGATIVE); URINE KETONE NEGATIVE (NEGATIVE); URINE LEUK ESTERASE NEGATIVE (NEGATIVE); URINE NITRITE NEGATIVE (NEGATIVE); URINE PROTEIN NEGATIVE (NEGATIVE)
[2020-02-22] MEDS: SUVOREXANT 10 MG TABLET PO PRN (22:08)
[2020-02-22] MEDS: MELATONIN 5 MG TABLETS PO SCH (22:08)
[2020-02-22] MEDS: THIAMINE HCL 100 MG TABLET (FP) PO SCH (22:09)
[2020-02-23] MEDS: diazePAM 5 MG TABLET PO SCH ×2 (06:23→17:35)
[2020-02-23] MEDS: hydrOXYzine PAMOATE 25 MG CAPSULE (FP) PO SCH ×5 (06:23→22:09)
[2020-02-23] MEDS ORDERED: METHADONE (DETOX) 10 MG, METHADONE (DETOX) 5 MG PO ONE (10:00)
[2020-02-23] MEDS ORDERED: METHADONE HCL 10 MG TABLET (FOR DETOX USE ONLY) ONE (10:05)
[2020-02-23] MEDS ORDERED: METHADONE HCL 5 MG TABLET (FOR DETOX USE ONLY) ONE (10:06)
[2020-02-23] MEDS: METHOCARBAMOL 500 MG TABLET PO PRN (10:13)
[2020-02-23] MEDS: diazePAM 5 MG TABLET PO PRN (10:13)
[2020-02-23] MEDS: NICOTINE 21 MG/24 HOURS TOPICAL PATCH TD SCH (10:14)
[2020-02-23] MEDS: PRENATAL VITAMINS W/ FOLIC ACID TABLET (FP) PO SCH (10:14)
--- NOTE | 2020-02-23 13:30 | PN ---
[facility] CIWA - CIWA Score Nausea/Vomitin-Mild Nausea/No Vomiting Muscle Tremors: 1-None Visible, but [place] Anxiety: 1-Mildly Anxious Agitation: 1-Slight > Activity Paroxysmal Sweats: No Perspiration Orientation: 0-Oriented Tacttile Disturbances: 0-None Auditory Disturbances: 0-None Visual Disturbances: 1-Very Mild Sensitivity Headache: 1-Very Mild CIWA-Ar Total Score: 6 S COWS - Scale Resting Pulse: 0= [place] 80 or Below Sweatin= No chills or Flushing Restless Observation: 0= Sits Still Pupil Size: 1= Pupils >than Normal Bone or Joint Aches: 1= Mild Discomfort Runny Nose/ Eye Tearin= Nasal Congestion GI Upset > 30mins: 1= Stomach Cramp Tremor Observation of Outstretched Hands: 1= Tremor [place], Not Seen Yawning Observation: 0= None Anxiety or Irritability: 1=Feels Anxious/Irritable Goose Flesh Skin: 0=Smooth Skin COWS Score: 6 S Progress Note (SOAP) Subjective: 60 years old male was admitted on 02/20/20 for alcohol benzo opiate withdrawal sx management treating with valium and methadone detox regiments feels ok today less general body aches mild anxiety Objective: 02/23/20 13:43 Laboratory Tests 02/20/20 02/21/20 02/21/20 14:45 07:40 07:40 WBC 3.2 L RBC 4.62 Hgb 13.2 Hct 39.2 MCV 84.8 MCH 28.6 MCHC 33.7 RDW 15.2 D Plt Count 152 MPV 8.4 Sodium Potassium Chloride Carbon Dioxide Anion Gap BUN Creatinine Est GFR (CKD-EPI)AfAm Est GFR (CKD-EPI)NonAf Random Glucose Calcium Total Bilirubin AST ALT Alkaline Phosphatase Total Protein Albumin Urine Color Urine Appearance Urine pH Ur Specific [place] Urine Protein Urine Glucose (UA) Urine Ketones Urine Blood Urine Nitrite Urine Bilirubin Urine Urobilinogen Ur Leukocyte Esterase Syphilis Serology Non-reactive COVID-19 (MARK) Not detected 02/21/20 02/22/20 07:40 15:55 WBC RBC Hgb Hct MCV MCH MCHC RDW Plt Count MPV Sodium 136 Potassium 4.0 Chloride 101 Carbon Dioxide 32 Anion Gap 3 L BUN 14.4 Creatinine 0.9 Est GFR (CKD-EPI)AfAm 108.73 Est GFR (CKD-EPI)NonAf 93.82 Random Glucose 96 Calcium 9.3 Total Bilirubin 0.9 AST 40 H ALT 56 Alkaline Phosphatase 139 H Total Protein 9.5 H Albumin 3.3 L Urine Color Yellow Urine Appearance Clear Urine pH 8.0 Ur Specific [place] 1.017 Urine Protein Negative Urine Glucose (UA) Negative Urine Ketones Negative Urine Blood Negative Urine Nitrite Negative Urine Bilirubin Negative Urine Urobilinogen 2.0 Ur Leukocyte Esterase Negative Syphilis Serology COVID-19 (MARK) lab noted Assessment: 02/23/20 13:44 alcohol benzo opiate withdrawal Plan: valium and methadone regiments
--- NOTE | 2020-02-23 14:27 | PN ---
[facility] CIWA - CIWA Score Nausea/Vomitin-Mild Nausea/No Vomiting Muscle Tremors: 1-None Visible, but [place] Anxiety: 1-Mildly Anxious Agitation: 0-Normal Activity Paroxysmal Sweats: No Perspiration Orientation: 0-Oriented Tacttile Disturbances: 0-None Auditory Disturbances: 0-None Visual Disturbances: 1-Very Mild Sensitivity Headache: 1-Very Mild CIWA-Ar Total Score: 5 [facility] COWS - Scale Resting Pulse: 0= [place] 80 or Below Sweatin= No chills or Flushing Restless Observation: 0= Sits Still Pupil Size: 1= Pupils >than Normal Bone or Joint Aches: 1= Mild Discomfort Runny Nose/ Eye Tearin= Nasal Congestion GI Upset > 30mins: 0= None Tremor Observation of Outstretched Hands: 1= Tremor [place], Not Seen Yawning Observation: 1= 1-2x During Session Anxiety or Irritability: 1=Feels Anxious/Irritable Goose Flesh Skin: 0=Smooth Skin COWS Score: 6
[2020-02-23] MEDS: SUVOREXANT 10 MG TABLET PO PRN (22:08)
[2020-02-23] MEDS: THIAMINE HCL 100 MG TABLET (FP) PO SCH (22:09)
[2020-02-23] MEDS: MELATONIN 5 MG TABLETS PO SCH (22:09)
[2020-02-24] MEDS ORDERED: diazePAM 5 MG TABLET PO ONE (06:00)
[2020-02-24] MEDS: hydrOXYzine PAMOATE 25 MG CAPSULE (FP) PO SCH ×5 (06:04→22:14)
[2020-02-24] MEDS ORDERED: METHADONE HCL 10 MG TABLET (FOR DETOX USE ONLY) PO ONE (10:00)
[2020-02-24] MEDS: PRENATAL VITAMINS W/ FOLIC ACID TABLET (FP) PO SCH (10:01)
[2020-02-24] MEDS: METHOCARBAMOL 500 MG TABLET PO PRN (10:01)
[2020-02-24] MEDS: NICOTINE 21 MG/24 HOURS TOPICAL PATCH TD SCH (10:02)
--- NOTE | 2020-02-24 11:57 | PN ---
[facility] CIWA - CIWA Score Nausea/Vomitin-Mild Nausea/No Vomiting Muscle Tremors: 2 Anxiety: 2 Agitation: 1-Slight > Activity Paroxysmal Sweats: No Perspiration Orientation: 0-Oriented Tacttile Disturbances: 0-None Auditory Disturbances: 0-None Visual Disturbances: 0-None Headache: 1-Very Mild CIWA-Ar Total Score: 7 S COWS - Scale Resting Pulse: 1= [place] 81-100 Sweatin= No chills or Flushing Restless Observation: 0= Sits Still Pupil Size: 0= Normal to Room Light Bone or Joint Aches: 1= Mild Discomfort Runny Nose/ Eye Tearin= Nasal Congestion GI Upset > 30mins: 1= Stomach Cramp Tremor Observation of Outstretched Hands: 2= Slight Tremor Visible Yawning Observation: 0= None Anxiety or Irritability: 2=Irritable/Anxious Goose Flesh Skin: 0=Smooth Skin COWS Score: 8 S Progress Note (SOAP) Subjective: alert,irritable,anxious,interrupted sleep,aching pain body and back Objective: 02/24/20 16:32 Vital Signs Temperature 97.7 F 02/24/20 12:34 Pulse Rate 98 H 02/24/20 12:34 Respiratory Rate 18 02/24/20 12:34 Blood Pressure 95/61 02/24/20 12:34 O2 Sat by Pulse Oximetry (%) 97 02/24/20 12:34 02/24/20 16:32 Laboratory Last Values WBC 3.2 K/mm3 (4.0-10.0) L 02/21/20 07:40 RBC 4.62 M/mm3 (4.00-5.60) 02/21/20 07:40 Hgb 13.2 GM/dL (11.7-16.9) 02/21/20 07:40 Hct 39.2 % (35.4-49) 02/21/20 07:40 MCV 84.8 fl (80-96) 02/21/20 07:40 MCH 28.6 pg (25.7-33.7) 02/21/20 07:40 MCHC 33.7 g/dl (32.0-35.9) 02/21/20 07:40 RDW 15.2 % (11.9-15.9) D 02/21/20 07:40 Plt Count 152 K/MM3 (134-434) 02/21/20 07:40 MPV 8.4 fl (7.5-11.1) 02/21/20 07:40 Sodium 136 mmol/L (136-145) 02/21/20 07:40 Potassium 4.0 mmol/L (3.5-5.1) 02/21/20 07:40 Chloride 101 mmol/L (98-107) 02/21/20 07:40 Carbon Dioxide 32 mmol/L (21-32) 02/21/20 07:40 Anion Gap 3 MMOL/L (8-16) L 02/21/20 07:40 BUN 14.4 mg/dL (7-18) 02/21/20 07:40 Creatinine 0.9 mg/dL (0.55-1.3) 02/21/20 07:40 Est GFR (CKD-EPI)AfAm 108.73 02/21/20 07:40 Est GFR (CKD-EPI)NonAf 93.82 02/21/20 07:40 Random Glucose 96 mg/dL (74-106) 02/21/20 07:40 Calcium 9.3 mg/dL (8.5-10.1) 02/21/20 07:40 Total Bilirubin 0.9 mg/dL (0.2-1) 02/21/20 07:40 AST 40 U/L (15-37) H 02/21/20 07:40 ALT 56 U/L (13-61) 02/21/20 07:40 Alkaline Phosphatase 139 U/L (45-117) H 02/21/20 07:40 Total Protein 9.5 g/dl (6.4-8.2) H 02/21/20 07:40 Albumin 3.3 g/dl (3.4-5.0) L 02/21/20 07:40 Urine Color Yellow 02/22/20 15:55 Urine Appearance Clear 02/22/20 15:55 Urine pH 8.0 (5.0-8.0) 02/22/20 15:55 Ur Specific [employer] 1.017 (1.010-1.035) 02/22/20 15:55 Urine Protein Negative (NEGATIVE) 02/22/20 15:55 Urine Glucose (UA) Negative (NEGATIVE) 02/22/20 15:55 Urine Ketones Negative (NEGATIVE) 02/22/20 15:55 Urine Blood Negative (NEGATIVE) 02/22/20 15:55 Urine Nitrite Negative (NEGATIVE) 02/22/20 15:55 Urine Bilirubin Negative (NEGATIVE) 02/22/20 15:55 Urine Urobilinogen 2.0 mg/dL (0.2-1.0) 02/22/20 15:55 Ur Leukocyte Esterase Negative (NEGATIVE) 02/22/20 15:55 Syphilis Serology Non-reactive (NONREACTIVE) 02/21/20 07:40 COVID-19 (MARK) Not detected (Not Detected) 02/20/20 14:45 Assessment: 02/24/20 16:32 withdrawal symptom Plan: continue detox methadone and valium regimen,discharge in am
[2020-02-24] MEDS: SUVOREXANT 10 MG TABLET PO PRN (21:43)
[2020-02-24] MEDS: MELATONIN 5 MG TABLETS PO SCH (22:14)
[2020-02-24] MEDS: THIAMINE HCL 100 MG TABLET (FP) PO SCH (22:14)
[2020-02-25] MEDS ORDERED: METHADONE HCL 5 MG TABLET (FOR DETOX USE ONLY) PO ONE (06:00)
[2020-02-25] MEDS: hydrOXYzine PAMOATE 25 MG CAPSULE (FP) PO SCH ×2 (06:16→10:20)
[2020-02-25 09:06] VITALS: BP 69/64; PULSE 66; TEMP 97.1
--- NOTE | 2020-02-25 10:14 | DS ---
[facility] Detox Discharge Summary Admission Date: 02/20/20 Discharge Date: 02/25/20 - History Present History: Opioid Dependence - Physical Exam Results Vital Signs: Vital Signs Temperature 97.1 F L 02/25/20 08:41 Pulse Rate 66 02/25/20 08:41 Respiratory Rate 18 02/25/20 08:41 Blood Pressure 69/64 L 02/25/20 08:41 O2 Sat by Pulse Oximetry (%) 93 L 02/25/20 08:41 Pertinent Admission Physical Exam Findings: PE Gnl: WDWN, in no distress MS: nl mentation Motor: moves limbs symetrically Coordination: intact Laboratory Tests 02/20/20 02/21/20 02/21/20 14:45 07:40 07:40 WBC 3.2 L RBC 4.62 Hgb 13.2 Hct 39.2 MCV 84.8 MCH 28.6 MCHC 33.7 RDW 15.2 D Plt Count 152 MPV 8.4 Sodium Potassium Chloride Carbon Dioxide Anion Gap BUN Creatinine Est GFR (CKD-EPI)AfAm Est GFR (CKD-EPI)NonAf Random Glucose Calcium Total Bilirubin AST ALT Alkaline Phosphatase Total Protein Albumin Urine Color Urine Appearance Urine pH Ur Specific [place] Urine Protein Urine Glucose (UA) Urine Ketones Urine Blood Urine Nitrite Urine Bilirubin Urine Urobilinogen Ur Leukocyte Esterase Syphilis Serology Non-reactive COVID-19 (MARK) Not detected 02/21/20 02/22/20 07:40 15:55 WBC RBC Hgb Hct MCV MCH MCHC RDW Plt Count MPV Sodium 136 Potassium 4.0 Chloride 101 Carbon Dioxide 32 Anion Gap 3 L BUN 14.4 Creatinine 0.9 Est GFR (CKD-EPI)AfAm 108.73 Est GFR (CKD-EPI)NonAf 93.82 Random Glucose 96 Calcium 9.3 Total Bilirubin 0.9 AST 40 H ALT 56 Alkaline Phosphatase 139 H Total Protein 9.5 H Albumin 3.3 L Urine Color Yellow Urine Appearance Clear Urine pH 8.0 Ur Specific [place] 1.017 Urine Protein Negative Urine Glucose (UA) Negative Urine Ketones Negative Urine Blood Negative Urine Nitrite Negative Urine Bilirubin Negative Urine Urobilinogen 2.0 Ur Leukocyte Esterase Negative Syphilis Serology COVID-19 (MARK) Active Medications Generic Name Dose Route Start Last Admin Trade Name Freq PRN Reason Stop Dose Admin Acetaminophen 650 mg 02/20/20 14:22 Tylenol - PO Q6H PRN PAIN LEVEL 4 - 6 Acetaminophen 650 mg 02/20/20 14:22 Tylenol - PO Q6H PRN FEVER Al Hydroxide/Mg Hydroxide 30 ml 02/20/20 14:22 Mylanta Oral Suspension - PO Q6H PRN DYSPEPSIA Bismuth Subsalicylate 524 mg 02/20/20 14:22 Pepto-Bismol - PO Q1H PRN DIARRHEA Eucalyptus/Menthol/Phenol/Sorbitol 1 each 02/20/20 14:22 Cepastat Lozenge - MM 02/26/20 14:22 Q4H PRN SORE THROAT Hydroxyzine Pamoate 25 mg 02/20/20 18:00 02/25/20 06:16 Vistaril - PO 02/26/20 14:22 25 mg Q4HWA RAJAN Administration Ibuprofen 400 mg 02/20/20 14:22 Motrin - PO Q6H PRN PAIN LEVEL 1 - 3 Magnesium Citrate 300 ml 02/20/20 14:22 Citroma - PO Q48H PRN CONSTIPATION Magnesium Hydroxide 30 ml 02/20/20 14:22 Milk Of Magnesia - PO PRN PRN CONSTIPATION Melatonin 5 mg 02/20/20 22:00 02/24/20 22:14 Melatonin PO 5 mg HS RAJAN Administration Methocarbamol 500 mg 02/20/20 14:22 02/24/20 10:01 Robaxin - PO 02/26/20 14:22 500 mg Q6H PRN Administration MUSCLE SPASMS Naloxone HCl 0.4 mg 02/20/20 14:22 Narcan - IM PRN PRN RESPIRATORY DEPRESSION Nicotine 21 mg 02/20/20 14:30 02/24/20 10:02 Nicoderm Patch - TD 21 mg DAILY RAJAN Administration Nicotine Polacrilex 2 mg 02/20/20 14:22 Nicorette Gum - BUC Q2H PRN NICOTINE REPLACEMENT RX Ondansetron HCl 4 mg 02/20/20 14:22 Zofran Odt - SL Q8H PRN Nausea/Vomiting Multivit/Folic Acid/Iron 1 tab 02/21/20 10:00 02/24/20 10:01 Vitamins (Sjr) - PO 1 tab DAILY RAJAN Administration Thiamine HCl 100 mg 02/20/20 22:00 02/24/20 22:14 Vitamin B1 - PO 100 mg HS RAJAN Administration - Treatment Hospital Course: Detox Protocol Followed, Detoxed Safely, Responded well, Discharged Condition Good Patient has Accepted a Rehab Referral to: outpatient VIP program - Medication Discharge Medications: Ambulatory Orders Naloxone HCl [Narcan] 4 mg NS ASDIR PRN #1 spray 01/16/20 - AMA Did Patient Leave Against Medical Advice: No
[2020-02-25] MEDS: NICOTINE 21 MG/24 HOURS TOPICAL PATCH TD SCH (10:19)
[2020-02-25] MEDS: PRENATAL VITAMINS W/ FOLIC ACID TABLET (FP) PO SCH (10:19)
== END 2020-02-25 10:25 | disposition home or self-care (01) | DRG 897 ==
LOC: YASAS 11:01 → Y3N 14:26
PROVIDERS: ADMIT Allergy & Immunology; ATTEND Allergy & Immunology
PROC: HZ2ZZZZ Detoxification Services for Substance Abuse Treatment (ICD-10-PCS; principal; 2020-02-20)
DX: F10.230 Alcohol dependence with withdrawal, uncomplicated (principal); F14.20 Cocaine dependence, uncomplicated; F19.280 Other psychoactive substance dependence with psychoactive substance-induced anxiety disorder; F19.282 Other psychoactive substance dependence with psychoactive substance-induced sleep disorder; F11.23 Opioid dependence with withdrawal; F13.230 Sedative, hypnotic or anxiolytic dependence with withdrawal, uncomplicated; F17.210 Nicotine dependence, cigarettes, uncomplicated; H54.62 Unqualified visual loss, left eye, normal vision right eye; R63.6 Underweight; Z68.21 Body mass index [BMI] 21.0-21.9, adult; R76.11 Nonspecific reaction to tuberculin skin test without active tuberculosis; Z86.19 Personal history of other infectious and parasitic diseases; Z56.0 Unemployment, unspecified; Z59.0 Homelessness
CPT/HCPCS: 36415; 80053; 81003; 85027; 86780; U0003

== ENCOUNTER 2020-07-12 09:55 | Inpatient (IN) | payer OTHER ==
[2020-07-12] MEDS ORDERED: cloNIDine HCL 0.1 MG TABLET PO PRN (11:35)
[2020-07-12] MEDS ORDERED: METHADONE HCL 10 MG TABLET (FOR DETOX USE ONLY) PO ONE (11:35)
[2020-07-12] MEDS ORDERED: MENTHOL/PHENOL 1 EACH UD MM PRN (11:35)
[2020-07-12] MEDS ORDERED: IBUPROFEN 400 MG TABLET (FP) PO PRN (11:35)
[2020-07-12] MEDS ORDERED: LORazepam 1 MG TABLET PO PRN (11:35)
[2020-07-12] MEDS ORDERED: MAGNESIUM CITRATE 300 ML BOTTLE PO PRN (11:35)
[2020-07-12] MEDS ORDERED: MAGNESIUM HYDROX 2400MG/30ML ORAL SUSPENSION 30 ML CUP PO PRN (11:35)
[2020-07-12] MEDS ORDERED: ACETAMINOPHEN 325 MG TABLET (FP) PO PRN ×2 (11:35)
[2020-07-12] MEDS ORDERED: METHOCARBAMOL 500 MG TABLET PO PRN (11:35)
[2020-07-12] MEDS ORDERED: MAG HYDROX/AL HYDROX/SIMETH 30 ML UNIT-DOSE CUP PO PRN (11:35)
[2020-07-12] MEDS ORDERED: BISMUTH SUBSALICYLATE 262 MG/15 ML BTL PO PRN (11:35)
[2020-07-12] MEDS ORDERED: ONDANSETRON *ODT* 4 MG TABLET SL PRN (11:35)
[2020-07-12] MEDS ORDERED: NICOTINE POLACRILEX 2 MG GUM BUC PRN (11:35)
[2020-07-12] MEDS: hydrOXYzine PAMOATE 25 MG CAPSULE (FP) PO SCH ×3 (14:05→22:45)
[2020-07-12 14:20] LABS: HEMATOCRIT 33.9 % (35.4-49); HEMOGLOBIN 11.8 GM/dL (11.7-16.9); MCH 27.7 pg (25.7-33.7); MCHC 34.7 g/dl (32.0-35.9); MEAN CELL VOLUME 79.6 fl (80-96); MEAN PLT VOLUME 8.3 fl (7.5-11.1); PLATELET COUNT 81 K/MM3 (134-434); POTASSIUM 3.7 mmol/L (3.5-5.1); RBC 4.25 M/mm3 (4.00-5.60); RDW 15.4 % (11.9-15.9)
[2020-07-12 14:22] LABS: CALCIUM 8.6 mg/dL (8.5-10.1)
[2020-07-12 14:23] LABS: ALBUMIN 3.2 g/dl (3.4-5.0)
[2020-07-12 14:26] LABS: CREATININE 1.1 mg/dL (0.55-1.3)
[2020-07-12 14:28] LABS: WHITE BLOOD COUNT 1.5 K/mm3 (4.0-10.0)
[2020-07-12 14:29] LABS: BILIRUBIN,TOTAL 0.6 mg/dL (0.2-1); TOT PROT 7.8 g/dl (6.4-8.2)
[2020-07-12] MEDS: LORazepam 2 MG TABLET PO SCH ×2 (19:02→22:46)
[2020-07-12] MEDS ORDERED: SUVOREXANT 10 MG TABLET PO PRN (22:00)
[2020-07-12] MEDS: MELATONIN 5 MG TABLETS PO SCH (22:44)
[2020-07-12] MEDS: THIAMINE HCL 100 MG TABLET (FP) PO SCH (22:45)
[2020-07-13] MEDS: LORazepam 2 MG TABLET PO SCH ×4 (06:14→22:47)
[2020-07-13] MEDS: hydrOXYzine PAMOATE 25 MG CAPSULE (FP) PO SCH ×5 (06:14→22:47)
[2020-07-13] MEDS ORDERED: METHADONE HCL 10 MG TABLET (FOR DETOX USE ONLY) ONE (09:10)
[2020-07-13] MEDS ORDERED: METHADONE HCL 5 MG TABLET (FOR DETOX USE ONLY) ONE (09:10)
[2020-07-13] MEDS ORDERED: METHADONE (DETOX) 20 MG, METHADONE (DETOX) 5 MG PO ONE (10:00)
[2020-07-13] MEDS: PRENATAL VITAMINS W/ FOLIC ACID TABLET (FP) PO SCH (10:16)
[2020-07-13 12:32] LABS: CALCIUM 8.7 mg/dL (8.5-10.1)
[2020-07-13 12:33] LABS: ALBUMIN 2.9 g/dl (3.4-5.0); BLOOD UREA NITROGEN 15.9 mg/dL (7-18)
[2020-07-13 12:37] LABS: BILIRUBIN,TOTAL 0.7 mg/dL (0.2-1)
[2020-07-13 12:38] LABS: TOT PROT 7.6 g/dl (6.4-8.2)
[2020-07-13 14:25] LABS: INR 1.13 (0.83-1.09); PROTHROMBIN TIME (PATIENT) 13.8 SEC (9.7-13.0)
[2020-07-13] MEDS: THIAMINE HCL 100 MG TABLET (FP) PO SCH (22:47)
[2020-07-13] MEDS: MELATONIN 5 MG TABLETS PO SCH (22:47)
[2020-07-14] MEDS: LORazepam 1 MG TABLET PO SCH ×2 (06:19→11:11)
[2020-07-14] MEDS: hydrOXYzine PAMOATE 25 MG CAPSULE (FP) PO SCH ×2 (06:19→11:10)
[2020-07-14 09:11] VITALS: BP 79/47; PULSE 96; TEMP 99.3
[2020-07-14] MEDS ORDERED: METHADONE HCL 10 MG TABLET (FOR DETOX USE ONLY) PO ONE (10:00)
[2020-07-14 10:47] LABS: BASO % 0.4 % (0-2.0); EOS % 1.2 % (0-4.5); HEMATOCRIT 30.6 % (35.4-49); HEMOGLOBIN 10.6 GM/dL (11.7-16.9); LYMPH % 55.7 % (8-40); MCH 27.8 pg (25.7-33.7); MCHC 34.6 g/dl (32.0-35.9); MEAN CELL VOLUME 80.3 fl (80-96); MEAN PLT VOLUME 8.7 fl (7.5-11.1); MONO % 12.1 % (3.8-10.2); NEUT % 30.6 % (42.8-82.8); PLATELET COUNT 73 K/MM3 (134-434); RBC 3.81 M/mm3 (4.00-5.60); RDW 15.4 % (11.9-15.9)
[2020-07-14 10:58] LABS: WHITE BLOOD COUNT 1.1 K/mm3 (4.0-10.0)
[2020-07-14] MEDS: PRENATAL VITAMINS W/ FOLIC ACID TABLET (FP) PO SCH (11:10)
[2020-07-14 12:24] LABS: ANISOCYTOSIS 0; MACROCYTOSIS 0; PLATELET ESTIMATE DECREASED
[2020-07-15] MEDS ORDERED: LORazepam 0.5 MG TABLET PO PRN
[2020-07-15] MEDS ORDERED: LORazepam 0.5 MG TABLET PO SCH (05:00)
[2020-07-15] MEDS ORDERED: METHADONE (DETOX) 10 MG, METHADONE (DETOX) 5 MG PO ONE (10:00)
[2020-07-16] MEDS ORDERED: LORazepam 0.5 MG TABLET PO ONE (05:00)
[2020-07-16] MEDS ORDERED: METHADONE HCL 10 MG TABLET (FOR DETOX USE ONLY) PO ONE (10:00)
[2020-07-17] MEDS ORDERED: METHADONE HCL 5 MG TABLET (FOR DETOX USE ONLY) PO ONE (06:00)
== END 2020-07-14 11:54 | disposition home or self-care (01) | DRG 896 ==
LOC: YASAS 09:55 → Y6N 11:20
PROVIDERS: ADMIT Allergy & Immunology; ATTEND Allergy & Immunology
PROC: HZ2ZZZZ Detoxification Services for Substance Abuse Treatment (ICD-10-PCS; principal; 2020-07-12)
DX: F11.23 Opioid dependence with withdrawal (principal); U07.1 COVID-19; F14.20 Cocaine dependence, uncomplicated; F13.20 Sedative, hypnotic or anxiolytic dependence, uncomplicated; F19.282 Other psychoactive substance dependence with psychoactive substance-induced sleep disorder; D61.818 Other pancytopenia; E87.1 Hypo-osmolality and hyponatremia; F19.24 Other psychoactive substance dependence with psychoactive substance-induced mood disorder; F10.20 Alcohol dependence, uncomplicated; F17.210 Nicotine dependence, cigarettes, uncomplicated; B18.2 Chronic viral hepatitis C; H54.62 Unqualified visual loss, left eye, normal vision right eye; R76.11 Nonspecific reaction to tuberculin skin test without active tuberculosis; R74.01 Elevation of levels of liver transaminase levels; R79.89 Other specified abnormal findings of blood chemistry
CPT/HCPCS: 36415; 80053; 85025; 85027; 85610; 86780; C9803; U0003

== ENCOUNTER 2020-12-14 11:10 | Inpatient (IN) | payer OTHER ==
[2020-12-14 11:39] VITALS: BMI 18.8
[2020-12-14] MEDS ORDERED: METHADONE HCL 10 MG TABLET (FOR DETOX USE ONLY) PO ONE (12:58)
[2020-12-14] MEDS ORDERED: cloNIDine HCL 0.1 MG TABLET PO PRN (12:58)
[2020-12-14] MEDS ORDERED: MAG HYDROX/AL HYDROX/SIMETH 30 ML UNIT-DOSE CUP PO PRN (12:58)
[2020-12-14] MEDS ORDERED: MAGNESIUM HYDROX 2400MG/30ML ORAL SUSPENSION 30 ML CUP PO PRN (12:58)
[2020-12-14] MEDS ORDERED: MENTHOL/PHENOL 1 EACH UD MM PRN (12:58)
[2020-12-14] MEDS ORDERED: LORazepam 1 MG TABLET PO PRN (12:58)
[2020-12-14] MEDS ORDERED: METHOCARBAMOL 500 MG TABLET PO PRN (12:58)
[2020-12-14] MEDS ORDERED: BISMUTH SUBSALICYLATE 524 MG/30 ML PO PRN (12:58)
[2020-12-14] MEDS ORDERED: IBUPROFEN 400 MG TABLET (FP) PO PRN (12:58)
[2020-12-14] MEDS ORDERED: ACETAMINOPHEN 325 MG TABLET (FP) PO PRN ×2 (12:58)
[2020-12-14] MEDS ORDERED: ONDANSETRON *ODT* 4 MG TABLET SL PRN (12:58)
[2020-12-14] MEDS ORDERED: NICOTINE POLACRILEX 2 MG GUM BUC PRN (12:58)
[2020-12-14] MEDS ORDERED: MAGNESIUM CITRATE 300 ML BOTTLE PO PRN (12:58)
[2020-12-14] MEDS ORDERED: hydrOXYzine PAMOATE 25 MG CAPSULE (FP) PO PRN (13:30)
[2020-12-14] MEDS ORDERED: hydrOXYzine PAMOATE 25 MG CAPSULE (FP) PO SCH (14:00)
[2020-12-14] MEDS: NICOTINE 14 MG/24 HOURS TOPICAL PATCH TD SCH (15:39)
[2020-12-14] MEDS ORDERED: LORazepam 2 MG TABLET PO SCH (17:00)
[2020-12-14] MEDS: THIAMINE HCL 100 MG TABLET (FP) PO SCH (22:43)
[2020-12-14] MEDS: MELATONIN 5 MG TABLETS PO SCH (22:43)
[2020-12-15] MEDS ORDERED: METHADONE HCL 10 MG TABLET (FOR DETOX USE ONLY) ONE (09:14)
[2020-12-15] MEDS ORDERED: METHADONE HCL 5 MG TABLET (FOR DETOX USE ONLY) ONE (09:14)
[2020-12-15] MEDS ORDERED: METHADONE (DETOX) 20 MG, METHADONE (DETOX) 5 MG PO ONE (10:00)
[2020-12-15] MEDS: NICOTINE 14 MG/24 HOURS TOPICAL PATCH TD SCH (11:16)
[2020-12-15] MEDS: PRENATAL VITAMINS W/ FOLIC ACID TABLET (FP) PO SCH (11:16)
[2020-12-15 13:09] LABS: BASO % 1.3 % (0-2.0); EOS % 1.3 % (0-4.5); HEMATOCRIT 34.2 % (35.4-49); HEMOGLOBIN 11.6 GM/dL (11.7-16.9); LYMPH % 38.5 % (8-40); MCH 27.5 pg (25.7-33.7); MCHC 33.8 g/dl (32.0-35.9); MEAN CELL VOLUME 81.4 fl (80-96); MEAN PLT VOLUME 8.3 fl (7.5-11.1); MONO % 7.6 % (3.8-10.2); NEUT % 51.3 % (42.8-82.8); PLATELET COUNT 229 10^3/uL (134-434); RDW 16.7 % (11.9-15.9); WHITE BLOOD COUNT 3.5 K/mm3 (4.0-10.0)
[2020-12-15 13:17] LABS: CALCIUM 9.3 mg/dL (8.5-10.1)
[2020-12-15 13:18] LABS: ALBUMIN 3.2 g/dl (3.4-5.0); BLOOD UREA NITROGEN 15.5 mg/dL (7-18)
[2020-12-15 13:21] LABS: CREATININE 0.8 mg/dL (0.55-1.3)
[2020-12-15 13:22] LABS: BILIRUBIN,TOTAL 0.6 mg/dL (0.2-1)
[2020-12-15 13:23] LABS: TOT PROT 8.8 g/dl (6.4-8.2)
[2020-12-15] MEDS: MELATONIN 5 MG TABLETS PO SCH (23:05)
[2020-12-15] MEDS: THIAMINE HCL 100 MG TABLET (FP) PO SCH (23:06)
[2020-12-16] MEDS ORDERED: LORazepam 1 MG TABLET PO SCH (05:00)
[2020-12-16 06:45] VITALS: TEMP 97.5
[2020-12-16] MEDS ORDERED: METHADONE HCL 10 MG TABLET (FOR DETOX USE ONLY) PO ONE (10:00)
[2020-12-16 10:36] VITALS: BP 104/67; PULSE 86
[2020-12-16] MEDS: PRENATAL VITAMINS W/ FOLIC ACID TABLET (FP) PO SCH (10:39)
[2020-12-16] MEDS: NICOTINE 14 MG/24 HOURS TOPICAL PATCH TD SCH (10:39)
[2020-12-17] MEDS ORDERED: LORazepam 0.5 MG TABLET PO PRN
[2020-12-17] MEDS ORDERED: LORazepam 0.5 MG TABLET PO SCH (05:00)
[2020-12-17] MEDS ORDERED: METHADONE (DETOX) 10 MG, METHADONE (DETOX) 5 MG PO ONE (10:00)
[2020-12-18] MEDS ORDERED: LORazepam 0.5 MG TABLET PO ONE (05:00)
[2020-12-18] MEDS ORDERED: METHADONE HCL 10 MG TABLET (FOR DETOX USE ONLY) PO ONE (10:00)
[2020-12-19] MEDS ORDERED: METHADONE HCL 5 MG TABLET (FOR DETOX USE ONLY) PO ONE (06:00)
== END 2020-12-16 13:05 | disposition left against medical advice (07) | DRG 894 ==
LOC: YASAS 11:10 → Y3N 13:16
PROVIDERS: ADMIT Allergy & Immunology; ATTEND Allergy & Immunology
PROC: HZ2ZZZZ Detoxification Services for Substance Abuse Treatment (ICD-10-PCS; principal; 2020-12-14)
DX: F11.23 Opioid dependence with withdrawal (principal); F13.20 Sedative, hypnotic or anxiolytic dependence, uncomplicated; F10.20 Alcohol dependence, uncomplicated; F17.213 Nicotine dependence, cigarettes, with withdrawal; H54.62 Unqualified visual loss, left eye, normal vision right eye; Z98.890 Other specified postprocedural states
CPT/HCPCS: 36415; 80053; 85025; 86780; 93005; 93010; C9803; U0003; U0005